=== PATIENT | male | born 1940 | race Caucasian/White ===

== ENCOUNTER 2018-02-20 15:48 | Inpatient (IN) ==
--- NOTE | 2018-02-20 17:19 | ED ---
HPI General Chief complaint: Altered Mental Status Stated complaint: altered mental Time Seen by Provider: 02/20/18 15:52 Source: patient, family and EMS Mode of arrival: EMS Limitations: altered mental status History of Present Illness HPI narrative: 77yM presenting with confusion. The patient's friend called EMS because he was speaking to the patient on the phone and said that he sounded confused. The patient states that he came to the ED today because of "chest congestion". He reports chills and cough productive of clear sputum but denies fever, chest pain, nausea or vomiting. The patient is a very poor historian and is unable to provide further meaningful contribution to HPI. The patient's is at his bedside but has severe dementia and is also unable to give further details of HPI. Related Data Home Medications Medication Instructions Recorded Confirmed alfuzosin 10 mg PO HS 02/20/18 02/20/18 amiodarone 200 mg PO DAILY 02/20/18 02/20/18 atorvastatin 40 mg PO DAILY 02/20/18 02/20/18 budesonide-formoterol 2 puff INHALATION BID 02/20/18 02/20/18 finasteride 5 mg PO DAILY 02/20/18 02/20/18 gabapentin 600 mg PO TID 02/20/18 02/20/18 lisinopril 10 mg PO DAILY 02/20/18 02/20/18 meclizine 25 mg PO TID PRN 02/20/18 02/20/18 beinximc-dej-LW-lycopen-lutein 1 tab PO DAILY 02/20/18 02/20/18 [Centrum Silver] pantoprazole 40 mg PO DAILY 02/20/18 02/20/18 rivaroxaban [Xarelto] 20 mg PO QPM 02/20/18 02/20/18 ropinirole [Requip XL] 6 mg PO DAILY 02/20/18 02/20/18 ropinirole [Requip] 0.5 - 1 mg PO Q12HR PRN 02/20/18 02/20/18 sertraline [Zoloft] 150 mg PO DAILY 02/20/18 02/20/18 triamcinolone acetonide 1 applic TOPICAL DIRECTED 02/20/18 02/20/18 Allergies Allergy/AdvReac Type Severity Reaction Status Date / Time No Known Allergies Allergy Verified 02/20/18 17:20 Review of Systems ROS Unobtainable unobtainable due to mental status PMFSH History History Provided By: Patient Social History Social History Substance History: No History of Abuse Second Hand Smoke Exposure: No Smoking Status: Never smoker Tobacco Type: Cigarettes How Often Do You Have a Drink Containing Alcohol: Never Recent Travel in [facility] within the Last 8 Weeks: No Recent Out of Country Travel within the Last 8 Weeks: No Exam Const General: healthy appearing and no acute distress HENMT Head: normocephalic and atraumatic Face and sinus: normal facial exam Eyes General: appearance normal, both eyes and all related structures Pupils: PERRL Chest Chest: normal inspection of the chest Resp Effort & Inspection: normal respiratory effort Auscultation: no rhonchi and no wheezes Cardio Rate: regular rate Rhythm: regular rhythm GI Inspection: non-distended Palpation: soft and nontender Skin General: no rashes or lesions noted Neuro Other: Oriented to person and place but not time, easily distractable No slurred speech or aphasia Motor strength 5/5, sensation intact throughout Psych Affect: normal affect Course Consultations Consultation #1: Case discussed with Dr. Cazares of neurosurgery. He would like to keep the patient's systolic BP less than 160 and agrees with admission to ICU. I also spoke with Dr. Parker of [facility], who will admit. Time: 18:53 Initial Documented Vital Signs Temperature 101.0 F H 02/20/18 17:17 Last Documented Vital Signs Temperature 99.1 F 02/20/18 17:39 Pulse Rate 92 H 02/20/18 17:41 Respiratory Rate 18 02/20/18 17:39 Blood Pressure 178/81 H 02/20/18 17:39 Pulse Oximetry 97 02/20/18 17:39 Critical Care Time Critical Care Time: Yes Total Critical Care Time: 32 Attestation: Total critical care time 32 minutes. This includes examining and stabilizing the patient, gathering a history from a source other than the patient (i.e., EMS), formulating a differential diagnosis, ordering and interpreting laboratory tests and EKG, ordering and interpreting radiology tests , discussing the patient's care with other providers (neurosurgery, pharmacy, critical care), and reversal of novel anticoagulation. Medical Decision Making MDM Narrative Medical decision making narrative: Assessment: 77yM presenting with confusion/ AMS Plan: EKG Labs CT head UA CXR Reassess Addendum: Patient found to have intracranial hemorrhage (hypertensive vs mass); he will need admission to the intensive care unit for frequent neuro exams, further workup, neurosurgery consult, and reversal of novel anticoagulant. I discussed these results and plan with the patient, who understands. Differential Diagnosis Differential Diagnosis: Differential diagnosis includes, but is not limited to: UTI, PNA, electrolyte abnormality, dehydration, anemia, ICH Lab Data Lab results reviewed: Yes I reviewed the patient's lab results. Result diagrams: 02/20/18 17:32 02/20/18 17:32 Lab Results 02/20/18 02/20/18 02/20/18 Range/Units 17:32 17:32 17:32 WBC 10.8 (4.0-11.0) th/mm3 RBC 3.99 L (4.50-5.90) mil/mm3 Hgb 13.3 (13.0-17.0) gm/dL Hct 39.9 (39.0-51.0) % MCV 99.9 (80.0-100.0) fL MCH 33.2 (27.0-34.0) pg MCHC 33.3 (32.0-36.0) % RDW 14.7 (11.6-17.2) % Plt Count 181 (150-450) th/mm3 MPV 10.8 (7.0-11.0) fL Neut % (Auto) 64.2 (16.0-70.0) % Lymph % (Auto) 19.5 (9.0-44.0) % [place] % (Auto) 13.6 H (0.0-8.0) % Eos % (Auto) 2.2 (0.0-4.0) % Baso % (Auto) 0.5 (0.0-2.0) % Neut # (Auto) 6.9 (1.8-7.7) th/mm3 Lymph # (Auto) 2.1 (1.0-4.8) th/mm3 [place] # (Auto) 1.5 H (0.0-0.9) th/mm3 Eos # (Auto) 0.2 (0.0-0.4) th/mm3 Baso # (Auto) 0.1 (0.0-0.2) th/mm3 WBC Differential . Differential Comment Auto diff final Sodium 147 H (136-145) meq/L Potassium 4.4 (3.5-5.1) meq/L Chloride 113 H (98-107) meq/L Carbon Dioxide 27.4 (21.0-32.0) meq/L Anion Gap 7 (5-15) meq/L BUN 18 (7-18) mg/dL Creatinine 1.22 (0.60-1.30) mg/dL Estimated GFR 58 L (>89) mL/min Random Glucose 78 (74-106) mg/dL Calcium 8.2 L (8.5-10.1) mg/dL Total Bilirubin 1.6 H (0.2-1.0) mg/dL AST 40 H (15-37) U/L ALT 33 (12-78) U/L Alkaline Phosphatase 67 (45-117) U/L Total Protein 6.0 L (6.4-8.2) g/dL Albumin 3.1 L (3.4-5.0) g/dL Urine Color Haylie (Yellw/Straw) Urine Clarity Hazy H (Clear) Urine pH 6.0 (5.0-8.5) Ur Specific [place] 1.023 (1.002-1.035) Urine Protein 100 H (Neg-Trace) mg/dL Urine Glucose (UA) Negative (Negative) mg/dL Urine Ketones Trace (Negative) mg/dL Urine Occult Blood Negative (Negative) Urine Nitrate Negative (Negative) Urine Bilirubin Negative (Negative) Urine Urobilinogen 4 or greater (Less than 2) mg/dL Ur Leukocyte Esterase Negative (Negative) Urine RBC 1 (0-3) /hpf Urine WBC 1 (0-5) /hpf Urine Mucus Few H (Occasional) /lpf Micro UA Comment Culture not ind Urine Culture Comments Culture not ind Imaging Data Radiologist's impression: Chest X-Ray 02/20/18 17:07 CONCLUSION: The lungs are clear. No infiltrates seen. Head CT 02/20/18 17:21 CONCLUSION: 1. 1.6 cm spontaneously hyperdense lesion in the left striatum with associated mass effect or midline shift. This suggests focal hematoma or hemorrhagic tumor. 2. Low density in the left cerebral peduncle which is nonspecific in appearance , could possibly represent extension of edema from the striatum or second lesion. Recommend further characterization of these abnormalities using MRI of the brain with and without contrast. . ECG Data Interpretation: Rate: 70-150 BPM (average 85 BPM) Rhythm: Atrial fibrillation [place]: Normal Intervals: Normal intervals, no blocks, QTc 410 ms Q waves: V2 T waves: Inverted in II, III, aVF, V4-V6 ST segments: No elevations or depressions, limited analysis due to motion artifact Impression: Rate-controlled A fib, no previous EKG available for comparison Discharge Plan Physicians Team ED Provider: Sheila Young Primary Care Provider: UNKNOWN, Rxs /Orders / Referrals /Forms Prescriptions: No Action atorvastatin 40 mg Tablet 40 mg PO DAILY RF: 0 gabapentin 600 mg Tablet 600 mg PO TID RF: 0 amiodarone 200 mg Tablet 200 mg PO DAILY RF: 0 sertraline [Zoloft] 100 mg Tablet 150 mg PO DAILY RF: 0 triamcinolone acetonide 0.1 % Cream 1 applic Topical DIRECTED RF: 0 meclizine 25 mg Tablet 25 mg PO TID PRN (Reason: Dizziness) RF: 0 pantoprazole 40 mg Tablet,Delayed Release (Dr/Ec) 40 mg PO DAILY RF: 0 ropinirole [Requip] 0.5 mg Tablet 0.5 - 1 mg PO Q12HR PRN (Reason: Restless legs) RF: 0 lisinopril 10 mg Tablet 10 mg PO DAILY RF: 0 finasteride 5 mg Tablet 5 mg PO DAILY RF: 0 alfuzosin 10 mg Tablet Extended Release 24 Hr 10 mg PO HS RF: 0 kjycnpob-xay-KW-lycopen-lutein [Centrum Silver] 0.4-300-250 mg-mcg-mcg Tablet 1 tab PO DAILY RF: 0 budesonide-formoterol 160-4.5 mcg/actuation Hfa Aerosol Inhaler 2 puff INHALATION BID RF: 0 ropinirole [Requip XL] 6 mg Tablet Extended Release 24 Hr 6 mg PO DAILY RF: 0 rivaroxaban [Xarelto] 10 mg Tablet 20 mg PO QPM RF: 0 Discharge Interventions Interventions: Vital Signs Last Done: 02/20/18 17:39 Status ED Status: With Doctor
--- NOTE | 2018-02-20 17:47 | XR ---
EXAM DATE: 02/20/2018 5:35 PM EDT AGE/SEX: 77 years / Male INDICATIONS: . Cough. Congestion. CLINICAL DATA: This is the patient's initial encounter. Patient reports that signs and symptoms have been present for 4 - 6 days and indicates a pain score of 3/10. MEDICAL/SURGICAL HISTORY: None. None. COMPARISON: No prior exams available for comparison. FINDINGS: PA and lateral views of the chest demonstrate the lungs to be symmetrically aerated without evidence of mass, infiltrate or effusion. The cardiomediastinal contours are unremarkable. Mild degenerative c hanges in the thoracic spine. CONCLUSION: The lungs are clear. No infiltrates seen. Electronically signed by: John Cespedes MD 02/20/2018 5:45 PM EDT
[2018-02-20 17:58] LABS: Baso # (Auto) 0.1 th/mm3 (0.0-0.2); Baso % (Auto) 0.5 % (0.0-2.0); Eos # (Auto) 0.2 th/mm3 (0.0-0.4); Eos % (Auto) 2.2 % (0.0-4.0); Hematocrit 39.9 % (39.0-51.0); Hemoglobin 13.3 gm/dL (13.0-17.0); Lymph # (Auto) 2.1 th/mm3 (1.0-4.8); Lymph % (Auto) 19.5 % (9.0-44.0); Mean Corpuscular HGB Conc 33.3 % (32.0-36.0); Mean Corpuscular Hemoglobin 33.2 pg (27.0-34.0); Mean Corpuscular Volume 99.9 fL (80.0-100.0); Mean Platelet Volume 10.8 fL (7.0-11.0); Mono # (Auto) 1.5 th/mm3 (0.0-0.9); Mono % (Auto) 13.6 % (0.0-8.0); Neut # (Auto) 6.9 th/mm3 (1.8-7.7); Neut % (Auto) 64.2 % (16.0-70.0); Platelet Count 181 th/mm3 (150-450); Red Blood Count 3.99 mil/mm3 (4.50-5.90); Red Cell Distribution Width 14.7 % (11.6-17.2); White Blood Count 10.8 th/mm3 (4.0-11.0)
[2018-02-20 18:10] LABS: Bilirubin,Urine Negative (Negative); Clarity,Urine Hazy (Clear); Color,Urine Amber (Yellw/Straw); Glucose,Urine (UA) Negative (Negative); Leukocyte Esterase,Urine Negative (Negative); Mucus,Urine Few /lpf (Occasional); Nitrite,Urine Negative (Negative); Specific Gravity,Urine 1.023 (1.002-1.035); Urobilinogen,Urine 4 or Greater mg/dL (Less than 2)
[2018-02-20 18:20] LABS: Albumin 3.1 g/dL (3.4-5.0); Anion Gap 7 meq/L (5-15); Aspartate Aminotransferase 40 U/L (15-37); Blood Urea Nitrogen 18 mg/dL (7-18); Calcium 8.2 mg/dL (8.5-10.1); Carbon Dioxide 27.4 meq/L (21.0-32.0); Chloride 113 meq/L (98-107); Glomerular Filtration Rate 58 mL/min (>89); Glucose,Random 78 mg/dL (74-106); Potassium 4.4 meq/L (3.5-5.1); Sodium 147 meq/L (136-145)
[2018-02-20 18:21] LABS: Alanine Aminotransferase 33 U/L (12-78)
[2018-02-20 18:23] LABS: Alkaline Phosphatase 67 U/L (45-117)
--- NOTE | 2018-02-20 18:23 | CT ---
EXAM DATE: 02/20/2018 6:03 PM EDT AGE/SEX: 77 years / Male INDICATIONS: Altered mental status; fever with episodes of confusion. CLINICAL DATA: This is the patient's initial encounter. Patient reports that signs and symptoms have been present for 1 day and indicates a pain score of 0/10. MEDICAL/SURGICAL HISTORY: None. None. RADIATION DOSE: 64.63 CTDI (mGy) COMPARISON: No prior exams available for comparison. TECHNIQUE: CT of the head without contrast. Using automated exposure control and adjustment of the mA and/or kV according to patient size, radiation dose was kept as low as reasonably achievable to ob tain optimal diagnostic quality images. DICOM format image data is available electronically for revi ew and comparison. FINDINGS: Cerebrum: Abnormal. There is a 1.6 cm round hyperdense lesion with epicentered in the left striatum causing mass effect upon the body of the left lateral ventricle and 4 mm midline shift towards the ri ght. There is surrounding hypodensity in the striatum and external capsule suggesting edema. No focal lesions in the contralateral (right) side. No extra-axial fluid. Posterior Fossa: Abnormal. There is a 1.6 cm hypodensity involving the entire left cerebral peduncle without associated mass effect. This could represent extension of supratentorial edema into the brai nstem. The michael is normal in configuration and the cerebellum is grossly intact for noncontrast techn ique. The fourth ventricle is normal in size. Extracranial: The visualized portion of the orbits is intact. There is mucosal thickening in the lef t maxillary sinus. Skull: The calvaria is intact. No evidence of skull fracture. CONCLUSION: 1. 1.6 cm spontaneously hyperdense lesion in the left striatum with associated mass effect or midlin e shift. This suggests focal hematoma or hemorrhagic tumor. 2. Low density in the left cerebral peduncle which is nonspecific in appearance, could possibly repr esent extension of edema from the striatum or second lesion. Recommend further characterization of th galdino abnormalities using MRI of the brain with and without contrast. . Electronically signed by: John Cespedes MD 02/20/2018 6:21 PM EDT
[2018-02-20] MEDS ORDERED: PROTHROMBIN COMPLEX IV.SIG ONE (18:36)
[2018-02-20] MEDS ORDERED: Labetalol HCl Inj 100 MG/20 ML Vial IV.PUSH ONE (18:51)
[2018-02-20] MEDS ORDERED: niCARdipine Inj 25 MG/10 ML Vial ONE (19:20)
[2018-02-20] MEDS: niCARdipine Inj 25 MG in Sodium Chlor 0.9% Inj 240 ML IV.CONT PRN ×2 (19:25→19:55)
[2018-02-20] MEDS ORDERED: Acetaminophen 325 MG Tablet PO PRN (20:10)
[2018-02-20] MEDS ORDERED: Bisacodyl 10 MG Supp RECTAL PRN (20:10)
[2018-02-20] MEDS ORDERED: Magnesium Sulfate Inj 2 GM in Sodium Chlor 0.9% Inj 96 ML IV.SIG PRN (20:16)
[2018-02-20] MEDS ORDERED: Potassium Phosphate Inj 30 MMOL in Sodium Chlor 0.9% Inj 250 ML IV.SIG PRN (20:16)
[2018-02-20] MEDS ORDERED: Potassium Phosphate 500 MG Soluble Tablet PO PRN ×2 (20:16)
[2018-02-20] MEDS ORDERED: Potassium Chloride 25 MEQ Effervescent Tablet PO PRN (20:16)
[2018-02-20] MEDS ORDERED: Magnesium Sulfate Inj 4 GM in Sodium Chlor 0.9% Inj 92 ML IV.SIG PRN (20:16)
[2018-02-20] MEDS ORDERED: Potassium Chlor 40 mEq Premix 40 MEQ/100 ML PIGGYBACK IV.SIG PRN ×2 (20:16)
[2018-02-20] MEDS ORDERED: Potassium Chlor 20 mEq Premix 20 MEQ/100 ML PIGGYBACK IV.SIG PRN ×2 (20:16)
[2018-02-20] MEDS ORDERED: Sodium Phosphate Inj 30 MMOL in Sodium Chlor 0.9% Inj 250 ML IV.SIG PRN (20:16)
[2018-02-20] MEDS ORDERED: Magnesium Oxide 400 MG Tablet PO PRN (20:16)
[2018-02-20] MEDS ORDERED: Labetalol HCl Inj 100 MG/20 ML Vial IV.PUSH PRN (20:17)
[2018-02-20] MEDS ORDERED: Gadobutrol PF 15 MMOL/15 ML Vial (for RAD) IV.SIG ONE (20:53)
[2018-02-20] MEDS ORDERED: ALFUZOSIN 10 MG PO SCH (21:00)
--- NOTE | 2018-02-20 21:18 | MR ---
EXAM DATE: 02/20/2018 8:59 PM EDT AGE/SEX: 77 years / Male INDICATIONS: Altered mental status. Twitching. CLINICAL DATA: This is the patient's initial encounter. Patient reports that signs and symptoms have been present for 1 day and indicates a pain score of 0/10. MEDICAL/SURGICAL HISTORY: Hypertension. Renal insufficiency, chronic. Total knee replacement, left. Total knee replacement, right. Splenectomy. COMPARISON: No prior exams available for comparison. TECHNIQUE: Multiplanar, multisequence examination of the brain was performed without and with 12cc ml Gadavist (gadobutrol) contrast as a single exam dose. FINDINGS: Noncontrast CT demonstrated a hyperdensity in the left thalamus and hypodensity in the left striatum extending into the left cerebral peduncle. The MRI examination demonstrates signal abnormality with s ignificant T2 shortening in the left mid thalamus characteristic of intermediate age blood products a nd stop there is no T1 shortening within the hematoma and there is no significant restricted diffusio n. The chronic blood products measure 1.5 cm in size and correlating with the spontaneous hyperdensit y seen on CT. No surrounding cerebral edema in the left striatum with extends into the left cerebral peduncle. No enhancing masses seen. Mild midline shift to the right measures 4 mm. No extra-axial fluid collections. No evidence of acute infarction. Visualized portion of the paranasa l sinuses and orbits demonstrate left maxillary sinus mucosal thickening without air-fluid level. CONCLUSION: 1. 1.5 cm hemorrhage in the left thalamus with signal characteristics characteristic of subacute or chronic blood. No enhancing mass seen. Surrounding cerebral edema does cause 4 mm midline shift towar ds the right and extends into the left cerebral peduncle. Electronically signed by: John Cespedes MD 02/20/2018 9:16 PM EDT
--- NOTE | 2018-02-20 23:09 | P.HPCC ---
History of Present Illness Service: Critical care medicine Primary Care Physician: UNKNOWN Chief Complaint: Altered mental status/ICH History of Present Illness: History obtained by discussion with ED staff. Patient was able to answer some questions. He is accompanied by his who has moderately severe dementia and is not able to provide any history whatsoever. 77-year-old male with past medical history of hypertension, hyperlipidemia, atrial fibrillation status post recent ablation about 2 weeks ago on anticoagulation with Xarelto, prior tobacco abuse, restless leg syndrome who recently moved to [place] from [place] 1 week ago. He presents to [facility] emergency department after his friend was speaking with him on the phone and noticed that his mental status was not at baseline. [facility] was called. Patient states that over the last 2-3 days he has had some headache "on the top of his head" and decreased appetite. He states he has fallen 3 times. He denies nausea, vomiting, photophobia, neck pain, seizures, weight loss. + cough. CT brain report states: 1.6 cm spontaneously hyperdense lesion in the left striatum with associated mass effect or midline shift. This suggests focal hematoma or hemorrhagic tumor. Low density in the left cerebral peduncle which is nonspecific in appearance, could possibly represent extension of edema from the striatum or second lesion. Recommend further characterization of these abnormalities using MRI of the brain with and without contrast. Emergency department physician discussed these findings with Dr. Cazares who recommended blood pressure control with SBP <160 and admit to returns supervisor. Pt states that his last dose of Xarelto was 02/19/18 in the morning. Not sure how reliable this information is. He has received [facility] in the emergency department. - Diagnosis (1) Intracranial hemorrhage (2) Altered mental status (3) Tobacco abuse, in remission (4) Chronic anticoagulation Inpatient Certification: I certify that the inpatient services were ordered in accordance with Medicare regulations governing the order. This includes certification that hospital inpatient services are reasonable and necessary and in the case of services not specified as inpatient-only under 42 CFR 419.22(n), that they are appropriately provided as inpatient services in accordance to with the 2-midnight benchmark under 43 CFR 412.3(e) Estimated Total Length of Stay (Days): 5 Plans for Post Hospital Care: Not yet determined Review of Systems All other systems reviewed negative except as stated in [facility] - History History Provided By: Patient - Medical History Medical History: Medical History (Last Updated 02/21/18 @ 03:47 by Gala Parker MD) Tobacco abuse, in remission (Acute) Chronic anticoagulation (Acute) Peripheral neuropathy (Acute) Anxiety (Acute) BPH (benign prostatic hyperplasia) (Acute) Depression (Acute) Atrial fibrillation (Acute) GERD (gastroesophageal reflux disease) (Acute) HLD (hyperlipidemia) (Acute) RLS (restless legs syndrome) (Acute) - Surgical History Surgical History: Surgical History (Last Updated 02/21/18 @ 03:47 by Gala Parker MD) H/O splenectomy (Acute) History of bilateral knee arthroplasty (Acute) H/O sinus surgery (Acute) - Family History Family History: Family History (Last Updated 02/21/18 @ 09:20 by Gala Parker MD) Mother Diabetes - Tobacco History Second Hand Smoke Exposure: No (. with dementia and depends on him for care. ) Tobacco Use In Past 30 Days: No Smoking Status: Former smoker Tobacco Type: Cigarettes Years Smoked: 15 Smoking End Date: 46 years ago - Alcohol History How Often Do You Have a Drink Containing Alcohol: Never - Substance Use History Substance History: No History of Abuse - Travel History Recent Travel in the [place] Within the Last 8 Weeks: No Recent Travel Out of the Country Within the Last 8 Weeks: No - Immunization History Tetanus Immunization: Unsure Hx Influenza Vaccine This Season: Yes Medications and Allergies Active Medications: Active Medications Acetaminophen (Tylenol) 650 mg PO Q6H PRN PRN Reason: pain or temp >100.4 Al Hydroxide/Mg Hydroxide (Milk Of Frannie Lind) 30 ml PO Q12H PRN PRN Reason: Mild Constipation Albuterol (Albuterol Neb (Prn)) 2.5 mg NEB Q2HR NEB PRN PRN Reason: SHORTNESS OF BREATH/WHEEZING Amiodarone HCl (Cordarone) 200 mg PO DAILY [facility] Atorvastatin Calcium (Lipitor) 40 mg PO DAILY [facility] Bisacodyl (Dulcolax Supp) 10 mg RECTAL DAILY PRN PRN Reason: SEVERE CONSITIPATION Budesonide/Formoterol Fumarate (Symbicort 160/4.5 Mcg Inh) 2 puff INH BID [facility] Chlorhexidine Gluconate (Chlorhexidine 2% Cloth) 3 pack TOPICAL DAILY@0400 [facility] Stop: 02/26/18 03:59 Chlorhexidine Gluconate (Chlorhexidine 2% Cloth) 3 pack TOPICAL DAILY@0400 PRN PRN Reason: Extra cloth needed Stop: 02/26/18 03:59 Finasteride (Proscar) 5 mg PO DAILY [facility] Gabapentin (Neurontin) 600 mg PO TID [facility] Nicardipine HCl 25 mg/ Sodium (Chloride) 250 mls @ 50 mls/hr IV.CONT TITRATE PRN; Protocol PRN Reason: Per Protocol Last Titration: 02/20/18 19:56 Dose: 6 mg/hr, 60 mls/hr Potassium Chloride (Kcl 40 Meq Premix Inj) 40 meq in 100 mls @ 25 mls/hr IV.SIG Q2H PRN PRN Reason: For Potassium 2.8 - 3.2 mEq/L Magnesium Sulfate Inj 4 gm/ (Sodium Chloride) 100 mls @ 50 mls/hr IV.SIG UNSCH PRN PRN Reason: For Magnesium 0.9 - 1.1 mg/dL Magnesium Sulfate Inj 2 gm/ (Sodium Chloride) 100 mls @ 50 mls/hr IV.SIG UNSCH PRN PRN Reason: For Magnesium 1.2 - 1.6 mg/dL Potassium Chloride (Kcl 20 Meq Premix Inj) 20 meq in 100 mls @ 50 mls/hr IV.SIG Q2H PRN PRN Reason: For Potassium 3.3 - 3.5 mEq/L Potassium Chloride (Kcl 40 Meq Premix Inj) 40 meq in 100 mls @ 25 mls/hr IV.SIG UNSCH PRN PRN Reason: For Potassium 3.3 - 3.5 mEq/L Potassium Chloride (Kcl 20 Meq Premix Inj) 20 meq in 100 mls @ 50 mls/hr IV.SIG Q2H PRN PRN Reason: For Potassium 2.8 - 3.2 mEq/L Potassium Phosphate 30 mmol/ (Sodium Chloride) 260 mls @ 42 mls/hr IV.SIG UNSCH PRN PRN Reason: SEE LABEL COMMENTS Sodium Phosphate 30 mmol/ (Sodium Chloride) 260 mls @ 42 mls/hr IV.SIG UNSCH PRN PRN Reason: For Phosphorus < 2.5 mg/dL Labetalol HCl (Trandate Inj) 10 mg IV.PUSH Q4H PRN PRN Reason: SBP >160 Lactulose (Lactulose Liq) 30 ml PO DAILY PRN PRN Reason: SEVERE CONSITIPATION Magnesium Oxide (Mag-Ox) 800 mg PO UNSCH PRN PRN Reason: For Magnesium 1.2 - 1.6 mg/dL Pantoprazole Sodium (Protonix Inj) 40 mg IV.PUSH DAILY [facility] Pt Own Med: (Alfuzosin 10mg) 0 each PO HS [facility] Potassium Bicarb/Potassium Chloride (K-Lyte Cl Eff) 50 meq PO UNSCH PRN PRN Reason: For Potassium 3.3 - 3.5 mEq/L Potassium Phosphate (K-Phos Original) 2,000 mg PO Q4H PRN PRN Reason: Phosphorus Less Than 2.5 mg/dL Potassium Phosphate (K-Phos Original) 2,000 mg PO UNSCH PRN PRN Reason: SEE LABEL COMMENTS Senna/Docusate Sodium (Alanna-Colace) 1 tab PO BID [facility] Sennosides (Senokot) 17.2 mg PO Q12H PRN PRN Reason: Moderate Constipation Sertraline HCl (Zoloft) 150 mg PO DAILY [facility] Sodium Chloride (Ns Flush) 2 ml IV.FLUSH BID [facility] Sodium Chloride (Ns Flush) 2 ml IV.FLUSH PRN PRN PRN Reason: FLUSH AFTER USING IV ACCESS Triamcinolone Acetonide (Aristocort 0.1% Cream) 1 applicatio TOPICAL [facility] Allergies Allergy/AdvReac Type Severity Reaction Status Date / Time No Known Allergies Allergy Verified 02/20/18 17:20 Home Medications Medication Instructions Recorded Confirmed Type alfuzosin 10 mg PO HS 02/20/18 02/20/18 History amiodarone 200 mg PO DAILY 02/20/18 02/20/18 History atorvastatin 40 mg PO DAILY 02/20/18 02/20/18 History budesonide-formoterol 2 puff INHALATION BID 02/20/18 02/20/18 History finasteride 5 mg PO DAILY 02/20/18 02/20/18 History gabapentin 600 mg PO TID 02/20/18 02/20/18 History lisinopril 10 mg PO DAILY 02/20/18 02/20/18 History meclizine 25 mg PO TID PRN 02/20/18 02/20/18 History otwzbzyy-oel-JV-lycopen-lutein 1 tab PO DAILY 02/20/18 02/20/18 History [Centrum Silver] pantoprazole 40 mg PO DAILY 02/20/18 02/20/18 History rivaroxaban [Xarelto] 20 mg PO QPM 02/20/18 02/20/18 History ropinirole [Requip XL] 6 mg PO DAILY 02/20/18 02/20/18 History ropinirole [Requip] 0.5 - 1 mg PO Q12HR PRN 02/20/18 02/20/18 History sertraline [Zoloft] 150 mg PO DAILY 02/20/18 02/20/18 History triamcinolone acetonide 1 applic TOPICAL DIRECTED 02/20/18 02/20/18 History Results - Labs CBC & Chem 7: 02/21/18 03:44 02/21/18 03:44 Labs: Short CBC 02/20/18 Range/Units 17:32 WBC 10.8 (4.0-11.0) th/mm3 Hgb 13.3 (13.0-17.0) gm/dL Hct 39.9 (39.0-51.0) % Plt Count 181 (150-450) th/mm3 BMP 02/20/18 17:32 Sodium 147 H Potassium 4.4 Chloride 113 H Carbon Dioxide 27.4 BUN 18 Creatinine 1.22 Calcium 8.2 L Liver Function 02/20/18 Range/Units 17:32 Total Bilirubin 1.6 H (0.2-1.0) mg/dL AST 40 H (15-37) U/L ALT 33 (12-78) U/L Alkaline Phosphatase 67 (45-117) U/L Albumin 3.1 L (3.4-5.0) g/dL Urine 02/20/18 Range/Units 17:32 Urine Color Haylie (Yellw/Straw) Urine Clarity Hazy H (Clear) Urine pH 6.0 (5.0-8.5) Ur Specific [place] 1.023 (1.002-1.035) Urine Protein 100 H (Neg-Trace) mg/dL Urine Glucose (UA) Negative (Negative) mg/dL - Imaging Impressions Head MRI 02/20/18 00:00 CONCLUSION: 1. 1.5 cm hemorrhage in the left thalamus with signal characteristics characteristic of subacute or chronic blood. No enhancing mass seen. Surrounding cerebral edema does cause 4 mm midline shift towards the right and extends into the left cerebral peduncle. Chest X-Ray 02/20/18 17:07 CONCLUSION: The lungs are clear. No infiltrates seen. Head CT 02/20/18 17:21 CONCLUSION: 1. 1.6 cm spontaneously hyperdense lesion in the left striatum with associated mass effect or midline shift. This suggests focal hematoma or hemorrhagic tumor. 2. Low density in the left cerebral peduncle which is nonspecific in appearance , could possibly represent extension of edema from the striatum or second lesion. Recommend further characterization of these abnormalities using MRI of the brain with and without contrast. . Exam Vital signs: Vital Signs 02/20/18 17:17 02/20/18 17:39 02/20/18 17:41 Temperature 101.0 F H 99.1 F Pulse Rate 97 H 92 H Respiratory Rate 18 Blood Pressure 178/81 H Pulse Oximetry 97 02/20/18 19:01 02/20/18 19:03 02/20/18 19:15 Temperature Pulse Rate 93 H 83 88 Respiratory Rate 18 18 18 Blood Pressure 171/101 H 165/91 H 173/79 H Pulse Oximetry 97 02/20/18 19:24 02/20/18 19:57 02/20/18 21:32 Temperature Pulse Rate 87 93 H 82 Respiratory Rate 18 16 14 Blood Pressure 187/67 H 198/79 H 143/92 H Pulse Oximetry Intake & Output 02/20/18 02/20/18 02/21/18 06:59 18:59 06:59 Intake Total 250 / 250 Balance 250 / 250 Weight 110 kg Intake: IV 250 / 250 Cardene Inj 25 MG In NS Inj 240 250 / 250 ML @ 5 MG/HR 50 mls/hr IV.CONT TITRATE PRN Rx#:[id number] Narrative: GENERAL: Elderly male who is sitting up in ED stretcher. He is alert but at times confused. SKIN: Warm and dry. HEAD: Atraumatic. Normocephalic. EYES: Pupils equal and round 2 mm reactive. No scleral icterus. No injection or drainage. ENT: No nasal bleeding or discharge. Mucous membranes pink and moist. NECK: Trachea midline. No JVD. CARDIOVASCULAR: irregularly irregular. No murmurs rubs or gallops. RESPIRATORY: No accessory muscle use. Clear to auscultation. Breath sounds equal bilaterally. On RA. GASTROINTESTINAL: Abdomen soft, non-tender, nondistended. Bowel sounds present. MUSCULOSKELETAL: Extremities without clubbing, cyanosis, or edema. No obvious deformities. Ecchymosis and tenderness left 5th distal metatarsal and phalynx NEUROLOGICAL: Awake and alert. No obvious cranial nerve deficits. No facial droop. no pronator drift. Five out of 5 muscle strength in the arms and legs. Normal speech. Oriented to self, year, place, state. Caprini VTE Risk Assessment Caprini VTE Risk Assessment: Moderate/High Risk (score >= 2) VTE Pharmacological Exception Reason: Intracranial lesions Caprini Risk Assessment Model: Point Value = 1 Point Value = 2 Point Value = 3 Point Value = 5 Age 41-60 Minor surgery BMI > 25 kg/m2 Swollen legs Varicose veins or History of unexplained or recurrent spontaneous Oral contraceptives or hormone replacement Sepsis (< 1 month) Serious lung disease, including pneumonia (< 1 month) Abnormal pulmonary function Acute myocardial infarction Congestive heart failure (< 1 month) History of inflammatory bowel disease Medical patient at bed rest Age 61-74 Arthroscopic surgery Major open surgery (> 45 min) Laparoscopic surgery (> 45 min) Malignancy Confined to bed (> 72 hours) Immobilizing plaster cast Central venous access Age >= 75 History of VTE Family history of VTE Factor V Leiden Prothrombin [id number] Lupus anticoagulant Anticardiolipin antibodies Elevated serum homocysteine Heparin-induced thrombocytopenia Other congenital or acquired thrombophilia Stroke (< 1 month) Elective arthroplasty Hip, pelvis, or leg fracture Acute spinal cord injury (< 1 month) Prophylaxis Regimen: Total Risk Factor Score Risk Level Prophylaxis Regimen 0-1 Low Early ambulation 2 Moderate Order ONE of the following: *Sequential Compression Device (SCD) *Heparin 5000 units SQ BID 3-4 Higher Order ONE of the following medications: *Heparin 5000 units SQ TID *Enoxaparin/Lovenox 40 mg SQ daily (WT < 150 kg, CrCl > 30 mL/min) *Enoxaparin/Lovenox 30 mg SQ daily (WT < 150 kg, CrCl > 10-29 mL/min) *Enoxaparin/Lovenox 30 mg SQ BID (WT < 150 kg, CrCl > 30 mL/min) AND/OR *Sequential Compression Device (SCD) 5 or more Highest Order ONE of the following medications: *Heparin 5000 units SQ TID (Preferred with Epidurals) *Enoxaparin/Lovenox 40 mg SQ daily (WT < 150 kg, CrCl > 30 mL/min) *Enoxaparin/Lovenox 30 mg SQ daily (WT < 150 kg, CrCl > 10-29 mL/min) *Enoxaparin/Lovenox 30 mg SQ BID (WT < 150 kg, CrCl > 30 mL/min) AND *Sequential Compression Device (SCD) Assessment and Plan - Problem List (1) Intracranial hemorrhage Code(s): I62.9 - Nontraumatic intracranial hemorrhage, unspecified Status: Acute (2) Altered mental status Code(s): R41.82 - Altered mental status, unspecified Status: Acute (3) Tobacco abuse, in remission Code(s): F17.201 - Nicotine dependence, unspecified, in remission Status: Acute (4) Chronic anticoagulation Code(s): Z79.01 - correction (current) use of anticoagulants Status: Acute - Assessment and Plan Plan: NEURO: Subacute L Thalamic and basal ganglia hemorrhage Fall Restless leg syndrome Anxiety Depression MRI with 1.5 cm hemorrhage in left thalamus. There is edema with mass-effect, no mass lesion. Maintain systolic blood pressure less than 160. Hold Xarelto Received [facility] will follow up Continue ropinirole ER 6 mg p.o. (takes at 7 pm, pt to use own med because not on formulary) and 0.5 mg p.o. q12 (takes at bedtime) Continue gabapentin 600 mg p.o. 3 times daily, Zoloft 150 mg daily. RESP: COPD History of tobacco abuse On room air Continue Budesonide/formoterol 2 puffs inh bid. Albuterol prn. CV: Atrial fibrillation status post recent ablation 2weeks ago Chronic anticoagulation with warfarin Hyperlipidemia Continue amiodarone 200 mg daily Continue Lipitor 40 mg p.o. daily Cardene to maintain systolic blood pressure less than 160 GI: GERD Bedside swallow eval and then advance diet as appropriate.. Will request speech therapy consult if needed. FEN/RENAL: BPH Monitor electrolyte and replace as indicated per ICU electrolyte placement protocol Continue tamsulosin ID: Fever Isolated fever. ?secondary to ICH. Ua neg and cXR clear. f.u blood cultures. HAd some viral URI sxs. Watch off abx for now. HEME: Monitor CBC. ENDO: Euglycemic. PROPH: SCDs for DVT prophylaxis. Pharmacologic DVT prophylaxis contraindicated due to intracerebral hemorrhage. Protonix 40 mg IV daily for stress ulcer prophylaxis. ACCESS: Peripheral IV providing adequate access at this time FULL CODE Brother updated (John Patino [phone] and [phone] [place]) Level 3 H&P
[2018-02-21] MEDS ORDERED: Chlorhexidine Gluconate 2% 1 Pack (2 Cloths) TOPICAL PRN (04:00)
[2018-02-21] MEDS: niCARdipine Inj 25 MG in Sodium Chlor 0.9% Inj 240 ML IV.CONT PRN ×5 (04:28→21:43)
[2018-02-21 04:32] LABS: Baso % (Auto) 0.4 % (0.0-2.0); Eos # (Auto) 0.3 th/mm3 (0.0-0.4); Eos % (Auto) 3.2 % (0.0-4.0); Hematocrit 41.7 % (39.0-51.0); Hemoglobin 14.1 gm/dL (13.0-17.0); Lymph # (Auto) 2.2 th/mm3 (1.0-4.8); Lymph % (Auto) 20.9 % (9.0-44.0); Mean Corpuscular HGB Conc 33.9 % (32.0-36.0); Mean Corpuscular Hemoglobin 32.8 pg (27.0-34.0); Mean Corpuscular Volume 96.7 fL (80.0-100.0); Mean Platelet Volume 10.3 fL (7.0-11.0); Mono # (Auto) 1.4 th/mm3 (0.0-0.9); Mono % (Auto) 13.2 % (0.0-8.0); Neut # (Auto) 6.5 th/mm3 (1.8-7.7); Neut % (Auto) 62.3 % (16.0-70.0); Platelet Count 186 th/mm3 (150-450); Red Blood Count 4.31 mil/mm3 (4.50-5.90); Red Cell Distribution Width 14.2 % (11.6-17.2); White Blood Count 10.5 th/mm3 (4.0-11.0)
[2018-02-21 04:53] LABS: Activated Partial Thrombo Time 24.3 sec (24.3-30.1); INR 1.1 Ratio; Prothrombin Time 10.7 sec (9.8-11.6)
[2018-02-21 05:10] LABS: Alanine Aminotransferase 36 U/L (12-78); Albumin 3.6 g/dL (3.4-5.0); Alkaline Phosphatase 75 U/L (45-117); Anion Gap 9 meq/L (5-15); Aspartate Aminotransferase 40 U/L (15-37); Blood Urea Nitrogen 15 mg/dL (7-18); Calcium 8.4 mg/dL (8.5-10.1); Carbon Dioxide 24.9 meq/L (21.0-32.0); Chloride 111 meq/L (98-107); Glomerular Filtration Rate 73 mL/min (>89); Glucose,Random 77 mg/dL (74-106); Potassium 3.2 meq/L (3.5-5.1); Sodium 145 meq/L (136-145); Total Protein 6.7 g/dL (6.4-8.2); Troponin I 0.04 ng/mL (0.02-0.05)
[2018-02-21] MEDS: Budesonide-Formoterol 160/4.5 MCG 6 GM Inhaler INH SCH ×3 (09:26→21:45)
[2018-02-21] MEDS: Senna/Docusate Sodium 8.6/50 MG Tablet PO SCH ×3 (09:26→21:45)
[2018-02-21] MEDS: Chlorhexidine Gluconate 2% 1 Pack (2 Cloths) TOPICAL SCH (09:26)
[2018-02-21] MEDS: Amiodarone 200 MG Tablet PO SCH (09:28)
[2018-02-21] MEDS: Gabapentin 300 MG Capsule PO SCH ×3 (09:28→18:54)
[2018-02-21] MEDS: Pantoprazole Inj 40 MG Vial IV.PUSH SCH (09:28)
[2018-02-21] MEDS: Finasteride 5 MG Tablet PO SCH (09:28)
[2018-02-21] MEDS: Sertraline 100 MG Tablet PO SCH (09:30)
--- NOTE | 2018-02-21 09:43 | XR ---
EXAM DATE: 02/21/2018 9:15 AM EDT AGE/SEX: 77 years / Male INDICATIONS: Left foot pain. Patient stated that he hit it on a tree. CLINICAL DATA: This is the patient's initial encounter. Patient reports that signs and symptoms have been present for 4 - 6 days and indicates a pain score of 6/10. MEDICAL/SURGICAL HISTORY: None. None. COMPARISON: No prior exams available for comparison. FINDINGS: Limited AP and lateral views of the left foot were obtained and not a standard 3 view trauma study li miting the sensitivity for detection of subtle fractures. There is diffuse patchy osteopenia with no visualized fracture or malalignment identified. There are mild degenerative changes. There is a small spur off the inferior calcaneus at the site of attachment of the plantar aponeurosis. CONCLUSION: 1. Limited 2 view exam. 2. No visualized fracture or malalignment. 3. Osteopenia and osteoarthritic change. 4. Small spur off the inferior calcaneus. 5. If clinical concern remains then a standard 3 view trauma study could be performed. Electronically signed by: Augusto Sampson MD 02/21/2018 9:41 AM EDT
--- NOTE | 2018-02-21 10:34 | P.CON ---
History of Present Illness Service: Neurosurgery Consult date: 02/21/18 Requesting Physician: Gala Parker Reason for Consult: Left basal ganglia hemorrhage Primary Care Provider: UNKNOWN Chief Complaint: Altered mental status/ICH History of Present Illness: 77-year-old male with past medical history of hypertension, hyperlipidemia, atrial fibrillation status post recent ablation about 2 weeks ago on anticoagulation with Xarelto, prior tobacco abuse, restless leg syndrome who recently moved to [place] from [place] 1 week ago. He presents to [facility] emergency department after his friend was speaking with him on the phone and noticed that his mental status was not at baseline. [facility] was called. Patient states that over the last 2-3 days he has had some headache "on the top of his head" and decreased appetite. He states he has fallen 3 times. He denies nausea, vomiting, photophobia, neck pain, seizures, weight loss. Brother is at bedside and relates that he is more confused although since last night he has improved. He was hypertensive in the emergency room and has been on Cardene drip overnight. CT scan of the head as well as subsequent MRI scan of the brain with contrast reveals a 1.6 cm left basal ganglia hemorrhage with some surrounding edema but no underlying mass. Review of Systems Constitutional: Reports headache(s), Reports lack of energy, Denies anorexia, Denies body ache(s), Denies chills, Denies daytime sleepiness, Denies excessive sweating, Denies fatigue, Denies fever(s), Denies increased appetite, Denies malaise, Denies night sweats, Denies weakness, Denies weight gain, Denies weight loss, Denies other Eyes: Denies blind spots, Denies blurry vision, Denies bulging eyes, Denies change in vision, Denies double vision, Denies discharge, Denies dry eyes, Denies floaters, Denies irritation, Denies itchy eyes, Denies loss of vision, Denies pain, Denies requires corrective lenses, Denies sensitivity to light, Denies other Ears, Nose, Mouth, and Throat: Denies abnormal hearing, Denies bleeding gums, Denies bad breath, Denies change in voice, Denies dental pain, Denies difficulty swallowing, Denies dizziness, Denies dry mouth, Denies ear discharge , Denies ear pain, Denies facial pain, Denies headache(s), Denies hearing loss, Denies hoarseness, Denies lip swelling, Denies nosebleed, Denies mouth lesions, Denies mouth pain, Denies nasal congestion, Denies nasal discharge, Denies nasal obstruction, Denies nasal trauma, Denies neck lump, Denies neck pain, Denies nose pain, Denies pain with swallowing, Denies poor balance, Denies post nasal drip, Denies ringing in the ears, Denies sinus pain, Denies sinus pressure , Denies sore throat, Denies throat swelling, Denies tongue swelling, Denies other Cardiovascular: Denies chest pain, Denies chest pain at rest, Denies chest pain with activity, Denies excessive sweating, Denies fainting, Denies fast heart rate, Denies foot swelling, Denies generalized swelling, Denies irregular heart rhythm, Denies leg pain with activity, Denies leg sores, Denies leg swelling, Denies lightheadedness, Denies radiating jaw, neck or arm pain, Denies rapid, pounding, or irregular heartbeat, Denies shortness of breath, Denies shortness of breath with activity, Denies shortness of breath when lying down, Denies shortness of breath causing sudden awakening, Denies slow heart rate, Denies other Respiratory: Denies change in phlegm color, Denies chest congestion, Denies cough, Denies coughing up blood, Denies excessive phlegm production, Denies pain on inspiration, Denies pain with cough, Denies shortness of breath, Denies shortness of breath with activity, Denies snoring, Denies stridor, Denies wheezing, Denies other Gastrointestinal: Denies abdominal pain, Denies belching, Denies black, tarry stools, Denies bloating, Denies bright, red blood in stools, Denies change in bowel habits, Denies constant urge to pass stool, Denies change in stools, Denies coffee ground vomit, Denies constipation, Denies cramping, Denies difficulty swallowing, Denies excessive passing of gas, Denies feeling full early, Denies heartburn, Denies incontinent of stools, Denies loose stools, Denies nausea, Denies pain with swallowing, Denies vomiting, Denies vomiting blood, Denies other Genitourinary: Denies blood in semen, Denies blood in urine, Denies decreased urination, Denies difficulty urinating, Denies difficulty with ejaculations, Denies erectile dysfunction, Denies genital lesions, Denies genital pain, Denies painful urination, Denies side pain, Denies frequent nighttime urination , Denies painful ejaculations, Denies penile discharge, Denies scrotal swelling , Denies testicle lump, Denies testicle pain, Denies urinary frequency, Denies urinary hesitancy, Denies urinary incontinence, Denies urinary urgency, Denies other Musculoskeletal: Reports muscle weakness, Reports stiffness, Denies abnormal walking, Denies back pain, Denies body aches, Denies decreased muscle mass, Denies deformity, Denies joint pain, Denies joint swelling, Denies limited joint movement, Denies loss of height, Denies muscle cramps, Denies neck pain, Denies numbness, Denies radiating pain into limb, Denies tingling, Denies other Skin/Breast: Denies acne, Denies bleeding lesions, Denies boil, Denies breast swelling, Denies breast skin changes, Denies breast pain, Denies breast lump, Denies change in breast shape, Denies change in hair, Denies change in skin color, Denies changing lesions, Denies dry skin, Denies excessive hair growth, Denies hair loss, Denies itching, Denies lesions, Denies nail changes, Denies new lesions, Denies nipple discharge, Denies non-healing lesions, Denies redness , Denies sensitivity to light, Denies rash, Denies skin pain, Denies skin ulcer , Denies sores, Denies stretch kidd, Denies unusual bruising, Denies wounds, Denies yellowing of the skin, Denies other Neurologic: Reports abnormal speech, Reports abnormal walking, Reports confusion , Reports headache(s), Reports lack of coordination, Reports unsteadiness, Reports weakness, Denies abnormal hearing, Denies abnormal movements, Denies behavioral changes, Denies burning sensations, Denies dizziness, Denies fainting , Denies frequent falls, Denies localized weakness, Denies loss of vision, Denies memory loss, Denies numbness, Denies other visual disturbances, Denies radiating pain, Denies restless legs, Denies convulsions, Denies seizure-like activity, Denies sensory deficit, Denies tingling, Denies tingling/numbness/ burning sensations, Denies tremor(s), Denies other Psychiatric: Denies abnormal sleep pattern, Denies anxiety, Denies behavioral changes, Denies change in appetite, Denies change in sex drive, Denies confusion , Denies depression, Denies difficulty concentrating, Denies hearing things others do not hear, Denies hopelessness, Denies irritability, Denies lack of enjoyment, Denies memory loss, Denies mood swings, Denies panic attacks, Denies paranoia, Denies seeing things others do not see, Denies sensing things others do not sense, Denies tactile hallucinations, Denies thoughts of hurting/killing others, Denies thoughts of hurting/killing yourself, Denies other Endocrine: Denies cold intolerance, Denies excessive sweating, Denies flushing, Denies heat intolerance, Denies increased hunger, Denies increased thirst, Denies increased urination, Denies rapid, pounding, or irregular heartbeat, Denies other Hematologic/Lymphatic: Reports easy bleeding, Reports easy bruising, Denies enlarged lymph nodes, Denies other Allergic/Immunologic: Denies GI upset with certain foods, Denies hives, Denies itchy eyes, Denies lip swelling, Denies seasonal runny nose, Denies throat swelling, Denies tongue swelling, Denies wheezing, Denies other PMFSH - History History Provided By: Patient - Medical History Medical History: Medical History (Last Updated 02/21/18 @ 03:47 by Gala Parker MD) Tobacco abuse, in remission (Acute) Chronic anticoagulation (Acute) Peripheral neuropathy (Acute) Anxiety (Acute) BPH (benign prostatic hyperplasia) (Acute) Depression (Acute) Atrial fibrillation (Acute) GERD (gastroesophageal reflux disease) (Acute) HLD (hyperlipidemia) (Acute) RLS (restless legs syndrome) (Acute) - Surgical History Surgical History: Surgical History (Last Updated 02/21/18 @ 03:47 by Gala Parker MD) H/O splenectomy (Acute) History of bilateral knee arthroplasty (Acute) H/O sinus surgery (Acute) - Family History Family History: Family History (Last Updated 02/21/18 @ 09:20 by Gala Parker MD) Mother Diabetes - Tobacco History Second Hand Smoke Exposure: No (. with dementia and depends on him for care. ) Tobacco Use In Past 30 Days: No Smoking Status: Former smoker Tobacco Type: Cigarettes Years Smoked: 15 Smoking End Date: 46 years ago - Alcohol History How Often Do You Have a Drink Containing Alcohol: Never - Substance Use History Substance History: No History of Abuse - Travel History Recent Travel in the [place] Within the Last 8 Weeks: No Recent Travel Out of the Country Within the Last 8 Weeks: No - Immunization History Tetanus Immunization: Unsure Hx Influenza Vaccine This Season: Yes Medications and Allergies Active Medications: Active Medications Acetaminophen (Tylenol) 650 mg PO Q6H PRN PRN Reason: pain or temp >100.4 Al Hydroxide/Mg Hydroxide (Milk Of Frannie Lind) 30 ml PO Q12H PRN PRN Reason: Mild Constipation Albuterol (Albuterol Neb (Prn)) 2.5 mg NEB Q2HR NEB PRN PRN Reason: SHORTNESS OF BREATH/WHEEZING Amiodarone HCl (Cordarone) 200 mg PO DAILY [facility] Last Admin: 02/21/18 09:28 Dose: 200 mg Atorvastatin Calcium (Lipitor) 40 mg PO DAILY [facility] Last Admin: 02/21/18 09:32 Dose: 40 mg Bisacodyl (Dulcolax Supp) 10 mg RECTAL DAILY PRN PRN Reason: SEVERE CONSITIPATION Budesonide/Formoterol Fumarate (Symbicort 160/4.5 Mcg Inh) 2 puff INH BID [facility] Last Admin: 02/21/18 09:32 Dose: 2 puff Chlorhexidine Gluconate (Chlorhexidine 2% Cloth) 3 pack TOPICAL DAILY@0400 [facility] Stop: 02/26/18 03:59 Last Admin: 02/21/18 09:26 Dose: Not Given Chlorhexidine Gluconate (Chlorhexidine 2% Cloth) 3 pack TOPICAL DAILY@0400 PRN PRN Reason: Extra cloth needed Stop: 02/26/18 03:59 Finasteride (Proscar) 5 mg PO DAILY [facility] Last Admin: 02/21/18 09:28 Dose: 5 mg Gabapentin (Neurontin) 600 mg PO TID [facility] Last Admin: 02/21/18 09:28 Dose: 600 mg Nicardipine HCl 25 mg/ Sodium (Chloride) 250 mls @ 50 mls/hr IV.CONT TITRATE PRN; Protocol PRN Reason: Per Protocol Last Titration: 07/23/18 07:45 Dose: 5 mg/hr, 50 mls/hr Potassium Chloride (Kcl 40 Meq Premix Inj) 40 meq in 100 mls @ 25 mls/hr IV.SIG Q2H PRN PRN Reason: For Potassium 2.8 - 3.2 mEq/L Magnesium Sulfate Inj 4 gm/ (Sodium Chloride) 100 mls @ 50 mls/hr IV.SIG UNSCH PRN PRN Reason: For Magnesium 0.9 - 1.1 mg/dL Magnesium Sulfate Inj 2 gm/ (Sodium Chloride) 100 mls @ 50 mls/hr IV.SIG UNSCH PRN PRN Reason: For Magnesium 1.2 - 1.6 mg/dL Potassium Chloride (Kcl 20 Meq Premix Inj) 20 meq in 100 mls @ 50 mls/hr IV.SIG Q2H PRN PRN Reason: For Potassium 3.3 - 3.5 mEq/L Potassium Chloride (Kcl 40 Meq Premix Inj) 40 meq in 100 mls @ 25 mls/hr IV.SIG UNSCH PRN PRN Reason: For Potassium 3.3 - 3.5 mEq/L Potassium Chloride (Kcl 20 Meq Premix Inj) 20 meq in 100 mls @ 50 mls/hr IV.SIG Q2H PRN PRN Reason: For Potassium 2.8 - 3.2 mEq/L Potassium Phosphate 30 mmol/ (Sodium Chloride) 260 mls @ 42 mls/hr IV.SIG UNSCH PRN PRN Reason: SEE LABEL COMMENTS Sodium Phosphate 30 mmol/ (Sodium Chloride) 260 mls @ 42 mls/hr IV.SIG UNSCH PRN PRN Reason: For Phosphorus < 2.5 mg/dL Labetalol HCl (Trandate Inj) 10 mg IV.PUSH Q4H PRN PRN Reason: SBP >160 Lactulose (Lactulose Liq) 30 ml PO DAILY PRN PRN Reason: SEVERE CONSITIPATION Magnesium Oxide (Mag-Ox) 800 mg PO UNSCH PRN PRN Reason: For Magnesium 1.2 - 1.6 mg/dL Pantoprazole Sodium (Protonix Inj) 40 mg IV.PUSH DAILY [facility] Last Admin: 02/21/18 09:28 Dose: 40 mg Pt Own Med: (Alfuzosin 10mg) 0 each PO HS [facility] Patient Own Medication (Patient Own Medication) 6 each PO HS [facility] Potassium Bicarb/Potassium Chloride (K-Lyte Cl Eff) 50 meq PO UNSCH PRN PRN Reason: For Potassium 3.3 - 3.5 mEq/L Potassium Phosphate (K-Phos Original) 2,000 mg PO Q4H PRN PRN Reason: Phosphorus Less Than 2.5 mg/dL Potassium Phosphate (K-Phos Original) 2,000 mg PO UNSCH PRN PRN Reason: SEE LABEL COMMENTS Ropinirole HCl (Requip) 0.5 mg PO Q12H PRN PRN Reason: RESTLESS LEGS Senna/Docusate Sodium (Alanna-Colace) 1 tab PO BID [facility] Last Admin: 02/21/18 09:32 Dose: 1 tab Sennosides (Senokot) 17.2 mg PO Q12H PRN PRN Reason: Moderate Constipation Sertraline HCl (Zoloft) 150 mg PO DAILY [facility] Last Admin: 02/21/18 09:30 Dose: 150 mg Sodium Chloride (Ns Flush) 2 ml IV.FLUSH BID [facility] Last Admin: 02/21/18 09:33 Dose: 2 ml Sodium Chloride (Ns Flush) 2 ml IV.FLUSH PRN PRN PRN Reason: FLUSH AFTER USING IV ACCESS Triamcinolone Acetonide (Aristocort 0.1% Cream) 1 applicatio TOPICAL [facility] Allergies Allergy/AdvReac Type Severity Reaction Status Date / Time No Known Allergies Allergy Verified 02/20/18 17:20 Home Medications Medication Instructions Recorded Confirmed Type alfuzosin 10 mg PO HS 02/20/18 02/20/18 History amiodarone 200 mg PO DAILY 02/20/18 02/20/18 History atorvastatin 40 mg PO DAILY 02/20/18 02/20/18 History budesonide-formoterol 2 puff INHALATION BID 02/20/18 02/20/18 History finasteride 5 mg PO DAILY 02/20/18 02/20/18 History gabapentin 600 mg PO TID 02/20/18 02/20/18 History lisinopril 10 mg PO DAILY 02/20/18 02/20/18 History meclizine 25 mg PO TID PRN 02/20/18 02/20/18 History cezxnlde-kxb-RW-lycopen-lutein 1 tab PO DAILY 02/20/18 02/20/18 History [Centrum Silver] pantoprazole 40 mg PO DAILY 02/20/18 02/20/18 History rivaroxaban [Xarelto] 20 mg PO QPM 02/20/18 02/20/18 History ropinirole [Requip XL] 6 mg PO DAILY 02/20/18 02/20/18 History ropinirole [Requip] 0.5 - 1 mg PO Q12HR PRN 02/20/18 02/20/18 History sertraline [Zoloft] 150 mg PO DAILY 02/20/18 02/20/18 History triamcinolone acetonide 1 applic TOPICAL DIRECTED 02/20/18 02/20/18 History Physical Exam Vital signs: Vital Signs 02/20/18 17:17 02/20/18 17:39 02/20/18 17:41 Temperature 101.0 F H 99.1 F Pulse Rate 97 H 92 H Respiratory Rate 18 Blood Pressure 178/81 H Pulse Oximetry 97 02/20/18 19:01 02/20/18 19:03 02/20/18 19:15 Temperature Pulse Rate 93 H 83 88 Respiratory Rate 18 18 18 Blood Pressure 171/101 H 165/91 H 173/79 H Pulse Oximetry 97 02/20/18 19:24 02/20/18 19:57 02/20/18 21:32 Temperature Pulse Rate 87 93 H 82 Respiratory Rate 18 16 14 Blood Pressure 187/67 H 198/79 H 143/92 H Pulse Oximetry 02/20/18 22:00 02/21/18 00:00 02/21/18 02:00 Temperature Pulse Rate 85 86 86 Respiratory Rate Blood Pressure Pulse Oximetry 02/21/18 04:00 02/21/18 06:00 Temperature 98.6 F Pulse Rate 88 88 Respiratory Rate 18 Blood Pressure 128/65 Pulse Oximetry 95 Intake & Output 02/20/18 02/21/18 02/21/18 18:59 06:59 18:59 Intake Total 500 / 500 250 / 250 Output Total 600 / 600 Balance -100 / -100 250 / 250 Weight 110 kg 120.1 kg Intake: IV 500 / 500 250 / 250 Cardene Inj 25 MG In NS Inj 240 500 / 500 250 / 250 ML @ 5 MG/HR 50 mls/hr IV.CONT TITRATE PRN Rx#:[id number] Output: Urine 600 / 600 Other: # Bowel Movements 0 Weight On Admission 120.1 kg - Constitutional no acute distress - Routine HEENT Exam Head: Present: normocephalic, atraumatic Eye: Present: EOMI, PERRL ENT: Present: mucous membranes moist, oropharynx clear, dentition normal, nares patent, external ear normal - Routine Neck Exam Present: supple, full ROM - Routine Respiratory Exam Present: CTA bilaterally - Routine Cardiovascular Exam Present: S1, S2, irregular rhythm, irregularly irregular - Routine Abdominal Exam Present: soft, normoactive bowel sounds - Routine Extremities Exam Present: full ROM, pulses intact, normal capillary refill - Routine Skin Exam Present: intact, normal turgor - Routine Neurological Exam Present: alert, CN II-XII intact, normal reflexes, pronator drift, normal speech He is awake alert he knows his name he knows is in the hospital not oriented to the exact date, extraocular muscles are intact, face is symmetric tongue is midline he moves all 4 extremities although has a right pronator drift. Speech is fluent and appreciates light touch sensation bilaterally. - Routine Psychiatric Exam Present: normal affect, cooperative Assessment and Plan - Assessment (1) Basal ganglia hemorrhage Code(s): I61.0 - Nontraumatic intracerebral hemorrhage in hemisphere, subcortical Status: Acute (2) Hypertension Code(s): I10 - Essential (primary) hypertension Status: Acute (3) Intracranial hemorrhage Code(s): I62.9 - Nontraumatic intracranial hemorrhage, unspecified Status: Acute (4) Medication induced coagulopathy Code(s): D68.9 - Coagulation defect, unspecified; T50.905A - Adverse effect of unspecified drugs, medicaments and biological substances, initial encounter Status: Acute (5) Atrial fibrillation Code(s): I48.91 - Unspecified atrial fibrillation Status: Acute - Plan 77-year-old gentleman with a several day history of confusion after a fall where he tripped and fell forward but did not strike his head or lose consciousness. He is found to have a 1.6 cm left basal ganglia hemorrhage with some surrounding edema which is stable on follow-up MRI scan with no enhancing mass noted. This is characteristic of a hypertensive bleed and he is on Cardene drip for hypertension regulation. He is also on chronic anticoagulation with Xarelto for his atrial fibrillation. Recommend hypertension regulation and holding off anticoagulation for 10-14 days. Increase diet and activity status with the physical therapy, Occupational Therapy and speech therapy involvement. At this point the plan is for nonsurgical medical management. Discussed with patient and updated the brother at bedside. Radiology Note Impressions Head MRI 02/20/18 00:00 CONCLUSION: 1. 1.5 cm hemorrhage in the left thalamus with signal characteristics characteristic of subacute or chronic blood. No enhancing mass seen. Surrounding cerebral edema does cause 4 mm midline shift towards the right and extends into the left cerebral peduncle. Chest X-Ray 02/20/18 17:07 CONCLUSION: The lungs are clear. No infiltrates seen. Head CT 02/20/18 17:21 CONCLUSION: 1. 1.6 cm spontaneously hyperdense lesion in the left striatum with associated mass effect or midline shift. This suggests focal hematoma or hemorrhagic tumor. 2. Low density in the left cerebral peduncle which is nonspecific in appearance , could possibly represent extension of edema from the striatum or second lesion. Recommend further characterization of these abnormalities using MRI of the brain with and without contrast. . Foot X-Ray 02/21/18 00:00 CONCLUSION: 1. Limited 2 view exam. 2. No visualized fracture or malalignment. 3. Osteopenia and osteoarthritic change. 4. Small spur off the inferior calcaneus. 5. If clinical concern remains then a standard 3 view trauma study could be performed. (2) Hypertension Qualifiers: Hypertension type: essential hypertension Qualified Code(s): I10 - Essential (primary) hypertension
--- NOTE | 2018-02-21 16:33 | P.PNCC ---
Subjective Subjective Remarks/Hospital Course: History obtained by discussion with ED staff. Patient was able to answer some questions. He is accompanied by his who has moderately severe dementia and is not able to provide any history whatsoever. 77-year-old male with past medical history of hypertension, hyperlipidemia, atrial fibrillation status post recent ablation about 2 weeks ago on anticoagulation with Xarelto, prior tobacco abuse, restless leg syndrome who recently moved to [place] from [place] 1 week ago. He presents to [facility] emergency department after his friend was speaking with him on the phone and noticed that his mental status was not at baseline. EVAC was called. Patient states that over the last 2-3 days he has had some headache "on the top of his head" and decreased appetite. He states he has fallen 3 times. He denies nausea, vomiting, photophobia, neck pain, seizures, weight loss. + cough. CT brain report states: 1.6 cm spontaneously hyperdense lesion in the left striatum with associated mass effect or midline shift. This suggests focal hematoma or hemorrhagic tumor. Low density in the left cerebral peduncle which is nonspecific in appearance, could possibly represent extension of edema from the striatum or second lesion. Recommend further characterization of these abnormalities using MRI of the brain with and without contrast. Emergency department physician discussed these findings with Dr. Cazares who recommended blood pressure control with SBP <160 and admit to annual giving officer. Pt states that his last dose of Xarelto was 02/19/18 in the morning. Not sure how reliable this information is. He has received [facility] in the emergency department. 02/21: Remains conversant, responsive. Moves 4 limbs to command. Protects airway. MRI with 4 mm midline shift apparent. Objective Vital Signs / I&O: Vital Signs 02/20/18 17:17 02/20/18 17:39 02/20/18 17:41 Temperature 101.0 F H 99.1 F Pulse Rate 97 H 92 H Respiratory Rate 18 Blood Pressure 178/81 H Pulse Oximetry 97 02/20/18 19:01 02/20/18 19:03 02/20/18 19:15 Temperature Pulse Rate 93 H 83 88 Respiratory Rate 18 18 18 Blood Pressure 171/101 H 165/91 H 173/79 H Pulse Oximetry 97 02/20/18 19:24 02/20/18 19:57 02/20/18 21:32 Temperature Pulse Rate 87 93 H 82 Respiratory Rate 18 16 14 Blood Pressure 187/67 H 198/79 H 143/92 H Pulse Oximetry 02/20/18 22:00 02/21/18 00:00 02/21/18 02:00 Temperature Pulse Rate 85 86 86 Respiratory Rate Blood Pressure Pulse Oximetry 02/21/18 04:00 02/21/18 06:00 Temperature 98.6 F Pulse Rate 88 88 Respiratory Rate 18 Blood Pressure 128/65 Pulse Oximetry 95 Intake & Output 02/20/18 02/21/18 02/21/18 18:59 06:59 18:59 Intake Total 500 / 500 750 / 750 Output Total 600 / 600 Balance -100 / -100 750 / 750 Weight 110 kg 120.1 kg Intake: IV 500 / 500 750 / 750 Cardene Inj 25 MG In NS Inj 240 500 / 500 750 / 750 ML @ 5 MG/HR 50 mls/hr IV.CONT TITRATE PRN Rx#:[id number] Output: Urine 600 / 600 Other: # Bowel Movements 0 Weight On Admission 120.1 kg Result Diagrams: 02/21/18 03:44 02/21/18 03:44 Objective Remarks: - Imaging Head MRI 02/20/18 00:00 CONCLUSION: 1. 1.5 cm hemorrhage in the left thalamus with signal characteristics characteristic of subacute or chronic blood. No enhancing mass seen. Surrounding cerebral edema does cause 4 mm midline shift towards the right and extends into the left cerebral peduncle. Chest X-Ray 02/20/18 17:07 CONCLUSION: The lungs are clear. No infiltrates seen. Head CT 02/20/18 17:21 CONCLUSION: 1. 1.6 cm spontaneously hyperdense lesion in the left striatum with associated mass effect or midline shift. This suggests focal hematoma or hemorrhagic tumor. 2. Low density in the left cerebral peduncle which is nonspecific in appearance , could possibly represent extension of edema from the striatum or second lesion. Recommend further characterization of these abnormalities using MRI of the brain with and without contrast. . Exam Vital signs: Vital Signs 02/20/18 17:17 02/20/18 17:39 02/20/18 17:41 Temperature 101.0 F H 99.1 F Pulse Rate 97 H 92 H Respiratory Rate 18 Blood Pressure 178/81 H Pulse Oximetry 97 02/20/18 19:01 02/20/18 19:03 02/20/18 19:15 Temperature Pulse Rate 93 H 83 88 Respiratory Rate 18 18 18 Blood Pressure 171/101 H 165/91 H 173/79 H Pulse Oximetry 97 02/20/18 19:24 02/20/18 19:57 02/20/18 21:32 Temperature Pulse Rate 87 93 H 82 Respiratory Rate 18 16 14 Blood Pressure 187/67 H 198/79 H 143/92 H Pulse Oximetry Intake & Output 02/20/18 02/20/18 02/21/18 06:59 18:59 06:59 Intake Total 250 / 250 Balance 250 / 250 Weight 110 kg Intake: IV 250 / 250 Cardene Inj 25 MG In NS Inj 240 250 / 250 ML @ 5 MG/HR 50 mls/hr IV.CONT TITRATE PRN Rx#:[id number] EXAM: GENERAL: Elderly male in NAD. SKIN: Warm and dry. HEAD: Atraumatic. Normocephalic. EYES: Pupils equal and round 2 mm reactive. No scleral icterus. No injection or drainage. ENT: No nasal bleeding or discharge. Mucous membranes pink and moist. NECK: Trachea midline. Airway widely patent. CARDIOVASCULAR: irregularly irregular. No murmurs rubs or gallops. No JVD. RESPIRATORY: No accessory muscle use. Clear to auscultation. Breath sounds equal bilaterally. Comfortable pattern. GASTROINTESTINAL: Abdomen soft, non-tender, nondistended. Bowel sounds present. MUSCULOSKELETAL: Extremities without clubbing, cyanosis, or edema. No obvious deformities. Ecchymosis and tenderness left 5th distal metatarsal and finger. NEUROLOGICAL: Awake, alert. No obvious cranial nerve deficits. Five out of 5 muscle strength in the arms and legs. Normal speech. Oriented to self, year, place, state. Assessment and Plan - Problem List (1) Intracranial hemorrhage Code(s): I62.9 - Nontraumatic intracranial hemorrhage, unspecified Status: Acute (2) Altered mental status Code(s): R41.82 - Altered mental status, unspecified Status: Acute (3) Tobacco abuse, in remission Code(s): F17.201 - Nicotine dependence, unspecified, in remission Status: Acute (4) Chronic anticoagulation Code(s): Z79.01 - long term care social worker (current) use of anticoagulants Status: Acute - Assessment and Plan Plan: Assessment: - Problem List (1) Intracranial hemorrhage Code(s): I62.9 - Nontraumatic intracranial hemorrhage, unspecified Status: Acute (2) Altered mental status Code(s): R41.82 - Altered mental status, unspecified Status: Acute (3) Tobacco abuse, in remission Code(s): F17.201 - Nicotine dependence, unspecified, in remission Status: Acute (4) Chronic anticoagulation Code(s): Z79.01 - retirement (current) use of anticoagulants Status: Acute Plan: NEURO: Subacute L Thalamic and basal ganglia hemorrhage Fall Restless leg syndrome Anxiety Depression MRI with 1.5 cm hemorrhage in left thalamus. There is edema with mass-effect, no mass lesion. Maintain systolic blood pressure less than 160. Hold Xarelto Received [facility] will follow up Continue ropinirole ER 6 mg p.o. (takes at 7 pm, pt to use own med because not on formulary) and 0.5 mg p.o. q12 (takes at bedtime) Continue gabapentin 600 mg p.o. 3 times daily, Zoloft 150 mg daily. Hold NOAC. RESP: COPD History of tobacco abuse On room air Continue Budesonide/formoterol 2 puffs inh bid. Albuterol prn. CV: Atrial fibrillation status post recent ablation 2weeks ago Chronic anticoagulation with warfarin Hyperlipidemia Continue amiodarone 200 mg daily Continue Lipitor 40 mg p.o. daily Cardene to maintain systolic blood pressure less than 160 Add oral HTN meds GI: GERD Bedside swallow evaluation and then advance diet as appropriate. FEN/RENAL: BPH Monitor electrolyte and replace as indicated per ICU electrolyte placement protocol Continue tamsulosin ID: Fever Isolated fever. ?secondary to ICH. Ua neg and cXR clear. f.u blood cultures. Watch off abx for now. HEME: Monitor CBC. ENDO: Euglycemic. PROPH: SCDs for DVT prophylaxis. Pharmacologic DVT prophylaxis contraindicated due to intracerebral hemorrhage. Protonix 40 mg IV daily for stress ulcer prophylaxis. ACCESS: Peripheral IV providing adequate access at this time FULL CODE Brother updated by Dr. Parker (John Sukumar [phone] and [phone] home) Overall impression: Hypertensive bleed, potentially unstable neurological status. Watch airway closely in [facility].
--- NOTE | 2018-02-21 18:57 | ECHRPT ---
Indication: CVA/TIA CONCLUSIONS Normal left ventricular systolic function with an ejection fraction of 55-60%. Mild concentric left ventricular hypertrophy. A patent foramen ovale is present with a gofz-mq-[id number] shunt demonstrated by color flow Doppler interrogation. Enhjh-sf-wukx mitral valve regurgitation. There is mild tricuspid valve regurgitation. BP: / HR: Rhythm: Sinus MEASUREMENTS (Male / Female) Normal Values Technical Quality:Fair 2D ECHO LV Diastolic Diameter PLAX 4.8 cm 4.2 - 5.9 / 3.9 - 5.3 cm LV Systolic Diameter PLAX 3.7 cm IVS Diastolic Thickness 1.1 cm 0.6 - 1.0 / 0.6 - 0.9 cm LVPW Diastolic Thickness 1.1 cm 0.6 - 1.0 / 0.6 - 0.9 cm LV Relative Wall Thickness 0.5 RV Internal Dim ED PLAX 3.4 cm LVOT Diameter 2.2 cm Aortic Root Diameter 3.8 cm LA Systolic Diameter LX 3.7 cm 3.0 - 4.0 / 2.7 - 3.8 cm M-MODE AV Cusp Separation MM 2.2 cm DOPPLER AV Peak Velocity 168.0 cm/s AV Peak Gradient 11.3 mmHg AV Mean Gradient 6.5 mmHg AV Velocity Time Integral 23.1 cm LVOT Peak Velocity 99.8 cm/s LVOT Peak Gradient 4.0 mmHg LVOT Velocity Time Integral 18.1 cm AV Area Cont Eq vti 3.0 cm AV Area Cont Eq pk 2.3 cm Mitral E Point Velocity 53.6 cm/s LV E' Lateral Velocity 11.7 cm/s Mitral E to LV E' Lateral Ratio 4.6 LV E' Septal Velocity 6.5 cm/s Mitral E to LV E' Septal Ratio 8.3 TR Peak Velocity 248.0 cm/s TR Peak Gradient 24.6 mmHg Right Atrial Pressure 10.0 mmHg Pulmonary Artery Systolic Pressu 34.6 mmHg Right Ventricular Systolic Press 34.6 mmHg PV Peak Velocity 57.9 cm/s PV Peak Gradient 1.3 mmHg FINDINGS LEFT VENTRICLE Normal left ventricular size. Mild concentric left ventricular hypertrophy. Normal left ventricular systolic function with an ejection fraction of 55-60%. RIGHT VENTRICLE Normal right ventricular size and systolic function. A pacemaker wire is noted. LEFT ATRIUM The left atrial size is normal. RIGHT ATRIUM The right atrium is not well visualized. ATRIAL SEPTUM A patent foramen ovale is present with a aeog-eu-vvivg shunt demonstrated by color flow Doppler interrogation. AORTA The aortic root and proximal ascending aorta are normal in size on limited imaging. MITRAL VALVE Structurally normal mitral valve. Nfcxl-[id number]-[id number] mitral valve regurgitation. No mitral valve stenosis. AORTIC VALVE Grossly normal aortic valve. No aortic valve stenosis or regurgitation. TRICUSPID VALVE Grossly normal. There is mild tricuspid valve regurgitation. The estimated pulmonary arterial pressure is 34.6 mmHg. PULMONARY VALVE Trivial pulmonary valve regurgitation. VESSELS The inferior vena cava is normal in size. PERICARDIUM Trace pericardial effusion. Jeffery Castro DO (Electronically Signed) Final Date:21 February 2018 18:56
--- NOTE | 2018-02-22 00:25 | ECG ---
Date Performed: 02/20/2018 Time Performed: 16:00:37 PTAGE: 77 years EKG: ATRIAL FIBRILLATION NONSPECIFIC ST & T-WAVE ABNORMALITY ABNORMAL ECG NO PREVIOUS TRACING DOCTOR: Jeffery Castro Interpretating Date/Time 02/22/2018 00:24:45
[2018-02-22] MEDS: niCARdipine Inj 25 MG in Sodium Chlor 0.9% Inj 240 ML IV.CONT PRN ×2 (06:26→07:59)
[2018-02-22] MEDS: Pantoprazole Inj 40 MG Vial IV.PUSH SCH (08:00)
[2018-02-22] MEDS: Sertraline 100 MG Tablet PO SCH (08:00)
[2018-02-22] MEDS: Gabapentin 300 MG Capsule PO SCH ×3 (08:00→18:15)
[2018-02-22] MEDS: Amiodarone 200 MG Tablet PO SCH (08:01)
[2018-02-22] MEDS: Senna/Docusate Sodium 8.6/50 MG Tablet PO SCH ×2 (08:01→20:16)
[2018-02-22] MEDS: Finasteride 5 MG Tablet PO SCH (08:01)
--- NOTE | 2018-02-22 09:04 | P.PNCC ---
Subjective Subjective Remarks/Hospital Course: History obtained by discussion with ED staff. Patient was able to answer some questions. He is accompanied by his who has moderately severe dementia and is not able to provide any history whatsoever. 77-year-old male with past medical history of hypertension, hyperlipidemia, atrial fibrillation status post recent ablation about 2 weeks ago on anticoagulation with Xarelto, prior tobacco abuse, restless leg syndrome who recently moved to [place] from [place] 1 week ago. He presents to [facility] emergency department after his friend was speaking with him on the phone and noticed that his mental status was not at baseline. EVAC was called. Patient states that over the last 2-3 days he has had some headache "on the top of his head" and decreased appetite. He states he has fallen 3 times. He denies nausea, vomiting, photophobia, neck pain, seizures, weight loss. + cough. CT brain report states: 1.6 cm spontaneously hyperdense lesion in the left striatum with associated mass effect or midline shift. This suggests focal hematoma or hemorrhagic tumor. Low density in the left cerebral peduncle which is nonspecific in appearance, could possibly represent extension of edema from the striatum or second lesion. Recommend further characterization of these abnormalities using MRI of the brain with and without contrast. Emergency department physician discussed these findings with Dr. Cazares who recommended blood pressure control with SBP <160 and admit to conventional mortgage underwriter. Pt states that his last dose of Xarelto was 02/19/18 in the morning. Not sure how reliable this information is. He has received [facility] in the emergency department. 02/21: Remains conversant, responsive. Moves 4 limbs, left side to command. Protects airway. MRI with 4 mm midline shift apparent. 02/22: Conversant today but he complains his memory is not what it used to be a few days ago. He moves 4 limbs to command and his speech is clear. He protects his airway. Objective Vital Signs / I&O: Vital Signs 02/21/18 10:00 02/21/18 12:00 02/21/18 14:00 Temperature 98 F Pulse Rate 92 H 88 86 Respiratory Rate 19 Blood Pressure 140/72 Pulse Oximetry 94 L 02/21/18 16:00 02/21/18 18:00 02/21/18 19:44 Temperature 97.8 F Pulse Rate 81 82 Respiratory Rate 16 Blood Pressure 143/70 H Pulse Oximetry 94 L 93 L 02/21/18 20:00 02/21/18 22:00 02/22/18 00:00 Temperature 98.1 F 98.1 F Pulse Rate 84 84 91 H Respiratory Rate 20 15 Blood Pressure 144/87 H 143/87 H Pulse Oximetry 94 L 97 02/22/18 02:00 02/22/18 04:00 02/22/18 06:00 Temperature 98.0 F Pulse Rate 91 H 91 H 97 H Respiratory Rate 14 Blood Pressure 144/78 H Pulse Oximetry 93 L 02/22/18 08:00 Temperature Pulse Rate 93 H Respiratory Rate Blood Pressure Pulse Oximetry Intake & Output 02/21/18 02/22/18 02/22/18 18:59 06:59 18:59 Intake Total 1230 / 1230 980 / 980 250 / 250 Output Total 750 / 750 500 / 500 Balance 480 / 480 480 / 480 250 / 250 Weight 118.9 kg Intake: IV 750 / 750 500 / 500 250 / 250 Cardene Inj 25 MG In NS Inj 240 750 / 750 500 / 500 250 / 250 ML @ 5 MG/HR 50 mls/hr IV.CONT TITRATE PRN Rx#:[id number] Oral 480 / 480 480 / 480 Output: Urine 750 / 750 500 / 500 Other: # Bowel Movements 0 0 Result Diagrams: 02/21/18 03:44 02/21/18 03:44 Objective Remarks: - Imaging Head MRI 02/20/18 00:00 CONCLUSION: 1. 1.5 cm hemorrhage in the left thalamus with signal characteristics characteristic of subacute or chronic blood. No enhancing mass seen. Surrounding cerebral edema does cause 4 mm midline shift towards the right and extends into the left cerebral peduncle. Chest X-Ray 02/20/18 17:07 CONCLUSION: The lungs are clear. No infiltrates seen. Head CT 02/20/18 17:21 CONCLUSION: 1. 1.6 cm spontaneously hyperdense lesion in the left striatum with associated mass effect or midline shift. This suggests focal hematoma or hemorrhagic tumor. 2. Low density in the left cerebral peduncle which is nonspecific in appearance , could possibly represent extension of edema from the striatum or second lesion. Recommend further characterization of these abnormalities using MRI of the brain with and without contrast. . EXAM: GENERAL: Elderly male in NAD. SKIN: Warm and dry. HEAD: Atraumatic. Normocephalic. EYES: Pupils equal and round 2 mm reactive. No scleral icterus. No injection or drainage. ENT: No nasal bleeding or discharge. Mucous membranes pink and moist. NECK: Trachea midline. CARDIOVASCULAR: Regular with frequent premature beat no murmurs rubs or gallops. No JVD. RESPIRATORY: No accessory muscle use. Clear to auscultation. Breath sounds equal bilaterally. GASTROINTESTINAL: Abdomen soft, non-tender, nondistended. Bowel sounds present. No guarding. MUSCULOSKELETAL: Extremities without clubbing, cyanosis, or edema. No obvious deformities. Ecchymosis and tenderness left 5th distal metatarsal and toe. No fracture on x-ray. NEUROLOGICAL: No obvious cranial nerve deficits. Five out of 5 muscle strength in the arms and legs. Speech clear. Assessment and Plan - Problem List (1) Intracranial hemorrhage Code(s): I62.9 - Nontraumatic intracranial hemorrhage, unspecified Status: Acute (2) Altered mental status Code(s): R41.82 - Altered mental status, unspecified Status: Acute (3) Tobacco abuse, in remission Code(s): F17.201 - Nicotine dependence, unspecified, in remission Status: Acute (4) Chronic anticoagulation Code(s): Z79.01 - alf (current) use of anticoagulants Status: Acute - Assessment and Plan Plan: Assessment: - Problem List (1) Intracranial hemorrhage Code(s): I62.9 - Nontraumatic intracranial hemorrhage, unspecified Status: Acute (2) Altered mental status Code(s): R41.82 - Altered mental status, unspecified Status: Acute (3) Tobacco abuse, in remission Code(s): F17.201 - Nicotine dependence, unspecified, in remission Status: Acute (4) Chronic anticoagulation Code(s): Z79.01 - alf (current) use of anticoagulants Status: Acute Plan: NEURO: Subacute L Thalamic and basal ganglia hemorrhage Fall Restless leg syndrome Anxiety Depression MRI with 1.5 cm hemorrhage in left thalamus. There is edema with mass-effect, no mass lesion. Maintain systolic blood pressure less than 160. Hold Xarelto Received K [facility] will follow up Continue ropinirole ER 6 mg p.o. (takes at 7 pm, pt to use own med because not on formulary) and 0.5 mg p.o. q12 (takes at bedtime) Continue gabapentin 600 mg p.o. 3 times daily, Zoloft 150 mg daily. Hold NOAC. RESP: COPD History of tobacco abuse On room air Continue Budesonide/formoterol 2 puffs inh bid. Albuterol prn. CV: Atrial fibrillation status post recent ablation 2weeks ago Chronic anticoagulation with warfarin Hyperlipidemia Continue amiodarone 200 mg daily Continue Lipitor 40 mg p.o. daily Cardene to maintain systolic blood pressure less than 160 Add oral HTN meds GI: GERD Bedside swallow evaluation and then advance diet as appropriate. FEN/RENAL: BPH Monitor electrolyte and replace as indicated per ICU electrolyte placement protocol Continue tamsulosin ID: Fever Isolated fever. ?secondary to ICH. Ua neg and cXR clear. f.u blood cultures. Watch off abx for now. HEME: Monitor CBC. ENDO: Euglycemic. PROPH: SCDs for DVT prophylaxis. Pharmacologic DVT prophylaxis contraindicated due to intracerebral hemorrhage. Protonix 40 mg IV daily for stress ulcer prophylaxis. ACCESS: Peripheral IV providing adequate access at this time FULL CODE Brother updated by Dr. Parker (John Patino [phone] and [phone] [place]) Overall impression: Hypertensive bleed, potentially unstable neurological status. Watch airway closely in [facility]. Add additional oral antihypertensive and wean off Cardene drip.
--- NOTE | 2018-02-22 09:20 | P.PNNS ---
Subjective Interval history: History of Present Illness: 77-year-old male with past medical history of hypertension, hyperlipidemia, atrial fibrillation status post recent ablation about 2 weeks ago on anticoagulation with Xarelto, prior tobacco abuse, restless leg syndrome who recently moved to [place] from [place] 1 week ago. He presents to [facility] emergency department after his friend was speaking with him on the phone and noticed that his mental status was not at baseline. EVAC was called. Patient states that over the last 2-3 days he has had some headache "on the top of his head" and decreased appetite. He states he has fallen 3 times. He denies nausea, vomiting, photophobia, neck pain, seizures, weight loss. Brother is at bedside and relates that he is more confused although since last night he has improved. He was hypertensive in the emergency room and has been on Cardene drip overnight. CT scan of the head as well as subsequent MRI scan of the brain with contrast reveals a 1.6 cm left basal ganglia hemorrhage with some surrounding edema but no underlying mass. 02/22/18: Pt awake and alert. Expressive aphasia but able to answer questions appropriately. He moves all 4 extremities with a right hemiparesis. He is able to raise his hand above shoulder level and left his right leg off the bed but weaker on right side than left. He has right facial paresis that corrects with forced smile. <Andry Malik - Last Filed: 02/22/18 09:12> Physical Exam Vital signs: Vital Signs 02/21/18 10:00 02/21/18 12:00 02/21/18 14:00 Temperature 98 F Pulse Rate 92 H 88 86 Respiratory Rate 19 Blood Pressure 140/72 Pulse Oximetry 94 L 02/21/18 16:00 02/21/18 18:00 02/21/18 19:44 Temperature 97.8 F Pulse Rate 81 82 Respiratory Rate 16 Blood Pressure 143/70 H Pulse Oximetry 94 L 93 L 02/21/18 20:00 02/21/18 22:00 02/22/18 00:00 Temperature 98.1 F 98.1 F Pulse Rate 84 84 91 H Respiratory Rate 20 15 Blood Pressure 144/87 H 143/87 H Pulse Oximetry 94 L 97 02/22/18 02:00 02/22/18 04:00 02/22/18 06:00 Temperature 98.0 F Pulse Rate 91 H 91 H 97 H Respiratory Rate 14 Blood Pressure 144/78 H Pulse Oximetry 93 L 02/22/18 08:00 Temperature Pulse Rate 93 H Respiratory Rate Blood Pressure Pulse Oximetry Intake & Output 02/21/18 02/22/18 02/22/18 18:59 06:59 18:59 Intake Total 1230 / 1230 980 / 980 250 / 250 Output Total 750 / 750 500 / 500 Balance 480 / 480 480 / 480 250 / 250 Weight 118.9 kg Intake: IV 750 / 750 500 / 500 250 / 250 Cardene Inj 25 MG In NS Inj 240 750 / 750 500 / 500 250 / 250 ML @ 5 MG/HR 50 mls/hr IV.CONT TITRATE PRN Rx#:[id number] Oral 480 / 480 480 / 480 Output: Urine 750 / 750 500 / 500 Other: # Bowel Movements 0 0 - Constitutional no acute distress, obese - Routine HEENT Exam Head: Present: normocephalic, atraumatic Eye: Present: EOMI, PERRL. Absent: conjunctival icterus ENT: Present: mucous membranes moist, oropharynx clear - Routine Neck Exam Present: trachea midline - Routine Respiratory Exam Present: CTA bilaterally. Absent: respiratory distress, rhonchi, wheezes - Routine Cardiovascular Exam Present: S1, S2, irregularly irregular. Absent: murmur - Routine Abdominal Exam Present: soft, normoactive bowel sounds. Absent: tenderness, distended - Routine Extremities Exam Absent: cyanosis - Routine Skin Exam Absent: cyanosis, erythema - Routine Neurological Exam Present: alert, motor deficit (right hemiparesis.), moving all extremities ( with right hemiparesis.), facial asymmetry (Right facial paresis improves with forced smile.). Absent: altered mental status, normal speech (Expressive aphasia.) - Routine Psychiatric Exam Present: normal affect, cooperative <Andry Malik - Last Filed: 02/22/18 09:12> Vital signs: Vital Signs 02/21/18 14:00 02/21/18 16:00 02/21/18 18:00 Temperature 97.8 F Pulse Rate 86 81 82 Respiratory Rate 16 Blood Pressure 143/70 H Pulse Oximetry 94 L 02/21/18 19:44 02/21/18 20:00 02/21/18 22:00 Temperature 98.1 F Pulse Rate 84 84 Respiratory Rate 20 Blood Pressure 144/87 H Pulse Oximetry 93 L 94 L 02/22/18 00:00 02/22/18 02:00 02/22/18 04:00 Temperature 98.1 F 98.0 F Pulse Rate 91 H 91 H 91 H Respiratory Rate 15 14 Blood Pressure 143/87 H 144/78 H Pulse Oximetry 97 93 L 02/22/18 06:00 02/22/18 08:00 Temperature Pulse Rate 97 H 93 H Respiratory Rate Blood Pressure Pulse Oximetry Intake & Output 02/21/18 02/22/18 02/22/18 18:59 06:59 18:59 Intake Total 1230 / 1230 980 / 980 250 / 250 Output Total 750 / 750 500 / 500 Balance 480 / 480 480 / 480 250 / 250 Weight 118.9 kg Intake: IV 750 / 750 500 / 500 250 / 250 Cardene Inj 25 MG In NS Inj 240 750 / 750 500 / 500 250 / 250 ML @ 5 MG/HR 50 mls/hr IV.CONT TITRATE PRN Rx#:[id number] Oral 480 / 480 480 / 480 Output: Urine 750 / 750 500 / 500 Other: # Bowel Movements 0 0 <Rahul Cazares - Last Filed: 02/22/18 12:02> Assessment and Plan - Assessment (1) Intracranial hemorrhage Code(s): I62.9 - Nontraumatic intracranial hemorrhage, unspecified Status: Acute (2) Altered mental status Code(s): R41.82 - Altered mental status, unspecified Status: Acute (3) Medication induced coagulopathy Code(s): D68.9 - Coagulation defect, unspecified; T50.905A - Adverse effect of unspecified drugs, medicaments and biological substances, initial encounter Status: Acute (4) Basal ganglia hemorrhage Code(s): I61.0 - Nontraumatic intracerebral hemorrhage in hemisphere, subcortical Status: Acute (5) Hypertension Code(s): I10 - Essential (primary) hypertension Status: Acute Qualifiers: Hypertension type: essential hypertension Qualified Code(s): I10 - Essential (primary) hypertension (6) H/O splenectomy Code(s): Z90.81 - Acquired absence of spleen Status: Acute (7) History of bilateral knee arthroplasty Code(s): Z96.653 - Presence of artificial knee joint, bilateral Status: Acute (8) H/O sinus surgery Code(s): Z98.890 - Other specified postprocedural states Status: Acute - Plan Continue with blood pressure control. Pt on Cardene drip. Wean to oral medication as tolerated. Continue with PT/OT/Speech therapy Continue with DVT prophylaxis Continue with GI prophylaxis. <Andry Malik - Last Filed: 02/22/18 09:12> - Assessment (1) Basal ganglia hemorrhage Code(s): I61.0 - Nontraumatic intracerebral hemorrhage in hemisphere, subcortical Status: Acute (2) Hypertension Code(s): I10 - Essential (primary) hypertension Status: Acute Qualifiers: Hypertension type: essential hypertension Qualified Code(s): I10 - Essential (primary) hypertension (3) Intracranial hemorrhage Code(s): I62.9 - Nontraumatic intracranial hemorrhage, unspecified Status: Acute (4) Medication induced coagulopathy Code(s): D68.9 - Coagulation defect, unspecified; T50.905A - Adverse effect of unspecified drugs, medicaments and biological substances, initial encounter Status: Acute (5) Atrial fibrillation Code(s): I48.91 - Unspecified atrial fibrillation Status: Acute - Attending Attestation The exam, history, and the medical decision-making described in the above note were completed with the assistance of the mid-level provider. I reviewed and agree with the findings presented. I attest that I had a [id number] encounter with the patient on the same day, and personally performed and documented my assessment and findings in the medical record. <Rahul Cazares - Last Filed: 02/22/18 12:02>
[2018-02-22] MEDS: Chlorhexidine Gluconate 2% 1 Pack (2 Cloths) TOPICAL SCH (11:29)
[2018-02-22] MEDS: Budesonide-Formoterol 160/4.5 MCG 6 GM Inhaler INH SCH ×2 (11:30→20:18)
[2018-02-22] MEDS: Lisinopril 10 MG Tablet PO SCH ×2 (12:00→20:16)
[2018-02-22] MEDS: Metoprolol Tartrate 25 MG Tablet PO SCH ×2 (12:00→20:16)
[2018-02-23 06:24] LABS: Calcium 8.7 mg/dL (8.5-10.1); Carbon Dioxide 26.4 meq/L (21.0-32.0); Potassium 3.9 meq/L (3.5-5.1)
--- NOTE | 2018-02-23 07:54 | P.PNCC ---
Subjective Subjective Remarks/Hospital Course: History obtained by discussion with ED staff. Patient was able to answer some questions. He is accompanied by his who has moderately severe dementia and is not able to provide any history whatsoever. 77-year-old male with past medical history of hypertension, hyperlipidemia, atrial fibrillation status post recent ablation about 2 weeks ago on anticoagulation with Xarelto, prior tobacco abuse, restless leg syndrome who recently moved to [place] from [place] 1 week ago. He presents to [facility] emergency department after his friend was speaking with him on the phone and noticed that his mental status was not at baseline. EVAC was called. Patient states that over the last 2-3 days he has had some headache "on the top of his head" and decreased appetite. He states he has fallen 3 times. He denies nausea, vomiting, photophobia, neck pain, seizures, weight loss. + cough. CT brain report states: 1.6 cm spontaneously hyperdense lesion in the left striatum with associated mass effect or midline shift. This suggests focal hematoma or hemorrhagic tumor. Low density in the left cerebral peduncle which is nonspecific in appearance, could possibly represent extension of edema from the striatum or second lesion. Recommend further characterization of these abnormalities using MRI of the brain with and without contrast. Emergency department physician discussed these findings with Dr. Cazares who recommended blood pressure control with SBP <160 and admit to medical imaging director. Pt states that his last dose of Xarelto was 02/19/18 in the morning. Not sure how reliable this information is. He has received [facility] in the emergency department. 02/21: Remains conversant, responsive. Moves 4 limbs, left side to command. Protects airway. MRI with 4 mm midline shift apparent. 02/22: Conversant today but he complains his memory is not what it used to be a few days ago. He moves 4 limbs to command and his speech is clear. He protects his airway. 02/23: Blood pressure well controlled on oral medications now, he has been off Cardene infusion for 24 hours. Moves 4 limbs though moderately weaker on the right. Speech is clear but he has trouble finding words and thoughts from the past. Protects airway well swallows normally. Objective Vital Signs / I&O: Vital Signs 02/22/18 08:00 02/22/18 10:00 02/22/18 12:00 Temperature 96.5 F L 98.4 F Pulse Rate 90 112 H 84 Respiratory Rate 22 22 Blood Pressure 146/88 H 149/88 H Pulse Oximetry 94 L 94 L 02/22/18 14:00 02/22/18 16:00 02/22/18 18:00 Temperature 98.2 F Pulse Rate 90 72 72 Respiratory Rate 22 Blood Pressure 137/94 H Pulse Oximetry 95 02/22/18 20:00 02/22/18 22:00 02/23/18 00:00 Temperature 98.1 F 98.0 F Pulse Rate 93 H 93 H 67 Respiratory Rate 20 18 Blood Pressure 135/77 119/70 Pulse Oximetry 93 L 96 02/23/18 02:00 02/23/18 04:00 02/23/18 06:00 Temperature 98.1 F Pulse Rate 67 67 67 Respiratory Rate 21 Blood Pressure 118/75 Pulse Oximetry 98 Intake & Output 02/22/18 02/23/18 02/23/18 18:59 06:59 18:59 Intake Total 730 / 730 480 / 480 Output Total 400 / 400 550 / 550 Balance 330 / 330 -70 / -70 Weight 123.6 kg Intake: IV 250 / 250 Cardene Inj 25 MG In NS Inj 240 250 / 250 ML @ 5 MG/HR 50 mls/hr IV.CONT TITRATE PRN Rx#:[id number] Oral 480 / 480 480 / 480 Output: Urine 400 / 400 550 / 550 Other: Date of Last Bowel Movement 02/22/18 02/22/18 # Bowel Movements 0 Result Diagrams: 02/21/18 03:44 02/23/18 04:56 Objective Remarks: - Imaging Head MRI 02/20/18 00:00 CONCLUSION: 1. 1.5 cm hemorrhage in the left thalamus with signal characteristics characteristic of subacute or chronic blood. No enhancing mass seen. Surrounding cerebral edema does cause 4 mm midline shift towards the right and extends into the left cerebral peduncle. Chest X-Ray 02/20/18 17:07 CONCLUSION: The lungs are clear. No infiltrates seen. Head CT 02/20/18 17:21 CONCLUSION: 1. 1.6 cm spontaneously hyperdense lesion in the left striatum with associated mass effect or midline shift. This suggests focal hematoma or hemorrhagic tumor. 2. Low density in the left cerebral peduncle which is nonspecific in appearance , could possibly represent extension of edema from the striatum or second lesion. Recommend further characterization of these abnormalities using MRI of the brain with and without contrast. . EXAM: GENERAL: Elderly male in NAD. SKIN: Warm and dry. HEAD: Atraumatic. Normocephalic. EYES: Pupils equal and round 2 mm reactive. No scleral icterus. No injection or drainage. ENT: No nasal bleeding or discharge. Mucous membranes pink and moist. NECK: Trachea midline. CARDIOVASCULAR: Irreg Irreg.No JVD. RESPIRATORY: No accessory muscle use. Clear to auscultation. Breath sounds equal bilaterally. GASTROINTESTINAL: Abdomen soft, non-tender, nondistended. Bowel sounds present. No guarding. MUSCULOSKELETAL: Extremities without clubbing, cyanosis, or edema. No obvious deformities. Ecchymosis and tenderness left 5th distal metatarsal and toe. No fracture on x-ray. NEUROLOGICAL: No obvious cranial nerve deficits. Five out of 5 muscle strength in the arms and legs but tends to be less vigorous using his right upper and lower extremity.. Speech clear but occasional trouble finding words. Assessment and Plan - Problem List (1) Intracranial hemorrhage Code(s): I62.9 - Nontraumatic intracranial hemorrhage, unspecified Status: Acute (2) Altered mental status Code(s): R41.82 - Altered mental status, unspecified Status: Acute (3) Tobacco abuse, in remission Code(s): F17.201 - Nicotine dependence, unspecified, in remission Status: Acute (4) Chronic anticoagulation Code(s): Z79.01 - snf (current) use of anticoagulants Status: Acute - Assessment and Plan Plan: Assessment: - Problem List (1) Intracranial hemorrhage Code(s): I62.9 - Nontraumatic intracranial hemorrhage, unspecified Status: Acute (2) Altered mental status Code(s): R41.82 - Altered mental status, unspecified Status: Acute (3) Tobacco abuse, in remission Code(s): F17.201 - Nicotine dependence, unspecified, in remission Status: Acute (4) Chronic anticoagulation Code(s): Z79.01 - snf (current) use of anticoagulants Status: Acute Plan: NEURO: Subacute L Thalamic and basal ganglia hemorrhage Fall Restless leg syndrome Anxiety Depression MRI with 1.5 cm hemorrhage in left thalamus. There is edema with mass-effect, no mass lesion. Maintain systolic blood pressure less than 160. Hold Xarelto Received [facility] Neurosurgery will follow up Continue ropinirole ER 6 mg p.o. (takes at 7 pm, pt to use own med because not on formulary) and 0.5 mg p.o. q12 (takes at bedtime) Continue gabapentin 600 mg p.o. 3 times daily, Zoloft 150 mg daily. Hold NOAC. RESP: COPD History of tobacco abuse On room air Continue Budesonide/formoterol 2 puffs inh bid. Albuterol prn. CV: Atrial fibrillation status post recent ablation 2weeks ago Chronic anticoagulation with warfarin Hyperlipidemia Continue amiodarone 200 mg daily Continue Lipitor 40 mg p.o. daily Cardene to maintain systolic blood pressure less than 160 Add oral HTN meds GI: GERD Bedside swallow evaluation past and advance diet as appropriate. FEN/RENAL: BPH Monitor electrolyte and replace as indicated per ICU electrolyte placement protocol Continue tamsulosin ID: Fever Isolated fever. ?secondary to ICH. Ua neg and cXR clear. f.u blood cultures. Watch off abx for now. HEME: Monitor CBC. ENDO: Euglycemic. PROPH: SCDs for DVT prophylaxis. Pharmacologic DVT prophylaxis contraindicated due to intracerebral hemorrhage. Protonix 40 mg IV daily for stress ulcer prophylaxis. ACCESS: Peripheral IV providing adequate access at this time FULL CODE Brother updated by Dr. Parker (John Patino [phone] and [phone] [place]) Overall impression: Hypertensive bleed. Added additional oral antihypertensive and weaned off Cardene drip.
[2018-02-23] MEDS: Senna/Docusate Sodium 8.6/50 MG Tablet PO SCH ×2 (08:30→20:14)
[2018-02-23] MEDS: Sertraline 100 MG Tablet PO SCH (08:31)
[2018-02-23] MEDS: Gabapentin 300 MG Capsule PO SCH ×3 (08:31→17:21)
[2018-02-23] MEDS: Amiodarone 200 MG Tablet PO SCH (08:31)
[2018-02-23] MEDS: Metoprolol Tartrate 25 MG Tablet PO SCH ×2 (08:31→20:14)
[2018-02-23] MEDS: Lisinopril 10 MG Tablet PO SCH ×2 (08:31→20:14)
[2018-02-23] MEDS: Finasteride 5 MG Tablet PO SCH (08:31)
--- NOTE | 2018-02-23 09:10 | P.PNNS ---
Subjective Interval history: History of Present Illness: 77-year-old male with past medical history of hypertension, hyperlipidemia, atrial fibrillation status post recent ablation about 2 weeks ago on anticoagulation with Xarelto, prior tobacco abuse, restless leg syndrome who recently moved to [place] from [place] 1 week ago. He presents to [facility] emergency department after his friend was speaking with him on the phone and noticed that his mental status was not at baseline. EVAC was called. Patient states that over the last 2-3 days he has had some headache "on the top of his head" and decreased appetite. He states he has fallen 3 times. He denies nausea, vomiting, photophobia, neck pain, seizures, weight loss. Brother is at bedside and relates that he is more confused although since last night he has improved. He was hypertensive in the emergency room and has been on Cardene drip overnight. CT scan of the head as well as subsequent MRI scan of the brain with contrast reveals a 1.6 cm left basal ganglia hemorrhage with some surrounding edema but no underlying mass. 02/22/18: Pt awake and alert. Expressive aphasia but able to answer questions appropriately. He moves all 4 extremities with a right hemiparesis. He is able to raise his hand above shoulder level and left his right leg off the bed but weaker on right side than left. He has right facial paresis that corrects with forced smile. 02/23/18: Pt awakens to voice. Denies headache. Pt states he is doing well. Moderate expressive aphasia but improving since admission. Right hemiparesis improving. Off Cardene drip since yesterday. <Andry Malik - Last Filed: 02/23/18 09:10> Physical Exam Vital signs: Vital Signs 02/22/18 10:00 02/22/18 12:00 02/22/18 14:00 Temperature 98.4 F Pulse Rate 112 H 84 90 Respiratory Rate 22 Blood Pressure 149/88 H Pulse Oximetry 94 L 02/22/18 16:00 02/22/18 18:00 02/22/18 20:00 Temperature 98.2 F 98.1 F Pulse Rate 72 72 93 H Respiratory Rate 22 20 Blood Pressure 137/94 H 135/77 Pulse Oximetry 95 93 L 02/22/18 22:00 02/23/18 00:00 02/23/18 02:00 Temperature 98.0 F Pulse Rate 93 H 67 67 Respiratory Rate 18 Blood Pressure 119/70 Pulse Oximetry 96 02/23/18 04:00 02/23/18 06:00 Temperature 98.1 F Pulse Rate 67 67 Respiratory Rate 21 Blood Pressure 118/75 Pulse Oximetry 98 Intake & Output 02/22/18 02/23/18 02/23/18 18:59 06:59 18:59 Intake Total 730 / 730 480 / 480 Output Total 400 / 400 550 / 550 Balance 330 / 330 -70 / -70 Weight 123.6 kg Intake: IV 250 / 250 Cardene Inj 25 MG In NS Inj 240 250 / 250 ML @ 5 MG/HR 50 mls/hr IV.CONT TITRATE PRN Rx#:[id number] Oral 480 / 480 480 / 480 Output: Urine 400 / 400 550 / 550 Other: Date of Last Bowel Movement 02/22/18 02/22/18 # Bowel Movements 0 - Constitutional no acute distress, obese, cooperative - Routine HEENT Exam Head: Present: normocephalic, atraumatic Eye: Present: PERRL. Absent: conjunctival icterus ENT: Present: oropharynx clear - Routine Respiratory Exam Present: CTA bilaterally. Absent: rales, respiratory distress, rhonchi, wheezes - Routine Cardiovascular Exam Present: RRR, S1, S2. Absent: murmur - Routine Abdominal Exam Present: soft, normoactive bowel sounds. Absent: tenderness, distended, guarding - Routine Skin Exam Present: intact. Absent: cyanosis, erythema - Routine Neurological Exam Present: alert, oriented X3, motor deficit (Mild right hemiparesis and right facial paresis.), moving all extremities, facial asymmetry (mild right facial paresis improves with forced smile.). Absent: altered mental status, normal speech (moderate expressive aphasia.) - Routine Psychiatric Exam Present: normal affect. Absent: cooperative <Andry Malik - Last Filed: 02/23/18 09:10> Vital signs: Vital Signs 02/22/18 18:00 02/22/18 20:00 02/22/18 22:00 Temperature 98.1 F Pulse Rate 72 93 H 93 H Respiratory Rate 20 Blood Pressure 135/77 Pulse Oximetry 93 L 02/23/18 00:00 02/23/18 02:00 02/23/18 04:00 Temperature 98.0 F 98.1 F Pulse Rate 67 67 67 Respiratory Rate 18 21 Blood Pressure 119/70 118/75 Pulse Oximetry 96 98 02/23/18 06:00 02/23/18 08:00 02/23/18 10:00 Temperature 98.4 F Pulse Rate 67 68 74 Respiratory Rate 13 Blood Pressure 146/96 H Pulse Oximetry 98 02/23/18 12:00 Temperature 97.7 F Pulse Rate 64 Respiratory Rate 12 Blood Pressure 125/82 Pulse Oximetry 95 Intake & Output 02/22/18 02/23/18 02/23/18 18:59 06:59 18:59 Intake Total 730 / 730 480 / 480 Output Total 400 / 400 550 / 550 Balance 330 / 330 -70 / -70 Weight 123.6 kg Intake: IV 250 / 250 Cardene Inj 25 MG In NS Inj 240 250 / 250 ML @ 5 MG/HR 50 mls/hr IV.CONT TITRATE PRN Rx#:[id number] Oral 480 / 480 480 / 480 Output: Urine 400 / 400 550 / 550 Other: Date of Last Bowel Movement 02/22/18 02/22/18 02/23/18 # Bowel Movements 0 <Rahul Cazares - Last Filed: 02/23/18 16:44> Assessment and Plan - Assessment (1) Intracranial hemorrhage Code(s): I62.9 - Nontraumatic intracranial hemorrhage, unspecified Status: Acute (2) Altered mental status Code(s): R41.82 - Altered mental status, unspecified Status: Acute (3) Medication induced coagulopathy Code(s): D68.9 - Coagulation defect, unspecified; T50.905A - Adverse effect of unspecified drugs, medicaments and biological substances, initial encounter Status: Acute (4) Basal ganglia hemorrhage Code(s): I61.0 - Nontraumatic intracerebral hemorrhage in hemisphere, subcortical Status: Acute (5) Hypertension Code(s): I10 - Essential (primary) hypertension Status: Acute Qualifiers: Hypertension type: essential hypertension Qualified Code(s): I10 - Essential (primary) hypertension (6) H/O splenectomy Code(s): Z90.81 - Acquired absence of spleen Status: Acute (7) History of bilateral knee arthroplasty Code(s): Z96.653 - Presence of artificial knee joint, bilateral Status: Acute (8) H/O sinus surgery Code(s): Z98.890 - Other specified postprocedural states Status: Acute - Plan Continue with blood pressure control. Pt off Cardene drip reportedly since yesterday. Wean to oral medication as tolerated. Continue with PT/OT/Speech therapy Continue with DVT prophylaxis Continue with GI prophylaxis. Continue with medical management. <Andry Malik - Last Filed: 02/23/18 09:10> - Assessment (1) Basal ganglia hemorrhage Code(s): I61.0 - Nontraumatic intracerebral hemorrhage in hemisphere, subcortical Status: Acute (2) Hypertension Code(s): I10 - Essential (primary) hypertension Status: Acute Qualifiers: Hypertension type: essential hypertension Qualified Code(s): I10 - Essential (primary) hypertension (3) Intracranial hemorrhage Code(s): I62.9 - Nontraumatic intracranial hemorrhage, unspecified Status: Acute (4) Medication induced coagulopathy Code(s): D68.9 - Coagulation defect, unspecified; T50.905A - Adverse effect of unspecified drugs, medicaments and biological substances, initial encounter Status: Acute (5) Atrial fibrillation Code(s): I48.91 - Unspecified atrial fibrillation Status: Acute - Attending Attestation The exam, history, and the medical decision-making described in the above note were completed with the assistance of the mid-level provider. I reviewed and agree with the findings presented. I attest that I had a [id number] encounter with the patient on the same day, and personally performed and documented my assessment and findings in the medical record. <Rahul Cazares - Last Filed: 02/23/18 16:44>
[2018-02-23] MEDS: Budesonide-Formoterol 160/4.5 MCG 6 GM Inhaler INH SCH ×2 (09:30→20:14)
[2018-02-24 06:52] LABS: Baso % (Auto) 0.2 % (0.0-2.0); Eos # (Auto) 0.4 th/mm3 (0.0-0.4); Eos % (Auto) 4.2 % (0.0-4.0); Hematocrit 37.9 % (39.0-51.0); Hemoglobin 12.8 gm/dL (13.0-17.0); Lymph % (Auto) 19.2 % (9.0-44.0); Mean Corpuscular HGB Conc 33.7 % (32.0-36.0); Mean Corpuscular Hemoglobin 32.8 pg (27.0-34.0); Mean Corpuscular Volume 97.3 fL (80.0-100.0); Mean Platelet Volume 10.2 fL (7.0-11.0); Mono # (Auto) 1.2 th/mm3 (0.0-0.9); Mono % (Auto) 11.6 % (0.0-8.0); Neut # (Auto) 6.7 th/mm3 (1.8-7.7); Neut % (Auto) 64.8 % (16.0-70.0); Platelet Count 170 th/mm3 (150-450); Red Cell Distribution Width 14.8 % (11.6-17.2); White Blood Count 10.3 th/mm3 (4.0-11.0)
[2018-02-24 07:20] LABS: Albumin 2.9 g/dL (3.4-5.0); Anion Gap 7 meq/L (5-15); Aspartate Aminotransferase 22 U/L (15-37); Blood Urea Nitrogen 25 mg/dL (7-18); Carbon Dioxide 26.8 meq/L (21.0-32.0); Chloride 112 meq/L (98-107); Cholesterol 103 mg/dL (120-200); Glomerular Filtration Rate 60 mL/min (>89); Glucose,Random 92 mg/dL (74-106); Magnesium 1.9 mg/dL (1.5-2.5); Potassium 3.7 meq/L (3.5-5.1); Sodium 146 meq/L (136-145); Triglycerides 55 mg/dL (42-150)
[2018-02-24 07:44] LABS: Alanine Aminotransferase 30 U/L (12-78); Alkaline Phosphatase 65 U/L (45-117); Chol/HDL Ratio 2.68 Ratio; Free T4 (Free Thyroxine) 1.13 ng/dL (0.76-1.46); HDL Cholesterol 38.4 mg/dL (40.0-60.0); LDL Cholesterol,Calculated 54 mg/dL (0-99); Phosphorus 3.3 mg/dL (2.5-4.9); Thyroid Stimulating Hormone 0.993 uIU/mL (0.358-3.740); Total Protein 5.7 g/dL (6.4-8.2)
[2018-02-24] MEDS: Gabapentin 300 MG Capsule PO SCH ×3 (08:07→17:13)
[2018-02-24] MEDS: Lisinopril 10 MG Tablet PO SCH ×2 (08:07→21:25)
[2018-02-24] MEDS: Metoprolol Tartrate 25 MG Tablet PO SCH ×2 (08:08→21:25)
[2018-02-24] MEDS: Finasteride 5 MG Tablet PO SCH (08:08)
[2018-02-24] MEDS: Amiodarone 200 MG Tablet PO SCH (08:08)
[2018-02-24] MEDS: Senna/Docusate Sodium 8.6/50 MG Tablet PO SCH ×2 (08:08→21:26)
[2018-02-24] MEDS: Sertraline 100 MG Tablet PO SCH (08:08)
[2018-02-24] MEDS: Budesonide-Formoterol 160/4.5 MCG 6 GM Inhaler INH SCH ×2 (08:09→21:29)
[2018-02-24 09:38] LABS: Hemoglobin A1c 5.5 % (4.3-6.0)
--- NOTE | 2018-02-24 09:42 | P.PNNS ---
Subjective Interval history: History of Present Illness: 77-year-old male with past medical history of hypertension, hyperlipidemia, atrial fibrillation status post recent ablation about 2 weeks ago on anticoagulation with Xarelto, prior tobacco abuse, restless leg syndrome who recently moved to [place] from [place] 1 week ago. He presents to [facility] emergency department after his friend was speaking with him on the phone and noticed that his mental status was not at baseline. [facility] was called. Patient states that over the last 2-3 days he has had some headache "on the top of his head" and decreased appetite. He states he has fallen 3 times. He denies nausea, vomiting, photophobia, neck pain, seizures, weight loss. Brother is at bedside and relates that he is more confused although since last night he has improved. He was hypertensive in the emergency room and has been on Cardene drip overnight. CT scan of the head as well as subsequent MRI scan of the brain with contrast reveals a 1.6 cm left basal ganglia hemorrhage with some surrounding edema but no underlying mass. 02/22/18: Pt awake and alert. Expressive aphasia but able to answer questions appropriately. He moves all 4 extremities with a right hemiparesis. He is able to raise his hand above shoulder level and left his right leg off the bed but weaker on right side than left. He has right facial paresis that corrects with forced smile. 02/23/18: Pt awakens to voice. Denies headache. Pt states he is doing well. Moderate expressive aphasia but improving since admission. Right hemiparesis improving. Off Cardene drip since yesterday. 02/24/18: Pt awake and alert. Denies headache or n/v. Pt reportedly had one dose of Labetalol yesterday but doing well since. <Andry Malik - Last Filed: 02/24/18 09:42> Physical Exam Vital signs: Vital Signs 02/23/18 10:00 02/23/18 12:00 02/23/18 14:00 Temperature 97.7 F Pulse Rate 74 64 68 Respiratory Rate 12 Blood Pressure 125/82 Pulse Oximetry 95 02/23/18 16:00 02/23/18 18:00 02/23/18 20:00 Temperature 97.9 F 98.6 F Pulse Rate 72 76 75 Respiratory Rate 18 15 Blood Pressure 166/86 H 135/80 Pulse Oximetry 94 L 93 L 02/23/18 22:00 02/24/18 00:00 02/24/18 02:00 Temperature 98.7 F Pulse Rate 70 70 73 Respiratory Rate 20 Blood Pressure 133/73 Pulse Oximetry 95 02/24/18 04:00 02/24/18 06:00 02/24/18 07:44 Temperature 98.5 F Pulse Rate 73 73 Respiratory Rate 16 Blood Pressure 144/91 H Pulse Oximetry 95 96 02/24/18 08:00 Temperature 99.1 F Pulse Rate 100 H Respiratory Rate 14 Blood Pressure 150/70 H Pulse Oximetry 100 Intake & Output 02/23/18 02/24/18 02/24/18 18:59 06:59 18:59 Intake Total 960 / 960 Output Total 1000 / 1000 450 / 450 Balance -40 / -40 -450 / -450 Weight 122.3 kg Intake: Oral 960 / 960 Output: Urine 1000 / 1000 450 / 450 Other: # Voids 22 Date of Last Bowel Movement 02/23/18 02/23/18 02/23/18 # Bowel Movements 1 - Constitutional no acute distress, obese, cooperative - Routine HEENT Exam Head: Present: normocephalic, atraumatic Eye: Present: PERRL. Absent: conjunctival icterus ENT: Present: oropharynx clear - Routine Respiratory Exam Present: CTA bilaterally. Absent: respiratory distress, rhonchi, wheezes - Routine Cardiovascular Exam Present: RRR, S1, S2. Absent: murmur - Routine Abdominal Exam Present: soft, normoactive bowel sounds. Absent: tenderness, distended - Routine Skin Exam Present: intact. Absent: cyanosis, erythema - Routine Neurological Exam Present: alert, motor deficit (Mild right hemiparesis. Improving.), moving all extremities. Absent: altered mental status, normal speech (expressive aphasia with some improvement.) <Andry Malik - Last Filed: 02/24/18 09:42> Vital signs: Vital Signs 02/23/18 18:00 02/23/18 20:00 02/23/18 22:00 Temperature 98.6 F Pulse Rate 76 75 70 Respiratory Rate 15 Blood Pressure 135/80 Pulse Oximetry 93 L 02/24/18 00:00 02/24/18 02:00 02/24/18 04:00 Temperature 98.7 F 98.5 F Pulse Rate 70 73 73 Respiratory Rate 20 16 Blood Pressure 133/73 144/91 H Pulse Oximetry 95 95 02/24/18 06:00 02/24/18 07:44 02/24/18 08:00 Temperature 99.1 F Pulse Rate 73 100 H Respiratory Rate 14 Blood Pressure 150/70 H Pulse Oximetry 96 100 02/24/18 10:00 02/24/18 12:00 02/24/18 15:01 Temperature 97.7 F 97.9 F Pulse Rate 69 71 85 Respiratory Rate 13 14 Blood Pressure 124/66 125/70 Pulse Oximetry 93 L 91 L 02/24/18 16:00 Temperature 97.7 F Pulse Rate 76 Respiratory Rate 12 Blood Pressure 154/78 H Pulse Oximetry 90 L Intake & Output 02/23/18 02/24/18 02/24/18 18:59 06:59 18:59 Intake Total 960 / 960 Output Total 1000 / 1000 450 / 450 Balance -40 / -40 -450 / -450 Weight 122.3 kg Intake: Oral 960 / 960 Output: Urine 1000 / 1000 450 / 450 Other: # Voids 22 Date of Last Bowel Movement 02/23/18 02/23/18 02/23/18 # Bowel Movements 1 <DeboraRahul - Last Filed: 02/24/18 17:28> Assessment and Plan - Assessment (1) Intracranial hemorrhage Code(s): I62.9 - Nontraumatic intracranial hemorrhage, unspecified Status: Acute (2) Altered mental status Code(s): R41.82 - Altered mental status, unspecified Status: Acute (3) Medication induced coagulopathy Code(s): D68.9 - Coagulation defect, unspecified; T50.905A - Adverse effect of unspecified drugs, medicaments and biological substances, initial encounter Status: Acute (4) Basal ganglia hemorrhage Code(s): I61.0 - Nontraumatic intracerebral hemorrhage in hemisphere, subcortical Status: Acute (5) Hypertension Code(s): I10 - Essential (primary) hypertension Status: Acute (6) H/O splenectomy Code(s): Z90.81 - Acquired absence of spleen Status: Acute (7) History of bilateral knee arthroplasty Code(s): Z96.653 - Presence of artificial knee joint, bilateral Status: Acute (8) H/O sinus surgery Code(s): Z98.890 - Other specified postprocedural states Status: Acute - Plan Continue with blood pressure control. Continue with PT/OT/Speech therapy Continue with DVT prophylaxis Continue with GI prophylaxis. Continue with medical management. <Andry Malik - Last Filed: 02/24/18 09:42> - Assessment (1) Basal ganglia hemorrhage Code(s): I61.0 - Nontraumatic intracerebral hemorrhage in hemisphere, subcortical Status: Acute (2) Hypertension Code(s): I10 - Essential (primary) hypertension Status: Acute Qualifiers: Hypertension type: essential hypertension Qualified Code(s): I10 - Essential (primary) hypertension (3) Intracranial hemorrhage Code(s): I62.9 - Nontraumatic intracranial hemorrhage, unspecified Status: Acute (4) Medication induced coagulopathy Code(s): D68.9 - Coagulation defect, unspecified; T50.905A - Adverse effect of unspecified drugs, medicaments and biological substances, initial encounter Status: Acute (5) Atrial fibrillation Code(s): I48.91 - Unspecified atrial fibrillation Status: Acute - Attending Attestation The exam, history, and the medical decision-making described in the above note were completed with the assistance of the mid-level provider. I reviewed and agree with the findings presented. I attest that I had a [id number] encounter with the patient on the same day, and personally performed and documented my assessment and findings in the medical record. <Rahul Cazares - Last Filed: 02/24/18 17:28>
--- NOTE | 2018-02-24 15:41 | P.PN ---
Subjective Interval history: patient tolerating po well- regular diet did states - - some pain back of the head "mild" when asked ff all commands speech soft, slightly slurred Physical Exam Vital signs: Vital Signs 02/23/18 16:00 02/23/18 18:00 02/23/18 20:00 Temperature 97.9 F 98.6 F Pulse Rate 72 76 75 Respiratory Rate 18 15 Blood Pressure 166/86 H 135/80 Pulse Oximetry 94 L 93 L 02/23/18 22:00 02/24/18 00:00 02/24/18 02:00 Temperature 98.7 F Pulse Rate 70 70 73 Respiratory Rate 20 Blood Pressure 133/73 Pulse Oximetry 95 02/24/18 04:00 02/24/18 06:00 02/24/18 07:44 Temperature 98.5 F Pulse Rate 73 73 Respiratory Rate 16 Blood Pressure 144/91 H Pulse Oximetry 95 96 02/24/18 08:00 02/24/18 10:00 02/24/18 12:00 Temperature 99.1 F 97.7 F Pulse Rate 100 H 69 71 Respiratory Rate 14 13 Blood Pressure 150/70 H 124/66 Pulse Oximetry 100 93 L 02/24/18 15:01 Temperature 97.9 F Pulse Rate 85 Respiratory Rate 14 Blood Pressure 125/70 Pulse Oximetry 91 L Intake & Output 02/23/18 02/24/18 02/24/18 18:59 06:59 18:59 Intake Total 960 / 960 Output Total 1000 / 1000 450 / 450 Balance -40 / -40 -450 / -450 Weight 122.3 kg Intake: Oral 960 / 960 Output: Urine 1000 / 1000 450 / 450 Other: # Voids 22 Date of Last Bowel Movement 02/23/18 02/23/18 02/23/18 # Bowel Movements 1 Narrative: awake and alert, oriented to person and year, ff all commands, able to show fingers when asked to, knows the [place] prsident anicteric, pupils equal mild right shallow nasolabial fold tongue midline, good gag neck supple lungs- no rales irregularly irregular rhythm abdomen soft, nontender extremities no edema, moves all extremities equally gait testing deferred Results - Labs CBC & Chem 7: 02/24/18 05:37 02/24/18 05:37 Laboratory Results - last 24 hr 02/24/18 02/24/18 02/24/18 05:37 05:37 05:37 WBC 10.3 RBC 3.90 L Hgb 12.8 L Hct 37.9 L MCV 97.3 MCH 32.8 MCHC 33.7 RDW 14.8 Plt Count 170 MPV 10.2 Neut % (Auto) 64.8 Lymph % (Auto) 19.2 [place] % (Auto) 11.6 H Eos % (Auto) 4.2 H Baso % (Auto) 0.2 Neut # (Auto) 6.7 Lymph # (Auto) 2.0 [place] # (Auto) 1.2 H Eos # (Auto) 0.4 Baso # (Auto) 0.0 WBC Differential . Differential Comment Auto diff final Sodium 146 H Potassium 3.7 Chloride 112 H Carbon Dioxide 26.8 Anion Gap 7 BUN 25 H Creatinine 1.18 Estimated GFR 60 L Random Glucose 92 Hemoglobin A1c 5.5 Calcium 8.0 L Phosphorus 3.3 Magnesium 1.9 Total Bilirubin 0.8 AST 22 ALT 30 Alkaline Phosphatase 65 Total Protein 5.7 L D Albumin 2.9 L Triglycerides 55 Cholesterol 103 L LDL Cholesterol, Calc 54 HDL Cholesterol 38.4 L Cholesterol/HDL Ratio 2.68 TSH 0.993 Free T4 1.13 Microbiology 02/20/18 21:12 Blood - Peripheral Aerobic Blood Culture - Preliminary No growth in 4 days 02/20/18 21:12 Blood - Peripheral Anaerobic Blood Culture - Preliminary No growth in 4 days 02/20/18 21:12 Blood - Peripheral Aerobic Blood Culture - Preliminary No growth in 4 days 02/20/18 21:12 Blood - Peripheral Anaerobic Blood Culture - Preliminary No growth in 4 days Assessment and Plan - Plan 77 years old right handed male Subacute L Thalamic and basal ganglia hemorrhage S/P fall- 02/20 Restless leg syndrome Anxiety Depression MRI with 1.5 cm hemorrhage in left thalamus. There is edema with mass-effect, no mass lesion. Maintain systolic blood pressure less than 160. Hold Xarelto [facility] follow [facility] Continue ropinirole ER 6 mg p.o. (takes at 7 pm, pt to use own med because not on formulary) and 0.5 mg p.o. q12 (takes at bedtime) Continue gabapentin 600 mg p.o. 3 times daily, Zoloft 150 mg daily. Hold OAC- was on coumadin as OP PT eval and treat daily Speech ff- cognitive evaluation and speech therapy- swallowing eval- good- regular diet COPD History of tobacco abuse On room air Continue Budesonide/formoterol 2 puffs inh bid. Albuterol prn. CV: Atrial fibrillation status post recent ablation 2weeks ago- telemetry in a [facility] Chronic anticoagulation with warfarin Hyperlipidemia Hypertension- good readings Continue amiodarone 200 mg daily Continue Lipitor 40 mg p.o. daily Cardene to maintain systolic blood pressure less than 160 continue on Lisinopril 10 mg bid Lopressor 25 mg po bid Coumadin Discontinued GI: GERD Bedside swallow evaluation past and advance diet as appropriate. FEN/RENAL: BPH Monitor electrolyte and replace as indicated per ICU electrolyte placement protocol Continue tamsulosin ID: Fever- T down Isolated fever. ?secondary to ICH. Ua neg and cXR clear. f.u blood cultures. Watch off abx for now. HEME: Monitor CBC. ENDO: Euglycemic. PROPH: SCDs for DVT prophylaxis. Pharmacologic DVT prophylaxis contraindicated due to intracerebral hemorrhage. Protonix 40 mg IV daily for stress ulcer prophylaxis. ACCESS: Peripheral IV providing adequate access at this time FULL CODE CM consult for DC planning
[2018-02-24] MEDS: Chlorhexidine Gluconate 2% 1 Pack (2 Cloths) TOPICAL SCH (21:25)
[2018-02-25] MEDS: Chlorhexidine Gluconate 2% 1 Pack (2 Cloths) TOPICAL SCH (08:38)
[2018-02-25] MEDS: Senna/Docusate Sodium 8.6/50 MG Tablet PO SCH ×2 (08:41→21:45)
[2018-02-25] MEDS: Gabapentin 300 MG Capsule PO SCH ×3 (08:41→17:15)
[2018-02-25] MEDS: Metoprolol Tartrate 25 MG Tablet PO SCH ×3 (08:41→17:15)
[2018-02-25] MEDS: Finasteride 5 MG Tablet PO SCH (08:41)
[2018-02-25] MEDS: Amiodarone 200 MG Tablet PO SCH (08:42)
[2018-02-25] MEDS: Sertraline 100 MG Tablet PO SCH (08:42)
[2018-02-25] MEDS: Lisinopril 10 MG Tablet PO SCH ×2 (08:42→21:39)
[2018-02-25] MEDS: Budesonide-Formoterol 160/4.5 MCG 6 GM Inhaler INH SCH ×2 (08:43→21:42)
--- NOTE | 2018-02-25 10:46 | P.PN ---
Subjective Interval history: seen with daughter at bedside patient with no complains- interactive- speech soft but clear denies any ehadaches. mvoes all extremities spontaenously for me- good strength Physical Exam Vital signs: Vital Signs 02/24/18 12:00 02/24/18 15:01 02/24/18 16:00 Temperature 97.7 F 97.9 F 97.7 F Pulse Rate 71 85 76 Respiratory Rate 13 14 12 Blood Pressure 124/66 125/70 154/78 H Pulse Oximetry 93 L 91 L 90 L 02/24/18 18:14 02/24/18 20:00 02/25/18 00:00 Temperature 98.5 F 99.4 F Pulse Rate 79 77 Respiratory Rate 16 16 Blood Pressure 158/101 H 156/76 H Pulse Oximetry 91 L 94 L 94 L 02/25/18 01:46 02/25/18 03:39 02/25/18 04:00 Temperature 98.4 F Pulse Rate 68 Respiratory Rate 18 18 18 Blood Pressure 185/99 H Pulse Oximetry 96 02/25/18 05:15 02/25/18 07:51 02/25/18 08:00 Temperature 97.8 F Pulse Rate 73 72 Respiratory Rate 18 18 Blood Pressure 146/85 H Pulse Oximetry 96 Intake & Output 02/24/18 02/25/18 02/25/18 18:59 06:59 18:59 Other: # Voids 1 Date of Last Bowel Movement 02/23/18 Narrative: awake and alert, oriented to person and year, ff all commands, interacted appropriately anicteric, pupils equal mild right shallow nasolabial fold tongue midline, good gag neck supple lungs- no rales irregularly irregular rhythm abdomen soft, nontender extremities no edema, moves all extremities equally strength 5/5 gait testing deferred Results - Labs CBC & Chem 7: 02/24/18 05:37 02/24/18 05:37 Laboratory Results - last 24 hr 02/24/18 05:37 Hemoglobin A1c 5.5 Microbiology 02/20/18 21:12 Blood - Peripheral Aerobic Blood Culture - Preliminary No growth in 4 days 02/20/18 21:12 Blood - Peripheral Anaerobic Blood Culture - Preliminary No growth in 4 days 02/20/18 21:12 Blood - Peripheral Aerobic Blood Culture - Preliminary No growth in 4 days 02/20/18 21:12 Blood - Peripheral Anaerobic Blood Culture - Preliminary No growth in 4 days Assessment and Plan - Plan 77 years old right handed male 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 There is edema with mass-effect, no mass lesion. Maintain systolic blood pressure less than 160. Hold Xarelto [facility] Continue ropinirole ER 6 mg p.o. (takes at 7 pm, pt to use own med because not on formulary) and 0.5 mg p.o. q12 (takes at bedtime) Continue gabapentin 600 mg p.o. 3 times daily, Zoloft 150 mg daily. NO OAC- was on coumadin as OP PT eval and treat daily Speech ff- cognitive evaluation and speech therapy- swallowing eval- good- regular diet COPD History of tobacco abuse On room air Continue Budesonide/formoterol 2 puffs inh bid. Albuterol prn. CV: Atrial fibrillation status post recent ablation 2weeks ago- telemetry in [facility] Chronic anticoagulation with warfarin Hyperlipidemia Hypertensive crisis onadmission- was on Cardene drip initially - now with better reading Continue amiodarone 200 mg daily Continue Lipitor 40 mg p.o. daily Cardene to maintain systolic blood pressure less than 160 continue on Lisinopril 10 mg bid Lopressor 25 mg po bid Coumadin Discontinued due to ICH GI: GERD Bedside swallow evaluation past and advance diet as appropriate. FEN/RENAL: BPH Monitor electrolyte and replace as indicated per ICU electrolyte placement protocol Continue tamsulosin ID: Fever- T down Isolated fever. ?secondary to ICH. Ua neg and cXR clear. f.u blood cultures. Watch off abx for now. HEME: Monitor CBC. ENDO: Euglycemic. PROPH: SCDs for DVT prophylaxis. Pharmacologic DVT prophylaxis contraindicated due to intracerebral hemorrhage. Protonix 40 mg daily for GI [[id number] ACCESS: Peripheral IV providing adequate access at this time FULL CODE CM consult for DC planning d/w daughter-she is in the process arranging her parents to take them back to [place] she is from [place] and taking her mom home who has dementia- needs total care- this coming week - d/w that plan is to get patient to rehab she want to know when her Dad is safe to fly back to [place] -sometime next 1-2 weeks if not driving can be an option we will d/w Enoc Pathak
--- NOTE | 2018-02-25 11:53 | P.PNNS ---
Subjective Interval history: Pt awake and alert. Denies headache, nausea, or vomiting. Moderate expressive aphasia and dysarthric speech with improvement. <Andry Malik - Last Filed: 02/25/18 11:42> Physical Exam Vital signs: Vital Signs 02/24/18 12:00 02/24/18 15:01 02/24/18 16:00 Temperature 97.7 F 97.9 F 97.7 F Pulse Rate 71 85 76 Respiratory Rate 13 14 12 Blood Pressure 124/66 125/70 154/78 H Pulse Oximetry 93 L 91 L 90 L 02/24/18 18:14 02/24/18 20:00 02/25/18 00:00 Temperature 98.5 F 99.4 F Pulse Rate 79 77 Respiratory Rate 16 16 Blood Pressure 158/101 H 156/76 H Pulse Oximetry 91 L 94 L 94 L 02/25/18 01:46 02/25/18 03:39 02/25/18 04:00 Temperature 98.4 F Pulse Rate 68 Respiratory Rate 18 18 18 Blood Pressure 185/99 H Pulse Oximetry 96 02/25/18 05:15 02/25/18 07:51 02/25/18 08:00 Temperature 97.8 F Pulse Rate 73 72 Respiratory Rate 18 18 Blood Pressure 146/85 H Pulse Oximetry 96 Intake & Output 02/24/18 02/25/18 02/25/18 18:59 06:59 18:59 Other: # Voids 1 Date of Last Bowel Movement 02/23/18 - Constitutional no acute distress - Routine HEENT Exam Head: Present: normocephalic, atraumatic Eye: Present: PERRL - Routine Respiratory Exam Present: CTA bilaterally. Absent: respiratory distress, rhonchi, wheezes - Routine Cardiovascular Exam Present: RRR, S1, S2. Absent: murmur - Routine Abdominal Exam Present: soft, normoactive bowel sounds. Absent: tenderness, distended - Routine Skin Exam Present: intact. Absent: cyanosis, erythema - Routine Neurological Exam Present: alert, motor deficit (right hemiparesis. Ambulates with short stride gait using walker.), facial asymmetry (right facial paresis.). Absent: altered mental status, normal speech (Dysarthric) - Routine Psychiatric Exam Present: normal affect, cooperative. Absent: anxious, agitated <Andry Malik - Last Filed: 02/25/18 11:42> Vital signs: Vital Signs 02/24/18 15:01 02/24/18 16:00 02/24/18 18:14 Temperature 97.9 F 97.7 F Pulse Rate 85 76 Respiratory Rate 14 12 Blood Pressure 125/70 154/78 H Pulse Oximetry 91 L 90 L 91 L 02/24/18 20:00 02/25/18 00:00 02/25/18 01:46 Temperature 98.5 F 99.4 F Pulse Rate 79 77 Respiratory Rate 16 16 18 Blood Pressure 158/101 H 156/76 H Pulse Oximetry 94 L 94 L 02/25/18 03:39 02/25/18 04:00 02/25/18 05:15 Temperature 98.4 F Pulse Rate 68 Respiratory Rate 18 18 18 Blood Pressure 185/99 H Pulse Oximetry 96 02/25/18 07:51 02/25/18 08:00 02/25/18 11:50 Temperature 97.8 F 97.5 F L Pulse Rate 73 72 81 Respiratory Rate 18 22 Blood Pressure 146/85 H 148/70 H Pulse Oximetry 96 90 L Intake & Output 02/24/18 02/25/18 02/25/18 18:59 06:59 18:59 Other: # Voids 1 Date of Last Bowel Movement 02/23/18 <Rahul Cazares - Last Filed: 02/25/18 12:04> Assessment and Plan - Assessment (1) Intracranial hemorrhage Code(s): I62.9 - Nontraumatic intracranial hemorrhage, unspecified Status: Acute (2) Altered mental status Code(s): R41.82 - Altered mental status, unspecified Status: Acute (3) Medication induced coagulopathy Code(s): D68.9 - Coagulation defect, unspecified; T50.905A - Adverse effect of unspecified drugs, medicaments and biological substances, initial encounter Status: Acute (4) Basal ganglia hemorrhage Code(s): I61.0 - Nontraumatic intracerebral hemorrhage in hemisphere, subcortical Status: Acute (5) Hypertension Code(s): I10 - Essential (primary) hypertension Status: Acute Qualifiers: Hypertension type: essential hypertension Qualified Code(s): I10 - Essential (primary) hypertension (6) H/O splenectomy Code(s): Z90.81 - Acquired absence of spleen Status: Acute (7) History of bilateral knee arthroplasty Code(s): Z96.653 - Presence of artificial knee joint, bilateral Status: Acute (8) H/O sinus surgery Code(s): Z98.890 - Other specified postprocedural states Status: Acute - Plan Continue with blood pressure control. Continue with PT/OT/Speech therapy Continue with DVT prophylaxis Continue with GI prophylaxis. Continue with medical management. Rehab placement. Pt possibly traveling closer to family in [place]. Neurosurgically cleared to fly per Dr. Cazares. Recommend he follow up with Neurosurgery up there if he leaves the area. <Andry Malik - Last Filed: 02/25/18 11:42> - Assessment (1) Basal ganglia hemorrhage Code(s): I61.0 - Nontraumatic intracerebral hemorrhage in hemisphere, subcortical Status: Acute (2) Hypertension Code(s): I10 - Essential (primary) hypertension Status: Acute Qualifiers: Hypertension type: essential hypertension Qualified Code(s): I10 - Essential (primary) hypertension (3) Intracranial hemorrhage Code(s): I62.9 - Nontraumatic intracranial hemorrhage, unspecified Status: Acute (4) Medication induced coagulopathy Code(s): D68.9 - Coagulation defect, unspecified; T50.905A - Adverse effect of unspecified drugs, medicaments and biological substances, initial encounter Status: Acute (5) Atrial fibrillation Code(s): I48.91 - Unspecified atrial fibrillation Status: Acute - Attending Attestation The exam, history, and the medical decision-making described in the above note were completed with the assistance of the mid-level provider. I reviewed and agree with the findings presented. I attest that I had a [id number] encounter with the patient on the same day, and personally performed and documented my assessment and findings in the medical record. <Rahul Cazares - Last Filed: 02/25/18 12:04>
[2018-02-25 12:21] LABS: Calcium 8.6 mg/dL (8.5-10.1); Carbon Dioxide 28.6 meq/L (21.0-32.0)
[2018-02-26] MEDS: Sertraline 100 MG Tablet PO SCH (08:23)
[2018-02-26] MEDS: Senna/Docusate Sodium 8.6/50 MG Tablet PO SCH (08:23)
[2018-02-26] MEDS: Finasteride 5 MG Tablet PO SCH (08:24)
[2018-02-26] MEDS: Amiodarone 200 MG Tablet PO SCH (08:24)
[2018-02-26] MEDS: Gabapentin 300 MG Capsule PO SCH ×3 (08:24→16:59)
[2018-02-26] MEDS: Budesonide-Formoterol 160/4.5 MCG 6 GM Inhaler INH SCH ×2 (08:24→21:55)
[2018-02-26] MEDS: Metoprolol Tartrate 25 MG Tablet PO SCH ×3 (08:24→16:59)
[2018-02-26] MEDS: Lisinopril 10 MG Tablet PO SCH ×2 (08:24→21:55)
--- NOTE | 2018-02-26 10:12 | P.PN ---
Subjective Interval history: cancel- duplicate documentation Physical Exam Vital signs: Vital Signs 02/25/18 11:50 02/25/18 12:00 02/25/18 16:00 Temperature 97.5 F L Pulse Rate 81 82 67 Respiratory Rate 22 Blood Pressure 148/70 H Pulse Oximetry 90 L 02/25/18 16:34 02/25/18 20:00 02/25/18 20:37 Temperature 98.0 F 98.7 F Pulse Rate 66 69 79 Respiratory Rate 18 20 Blood Pressure 132/84 Pulse Oximetry 95 94 L 02/26/18 00:00 02/26/18 01:25 02/26/18 04:00 Temperature 97.3 F L 97.2 F L Pulse Rate 64 70 Respiratory Rate 20 16 20 Blood Pressure 160/95 H Pulse Oximetry 96 95 02/26/18 06:38 02/26/18 08:00 Temperature 98.1 F Pulse Rate 76 Respiratory Rate 16 16 Blood Pressure 168/101 H Pulse Oximetry 94 L Intake & Output 02/25/18 02/26/18 02/26/18 18:59 06:59 18:59 Output Total 650 / 650 200 / 200 Balance -650 / -650 -200 / -200 Weight 136.9 kg Output: Urine 650 / 650 200 / 200 Other: # Voids 2 Date of Last Bowel Movement 02/23/18 # Bowel Movements 1 Results - Labs CBC & Chem 7: 02/24/18 05:37 02/25/18 11:17 Laboratory Results - last 24 hr 02/25/18 11:17 Sodium 144 Potassium 4.0 Chloride 112 H Carbon Dioxide 28.6 Anion Gap 3 L BUN 21 H Creatinine 1.28 Estimated GFR 55 L Random Glucose 76 Calcium 8.6 Microbiology 02/20/18 21:12 Blood - Peripheral Aerobic Blood Culture - Final No growth in 5 days 02/20/18 21:12 Blood - Peripheral Anaerobic Blood Culture - Final No growth in 5 days 02/20/18 21:12 Blood - Peripheral Aerobic Blood Culture - Final No growth in 5 days 02/20/18 21:12 Blood - Peripheral Anaerobic Blood Culture - Final No growth in 5 days
--- NOTE | 2018-02-26 10:23 | P.PN ---
Subjective Interval history: patient awake and alert speech clearer and more spontaenousl but still with some mild expressive aphasia when singing though- words and lyrics came out spontaneously and clearer words no pain complains strength good Physical Exam Vital signs: Vital Signs 02/25/18 11:50 02/25/18 12:00 02/25/18 16:00 Temperature 97.5 F L Pulse Rate 81 82 67 Respiratory Rate 22 Blood Pressure 148/70 H Pulse Oximetry 90 L 02/25/18 16:34 02/25/18 20:00 02/25/18 20:37 Temperature 98.0 F 98.7 F Pulse Rate 66 69 79 Respiratory Rate 18 20 Blood Pressure 132/84 Pulse Oximetry 95 94 L 02/26/18 00:00 02/26/18 01:25 02/26/18 04:00 Temperature 97.3 F L 97.2 F L Pulse Rate 64 70 Respiratory Rate 20 16 20 Blood Pressure 160/95 H Pulse Oximetry 96 95 02/26/18 06:38 02/26/18 08:00 Temperature 98.1 F Pulse Rate 76 Respiratory Rate 16 16 Blood Pressure 168/101 H Pulse Oximetry 94 L Intake & Output 02/25/18 02/26/18 02/26/18 18:59 06:59 18:59 Output Total 650 / 650 200 / 200 Balance -650 / -650 -200 / -200 Weight 136.9 kg Output: Urine 650 / 650 200 / 200 Other: # Voids 2 Date of Last Bowel Movement 02/23/18 # Bowel Movements 1 Narrative: awake and alert, oriented to person and year, ff all commands, interacted - very spontaenously mild expressive aphasia, mild dysarthria anicteric, pupils equal mild right shallow nasolabial fold tongue midline, good gag neck supple lungs- no rales irregularly irregular rhythm abdomen soft, nontender extremities no edema, moves all extremities equally strength 5/5 walker with walker Results - Labs CBC & Chem 7: 02/24/18 05:37 02/25/18 11:17 Laboratory Results - last 24 hr 02/25/18 11:17 Sodium 144 Potassium 4.0 Chloride 112 H Carbon Dioxide 28.6 Anion Gap 3 L BUN 21 H Creatinine 1.28 Estimated GFR 55 L Random Glucose 76 Calcium 8.6 Microbiology 02/20/18 21:12 Blood - Peripheral Aerobic Blood Culture - Final No growth in 5 days 02/20/18 21:12 Blood - Peripheral Anaerobic Blood Culture - Final No growth in 5 days 02/20/18 21:12 Blood - Peripheral Aerobic Blood Culture - Final No growth in 5 days 02/20/18 21:12 Blood - Peripheral Anaerobic Blood Culture - Final No growth in 5 days Assessment and Plan - Plan 77 years old right handed male 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 There is edema with mass-effect, no mass lesion. Maintain systolic blood pressure less than 160. Hold Xarelto Received [facility] Continue ropinirole ER 6 mg p.o. (takes at 7 pm, pt to use own med because not on formulary) and 0.5 mg p.o. q12 (takes at bedtime) Continue gabapentin 600 mg p.o. 3 times daily, Zoloft 150 mg daily. NO OAC- was on coumadin as OP PT eval and treat daily Speech ff- cognitive evaluation and speech therapy- swallowing eval- good- regular diet COPD History of tobacco abuse On room air Continue Budesonide/formoterol 2 puffs inh bid. Albuterol prn. CV: Atrial fibrillation status post recent ablation 2weeks ago- telemetry in a fib Chronic anticoagulation with warfarin Hyperlipidemia Hypertensive crisis on admission- was on Cardene drip initially - still with some occasional elevated redings Continue amiodarone 200 mg daily, LOpressor 25 mg po bid Continue Lipitor 40 mg p.o. daily Cardene to maintain systolic blood pressure less than 160 continue on Lisinopril 10 mg bid - some eelvated readings- add Amlodipine 2.5 mg po daily Coumadin Discontinued due to ICH GI: GERD - tolerating diet -speech ff FEN/RENAL: BPH Monitor electrolyte and replace as indicated per ICU electrolyte placement protocol Continue tamsulosin ID: Fever- T down Isolated fever. ?secondary to ICH. Ua neg and cXR clear. f.u blood cultures. Watch off abx for now. HEME: Monitor CBC. ENDO: Euglycemic. PROPH: SCDs for DVT prophylaxis. Pharmacologic DVT prophylaxis contraindicated due to intracerebral hemorrhage. Protonix 40 mg daily for GI [rp[julaxs ACCESS: Peripheral IV providing adequate access at this time FULL CODE CM consult for DC planning d/w daughter-she is in the process arranging her parents to take them back [place] and taking her mom home who has dementia- needs total care- this coming week - d/w that plan is to get patient to rehab- PO if accepted she want to know when her Dad is safe to fly back to [place] -sometime next 1-2 weeks if not driving can be an option per NS- patient okay to fly home in plane if decides to go back to [place]
[2018-02-26] MEDS: amLODIPine 5 MG Tablet PO SCH (11:30)
[2018-02-27] MEDS: Senna/Docusate Sodium 8.6/50 MG Tablet PO SCH ×3 (00:47→21:38)
[2018-02-27] MEDS: Budesonide-Formoterol 160/4.5 MCG 6 GM Inhaler INH SCH ×2 (10:57→21:40)
[2018-02-27] MEDS: amLODIPine 5 MG Tablet PO SCH (10:58)
[2018-02-27] MEDS: Lisinopril 10 MG Tablet PO SCH ×2 (10:58→21:38)
[2018-02-27] MEDS: Finasteride 5 MG Tablet PO SCH (10:58)
[2018-02-27] MEDS: Sertraline 100 MG Tablet PO SCH (10:59)
[2018-02-27] MEDS: Amiodarone 200 MG Tablet PO SCH (10:59)
[2018-02-27] MEDS: Metoprolol Tartrate 25 MG Tablet PO SCH ×3 (10:59→17:10)
[2018-02-27] MEDS: Gabapentin 300 MG Capsule PO SCH ×4 (10:59→17:10)
[2018-02-27] MEDS ORDERED: amLODIPine 5 MG Tablet PO ONE (14:39)
--- NOTE | 2018-02-27 14:48 | P.PN ---
Subjective Interval history: no complains speech more spontaenousl no aphaia Physical Exam Vital signs: Vital Signs 02/26/18 15:33 02/26/18 16:00 02/26/18 20:00 Temperature 97.7 F 98.2 F Pulse Rate 71 70 67 Respiratory Rate 14 18 Blood Pressure 158/94 H 133/90 Pulse Oximetry 96 95 02/26/18 23:51 02/27/18 00:00 02/27/18 04:00 Temperature 98 F 98.2 F Pulse Rate 68 78 62 Respiratory Rate 18 18 Blood Pressure 132/87 131/94 H Pulse Oximetry 96 97 02/27/18 08:00 02/27/18 12:00 Temperature 97.6 F 97.7 F Pulse Rate 75 82 Respiratory Rate 14 15 Blood Pressure 152/101 H 160/97 H Pulse Oximetry 94 L 92 L Intake & Output 02/26/18 02/27/18 02/27/18 18:59 06:59 18:59 Intake Total 960 / 960 Output Total 200 / 200 Balance 760 / 760 Weight 136.2 kg Intake: Oral 960 / 960 Output: Urine 200 / 200 Other: # Voids 2 Date of Last Bowel Movement 02/23/18 02/25/18 02/25/18 # Bowel Movements 1 Narrative: awake and alert, oriented to person and year, ff all commands, interacted - very spontaenous speech clear , no dyarthria anicteric, pupils equal mild right shallow nasolabial fold tongue midline, good gag neck supple lungs- no rales irregularly irregular rhythm abdomen soft, nontender extremities no edema, moves all extremities equally strength 5/5 walker with walker Results - Labs CBC & Chem 7: 02/24/18 05:37 02/25/18 11:17 Assessment and Plan - Plan 77 years old right handed male 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 There is edema with mass-effect, no mass lesion. Maintain systolic blood pressure less than 160. Hold Xarelto Received [facility] Continue ropinirole ER 6 mg p.o. (takes at 7 pm, pt to use own med because not on formulary) and 0.5 mg p.o. q12 (takes at bedtime) Continue gabapentin 600 mg p.o. 3 times daily, Zoloft 150 mg daily. NO OAC- was on coumadin as OP PT eval and treat daily Speech ff- cognitive evaluation and speech therapy- swallowing eval- good- regular diet COPD History of tobacco abuse On room air Continue Budesonide/formoterol 2 puffs inh bid. Albuterol prn. CV: Atrial fibrillation status post recent ablation 2weeks ago- telemetry in a fib Chronic anticoagulation with warfarin Hyperlipidemia Hypertensive crisis on admission- was on Cardene drip initially - still with some occasional elevated redings Continue amiodarone 200 mg daily, LOpressor 25 mg po bid Continue Lipitor 40 mg p.o. daily Cardene to maintain systolic blood pressure less than 160 continue on Lisinopril 10 mg bid - some eelvated readings- Increase amlodpine Coumadin Discontinued due to ICH GI: GERD - tolerating diet -speech ff FEN/RENAL: BPH Continue tamsulosin ID: Fever- T down Isolated fever. ?secondary to ICH. Ua neg and cXR clear. f.u blood cultures. Watch off abx for now. HEME: Monitor CBC. ENDO: Euglycemic. PROPH: SCDs for DVT prophylaxis. Pharmacologic DVT prophylaxis contraindicated due to intracerebral hemorrhage. Protonix 40 mg daily for GI [rp[julaxs ACCESS: Peripheral IV providing adequate access at this time FULL CODE CM consult for DC planning d/w daughter-she is in the process arranging her parents to take them back to [place] she is from [place] and taking her mom home who has dementia- needs total care- this coming week - d/w that plan is to get patient to rehab- PO if accepted- hopefully tomrrow she want to know when her Dad is safe to fly back to [place] -sometime next 1-2 weeks if not driving can be an option per NS- patient okay to fly home in plane if decides to go back to [place]
[2018-02-28] MEDS: Amiodarone 200 MG Tablet PO SCH (08:43)
[2018-02-28] MEDS: Metoprolol Tartrate 25 MG Tablet PO SCH ×2 (08:43→12:21)
[2018-02-28] MEDS: Finasteride 5 MG Tablet PO SCH (08:43)
[2018-02-28] MEDS: Sertraline 100 MG Tablet PO SCH (08:43)
[2018-02-28] MEDS: Gabapentin 300 MG Capsule PO SCH ×2 (08:43→12:21)
[2018-02-28] MEDS: Senna/Docusate Sodium 8.6/50 MG Tablet PO SCH (08:44)
[2018-02-28] MEDS: Lisinopril 10 MG Tablet PO SCH (08:44)
[2018-02-28] MEDS: Budesonide-Formoterol 160/4.5 MCG 6 GM Inhaler INH SCH (08:44)
[2018-02-28] MEDS ORDERED: REQUIP 6 MG PO SCH (09:00)
[2018-02-28] MEDS ORDERED: amLODIPine 10 MG Tablet PO SCH (09:00)
[2018-02-28 09:58] VITALS: RESP 20
[2018-02-28 14:04] VITALS: BP 117/73; TEMP 97.9; O2SAT 92
--- NOTE | 2018-02-28 14:10 | P.PN ---
Subjective Interval history: no complains good po no ehadaches, speech spontaneousl Physical Exam Vital signs: Vital Signs 02/27/18 16:00 02/27/18 20:00 02/28/18 00:00 Temperature 98.3 F 98.2 F 98.1 F Pulse Rate 75 74 68 Respiratory Rate 16 18 18 Blood Pressure 137/85 128/70 126/68 Pulse Oximetry 91 L 92 L 93 L 02/28/18 04:00 02/28/18 08:00 02/28/18 12:00 Temperature 98.2 F 97.7 F 97.9 F Pulse Rate 68 72 73 Respiratory Rate 18 20 20 Blood Pressure 117/76 170/72 H 117/73 Pulse Oximetry 96 93 L 92 L Intake & Output 02/27/18 02/28/18 02/28/18 18:59 06:59 18:59 Output Total 150 / 150 Balance -150 / -150 Output: Urine 150 / 150 Other: # Voids 5 3 Date of Last Bowel Movement 02/25/18 02/27/18 # Bowel Movements 1 Narrative: awake and alert, oriented to person and year, ff all commands, interacted - very spontaenous speech clear , no dysarthria anicteric, pupils equal mild right shallow nasolabial fold tongue midline, good gag neck supple lungs- no rales irregularly irregular rhythm abdomen soft, nontender extremities no edema, moves all extremities equally strength 5/5 walker with walker Results - Labs CBC & Chem 7: 02/24/18 05:37 02/25/18 11:17 Assessment and Plan - Plan 77 years old right handed male 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 There is edema with mass-effect, no mass lesion. Maintain systolic blood pressure less than 160. Hold Xarelto Received [facility] Continue ropinirole ER 6 mg p.o. (takes at 7 pm, pt to use own med because not on formulary) and 0.5 mg p.o. q12 (takes at bedtime) Continue gabapentin 600 mg p.o. 3 times daily, Zoloft 150 mg daily. NO OAC- was on coumadin as OP PT eval and treat daily Speech ff- cognitive evaluation and speech therapy- swallowing eval- good- regular diet COPD History of tobacco abuse On room air Continue Budesonide/formoterol 2 puffs inh bid. Albuterol prn. CV: Atrial fibrillation status post recent ablation 2weeks ago- telemetry in a fib Chronic anticoagulation with warfarin Hyperlipidemia Hypertensive crisis on admission- was on Cardene drip initially Continue amiodarone 200 mg daily, LOpressor 25 mg po bid Continue Lipitor 40 mg p.o. daily Cardene to maintain systolic blood pressure less than 160 continue on Lisinopril 10 mg bid - some eelvated readings- Increase amlodpine Coumadin Discontinued due to ICH GI: GERD - tolerating diet -speech ff FEN/RENAL: BPH Continue tamsulosin ID: Fever- T down Isolated fever. ?secondary to ICH. Ua neg and cXR clear. f.u blood cultures. Watch off abx for now. HEME: Monitor CBC. ENDO: Euglycemic. PROPH: SCDs for DVT prophylaxis. Pharmacologic DVT prophylaxis contraindicated due to intracerebral hemorrhage. Protonix 40 mg daily for GI [rp[julaxs ACCESS: Peripheral IV providing adequate access at this time FULL CODE CM consult for DC planning d/w daughter-she is in the process arranging her parents to take them back to [place] is from [place] and taking her mom home who has dementia- needs total care- this coming week - d/w that plan is to get patient to rehab- PO if accepted- hopefully tomrrow she want to know when her Dad is safe to fly back to [place] -sometime next 1-2 weeks if not driving can be an option per NS- patient okay to fly home in plane if decides to go back to [place] DC to PO rehab today
[2018-02-28 14:11] VITALS: PULSE 71
--- NOTE | 2018-02-28 14:18 | P.DS ---
Date of admission: 02/20/18 18:56 Primary care physician: UNKNOWN Anticipated date of discharge: 02/28/18 Brief History from admission: History obtained by discussion with ED staff. Patient was able to answer some questions. He is accompanied by his who has moderately severe dementia and is not able to provide any history whatsoever. 77-year-old male with past medical history of hypertension, hyperlipidemia, atrial fibrillation status post recent ablation about 2 weeks ago on anticoagulation with Xarelto, prior tobacco abuse, restless leg syndrome who recently moved to [place] from [place] 1 week ago. He presents to [facility] emergency department after his friend was speaking with him on the phone and noticed that his mental status was not at baseline. [facility] was called. Patient states that over the last 2-3 days he has had some headache "on the top of his head" and decreased appetite. He states he has fallen 3 times. He denies nausea, vomiting, photophobia, neck pain, seizures, weight loss. + cough. CT brain report states: 1.6 cm spontaneously hyperdense lesion in the left striatum with associated mass effect or midline shift. This suggests focal hematoma or hemorrhagic tumor. Low density in the left cerebral peduncle which is nonspecific in appearance, could possibly represent extension of edema from the striatum or second lesion. Recommend further characterization of these abnormalities using MRI of the brain with and without contrast. Emergency department physician discussed these findings with Dr. Cazares who recommended blood pressure control with SBP <160 and admit to family medicine physician. Pt states that his last dose of Xarelto was 02/19/18 in the morning. Not sure how reliable this information is. He has received [facility] in the emergency department. 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 There is edema with mass-effect, no mass lesion. Maintain systolic blood pressure less than 160. Hold Xarelto Received [facility] ff Continue ropinirole ER 6 mg p.o. (takes at 7 pm, pt to use own med because not on formulary) and 0.5 mg p.o. q12 (takes at bedtime) Continue gabapentin 600 mg p.o. 3 times daily, Zoloft 150 mg daily. NO OAC- was on coumadin as OP PT eval and treat daily Speech ff- cognitive evaluation and speech therapy- swallowing eval- good- regular diet COPD History of tobacco abuse On room air Continue Budesonide/formoterol 2 puffs inh bid. Albuterol prn. CV: Atrial fibrillation status post recent ablation 2weeks ago- telemetry in a fib Chronic anticoagulation with warfarin Hyperlipidemia Hypertensive crisis on admission- was on Cardene drip initially Continue amiodarone 200 mg daily, LOpressor 25 mg po bid Continue Lipitor 40 mg p.o. daily Cardene to maintain systolic blood pressure less than 160 continue on Lisinopril 10 mg bid - some eelvated readings- Increase amlodpine Coumadin Discontinued due to ICH GI: GERD - tolerating diet -speech ff FEN/RENAL: BPH Continue tamsulosin ID: Fever- T down Isolated fever. ?secondary to ICH. Ua neg and cXR clear. f.u blood cultures. Watch off abx for now. HEME: Monitor CBC. ENDO: Euglycemic. PROPH: SCDs for DVT prophylaxis. Pharmacologic DVT prophylaxis contraindicated due to intracerebral hemorrhage. Protonix 40 mg daily for GI [rp[julaxs ACCESS: Peripheral IV providing adequate access at this time FULL CODE CM consult for DC planning d/w daughter-she is in the process arranging her parents to take them back to [place] from [place] and taking her mom home who has dementia- needs total care- this coming week - d/w that plan is to get patient to rehab- PO if accepted- hopefully tomrrow she want to know when her Dad is safe to fly back to [place] -sometime next 1-2 weeks if not driving can be an option per NS- patient okay to fly home in plane if decides to go back to [place] DC to PO rehab today - Time Spent with Patient Total time spent providing and/or coordinating discharge services: Greater than 30 minutes - Quality: VTE Deep Vein Thrombosis/Pulmonary Embolism Present on Admission: Yes Exam Vital signs: Vital Signs 02/27/18 16:00 02/27/18 20:00 02/28/18 00:00 Temperature 98.3 F 98.2 F 98.1 F Pulse Rate 75 74 68 Respiratory Rate 16 18 18 Blood Pressure 137/85 128/70 126/68 Pulse Oximetry 91 L 92 L 93 L 02/28/18 04:00 02/28/18 08:00 02/28/18 12:00 Temperature 98.2 F 97.7 F 97.9 F Pulse Rate 68 72 71 Respiratory Rate 18 20 20 Blood Pressure 117/76 170/72 H 117/73 Pulse Oximetry 96 93 L 92 L Intake & Output 02/27/18 02/28/18 02/28/18 18:59 06:59 18:59 Output Total 150 / 150 Balance -150 / -150 Output: Urine 150 / 150 Other: # Voids 5 3 Date of Last Bowel Movement 02/25/18 02/27/18 # Bowel Movements 1 Results Procedures completed during hospitalization: none - Impressions ITS Impressions Head MRI 02/20/18 00:00 CONCLUSION: 1. 1.5 cm hemorrhage in the left thalamus with signal characteristics characteristic of subacute or chronic blood. No enhancing mass seen. Surrounding cerebral edema does cause 4 mm midline shift towards the right and extends into the left cerebral peduncle. Chest X-Ray 02/20/18 17:07 CONCLUSION: The lungs are clear. No infiltrates seen. Head CT 02/20/18 17:21 CONCLUSION: 1. 1.6 cm spontaneously hyperdense lesion in the left striatum with associated mass effect or midline shift. This suggests focal hematoma or hemorrhagic tumor. 2. Low density in the left cerebral peduncle which is nonspecific in appearance , could possibly represent extension of edema from the striatum or second lesion. Recommend further characterization of these abnormalities using MRI of the brain with and without contrast. . Foot X-Ray 02/21/18 00:00 CONCLUSION: 1. Limited 2 view exam. 2. No visualized fracture or malalignment. 3. Osteopenia and osteoarthritic change. 4. Small spur off the inferior calcaneus. 5. If clinical concern remains then a standard 3 view trauma study could be performed. Discharge Plan - Discharge Disposition Patient Disposition: 03 Discharge to SNF - Discharge Condition Condition: Stable - Discharge Order Discharge Orders: Discharge Order (Routine); Ordered 02/28/18 Ordered By: Aren Jones - Discharge Details Anticipated Discharge Date: 02/28/18 - Physicians Team Primary Care Provider: UNKNOWN, Attending Provider: Aren Jones Other Providers: Rahul Cazares MD ; [facility],[place]
== END 2018-02-28 18:09 ==
LOC: NEPE 15:48 → NEDA 18:56 → N03 22:22 → N05 02-24 14:10
PROVIDERS: ADMIT Internal Medicine; ATTEND Internal Medicine

== ENCOUNTER 2018-03-18 15:38 | Observation (INO) ==
[2018-03-18] MEDS ORDERED: Sod Chloride 0.9% Inj 1,000 ML IV.SIG ONE (16:23)
[2018-03-18 16:47] LABS: Baso % (Auto) 0.4 % (0.0-2.0); Eos # (Auto) 0.4 th/mm3 (0.0-0.4); Eos % (Auto) 4.1 % (0.0-4.0); Hematocrit 37.9 % (39.0-51.0); Hemoglobin 12.4 gm/dL (13.0-17.0); Lymph # (Auto) 2.1 th/mm3 (1.0-4.8); Lymph % (Auto) 21.4 % (9.0-44.0); Mean Corpuscular HGB Conc 32.8 % (32.0-36.0); Mean Corpuscular Hemoglobin 32.3 pg (27.0-34.0); Mean Corpuscular Volume 98.7 fL (80.0-100.0); Mean Platelet Volume 10.1 fL (7.0-11.0); Mono # (Auto) 0.7 th/mm3 (0.0-0.9); Mono % (Auto) 7.1 % (0.0-8.0); Neut # (Auto) 6.8 th/mm3 (1.8-7.7); Platelet Count 174 th/mm3 (150-450); Red Blood Count 3.84 mil/mm3 (4.50-5.90); Red Cell Distribution Width 13.6 % (11.6-17.2)
[2018-03-18 16:57] LABS: Chloride 110 meq/L (98-107); Sodium 143 meq/L (136-145)
[2018-03-18 17:00] LABS: Calcium 8.5 mg/dL (8.5-10.1)
[2018-03-18 17:01] LABS: Albumin 3.2 g/dL (3.4-5.0); Anion Gap 6 meq/L (5-15); Blood Urea Nitrogen 24 mg/dL (7-18); Carbon Dioxide 27.2 meq/L (21.0-32.0); Glucose,Random 90 mg/dL (74-106); Magnesium 1.8 mg/dL (1.5-2.5)
[2018-03-18 17:04] LABS: Alanine Aminotransferase 25 U/L (12-78); Aspartate Aminotransferase 19 U/L (15-37); Glomerular Filtration Rate 42 mL/min (>89)
[2018-03-18 17:05] LABS: Total Protein 5.9 g/dL (6.4-8.2)
[2018-03-18 17:07] LABS: Alkaline Phosphatase 75 U/L (45-117)
--- NOTE | 2018-03-18 17:17 | XR ---
EXAM DATE: 03/18/2018 5:07 PM EDT AGE/SEX: 77 years / Male INDICATIONS: Trauma to chest post fall today CLINICAL DATA: This is the patient's initial encounter. Patient reports that signs and symptoms have been present for 1 day and indicates a pain score of 0/10. MEDICAL/SURGICAL HISTORY: None. None. COMPARISON: [facility], CHEST 2V PA&LAT, 02/20/2018. . FINDINGS: Heart size mildly enlarged. Minimal basilar atelectasis. No effusion. No pneumothorax. Mildly tortuou s aorta. CONCLUSION: Heart size enlarged. Minimal basilar atelectasis. Electronically signed by: Tj Emanuel MD 03/18/2018 5:16 PM EDT
--- NOTE | 2018-03-18 17:18 | XR ---
EXAM DATE: 03/18/2018 5:11 PM EDT AGE/SEX: 77 years / Male INDICATIONS: Left knee pain post fall today CLINICAL DATA: This is the patient's initial encounter. Patient reports that signs and symptoms have been present for 1 day and indicates a pain score of 10/10. MEDICAL/SURGICAL HISTORY: None. Total knee replacement, left. COMPARISON: No prior exams available for comparison. FINDINGS: Postoperative left total knee replacement. Moderate to large knee joint effusion present. Calcificati ons in the suprapatellar soft tissues. No acute fracture. Normal alignment. CONCLUSION: Left total knee replacement with moderate to large knee joint effusion. Electronically signed by: Tj Emanuel MD 03/18/2018 5:17 PM EDT
--- NOTE | 2018-03-18 17:19 | XR ---
EXAM DATE: 03/18/2018 5:12 PM EDT AGE/SEX: 77 years / Male INDICATIONS: Right knee pain post fall today CLINICAL DATA: This is the patient's initial encounter. Patient reports that signs and symptoms have been present for 1 day and indicates a pain score of 5/10. MEDICAL/SURGICAL HISTORY: None. Total knee replacement, right. COMPARISON: No prior exams available for comparison. FINDINGS: Postoperative knee joint replacement. Normal alignment. Small joint effusion. No acute fracture. CONCLUSION: Postoperative right total knee replacement. Small joint effusion. Electronically signed by: Tj Emanuel MD 03/18/2018 5:18 PM EDT
--- NOTE | 2018-03-18 17:20 | CT ---
EXAM DATE: 03/18/2018 5:07 PM EDT AGE/SEX: 77 years / Male INDICATIONS: Syncope. CLINICAL DATA: This is the patient's initial encounter. Patient reports that signs and symptoms have been present for 1 day and indicates a pain score of 5/10. MEDICAL/SURGICAL HISTORY: Gastroesophageal reflux disease. Cerebrovascular disease. Hypertension. BPH Splenectomy. RADIATION DOSE: 62.61 CTDI (mGy) COMPARISON: [facility], CT HEAD W/O CONTRAST, 03/16/2018. . TECHNIQUE: CT of the head without contrast. Using automated exposure control and adjustment of the mA and/or kV according to patient size, radiation dose was kept as low as reasonably achievable to ob tain optimal diagnostic quality images. DICOM format image data is available electronically for revi ew and comparison. FINDINGS: Small focus of hypodensity with adjacent presumed hemorrhage in the left basal ganglia is unchanged. The brain is elsewhere stable symmetric and benign in appearance. The ventricles are symmetric and no rmal. There is nothing to suggest acute infarction. There is mild mucosal disease in facial sinuses. CONCLUSION: Stable brain appearance . Electronically signed by: Michele Lawson MD 03/18/2018 5:19 PM EDT
--- NOTE | 2018-03-18 17:36 | ED ---
HPI General Chief complaint: Dizziness Stated complaint: Dizziness/Fall Time Seen by Provider: 03/18/18 16:30 Source: patient, EMS and RN notes reviewed Mode of arrival: EMS History of Present Illness HPI narrative: 77yM presenting with syncope vs near-syncope. 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 He was seen in our ED 2 days ago for fall, had no significant traumatic injuries on workup, and was discharged back to rehab. The patient presents again today after another fall; he says that he went out to lunch, stood up from his chair and felt "dizzy like I was going to pass out". He does not know if he lost consciousness but fell to his knees, injuring his left knee. He is also unsure if he hit his head. He denies fever, chills, chest pain, cough, or dyspnea. He has right-sided upper and lower extremity weakness from his recent hemorrhagic lesions/ subsequent cerebral edema. Related Data Home Medications Medication Instructions Recorded Confirmed alfuzosin 10 mg PO HS 02/20/18 03/18/18 amiodarone 200 mg PO DAILY 02/20/18 03/18/18 atorvastatin 40 mg PO DAILY 02/20/18 03/18/18 budesonide-formoterol 2 puff INHALATION BID 02/20/18 03/18/18 finasteride 5 mg PO DAILY 02/20/18 03/18/18 gabapentin 600 mg PO TID 02/20/18 03/18/18 lisinopril 10 mg PO DAILY 02/20/18 03/18/18 esrnldix-ldl-EI-lycopen-lutein 1 tab PO DAILY 02/20/18 03/18/18 [Centrum Silver] pantoprazole 40 mg PO DAILY 02/20/18 03/18/18 ropinirole [Requip XL] 6 mg PO DAILY 02/20/18 03/18/18 ropinirole [Requip] 0.5 - 1 mg PO Q12HR PRN 02/20/18 03/18/18 sertraline [Zoloft] 150 mg PO DAILY 02/20/18 03/18/18 triamcinolone acetonide 1 applic TOPICAL DIRECTED 02/20/18 03/18/18 fluticasone-vilanterol [Breo 1 inh INHALATION DAILY 03/18/18 03/18/18 Ellipta] metoprolol tartrate 25 mg PO BID 03/18/18 03/18/18 Previous Rx's Medication Instructions Recorded albuterol sulfate 2.5 mg NEB Q2HR NEB PRN ml 02/28/18 amlodipine [Norvasc] 10 mg PO DAILY tab 02/28/18 Allergies Allergy/AdvReac Type Severity Reaction Status Date / Time No Known Allergies Allergy Verified 03/18/18 17:21 Review of Systems ROS: all other systems reviewed are negative Constitutional Denies fever(s) Eyes Denies blurry vision Cardiovascular Denies chest pain Respiratory Denies cough Gastrointestinal Denies nausea Genitourinary Denies dysuria Musculoskeletal Denies back pain Neurologic Reports confusion Psychiatric Reports confusion PMFSH History History Provided By: Patient Medical History Medical History History of CVA (cerebrovascular accident) (Acute) Hx of fall (Acute) Hypertension (Acute) Polyneuropathy in other diseases classified elsewhere (Acute) Anxiety (Acute) Atrial fibrillation (Acute) BPH (benign prostatic hyperplasia) (Acute) Chronic anticoagulation (Acute) Depression (Acute) GERD (gastroesophageal reflux disease) (Acute) HLD (hyperlipidemia) (Acute) Peripheral neuropathy (Acute) RLS (restless legs syndrome) (Acute) Tobacco abuse, in remission (Acute) Surgical History Surgical History H/O sinus surgery (Acute) H/O splenectomy (Acute) History of bilateral knee arthroplasty (Acute) Family History Family History Mother Diabetes Social History Social History Substance History: No History of Abuse Second Hand Smoke Exposure: No Smoking Status: Former smoker Tobacco Type: Cigarettes Years Smoked: 15 Smoking End Date: 46 years ago How Often Do You Have a Drink Containing Alcohol: Never Recent Travel in [facility] within the Last 8 Weeks: No Recent Out of Country Travel within the Last 8 Weeks: No Immunization History Tetanus Immunization: Unsure Exam Const General: healthy appearing and no acute distress HENMT Head: normocephalic and atraumatic Face and sinus: normal facial exam Eyes General: appearance normal, both eyes and all related structures Pupils: PERRL Chest Chest: normal inspection of the chest Resp Effort & Inspection: normal respiratory effort Auscultation: no rhonchi and no wheezes Cardio Rate: regular rate Rhythm: regular rhythm GI Inspection: non-distended Palpation: soft and nontender Skin General: no rashes or lesions noted Neuro General: alert, awake and oriented x3 Other: Mild expressive aphasia Follows all commands Speech clear, no slurring Pupils 3 mm and reactive bilaterally Motor strength 5/5 in LUE/ LLE, 4/5 in RUE/ RLE Extrem Other: Tenderness and mild swelling to left anterior knee, no ecchymoses or abrasions Pelvis stable, leg lengths equal Psych Affect: normal affect Course Initial Documented Vital Signs Temperature 98.3 F 03/18/18 15:42 Pulse Rate 62 03/18/18 15:42 Respiratory Rate 18 03/18/18 15:42 Blood Pressure 103/63 03/18/18 15:42 Pulse Oximetry 96 03/18/18 15:42 Last Documented Vital Signs Temperature 98.4 F 03/18/18 17:16 Pulse Rate 62 03/18/18 18:30 Respiratory Rate 16 03/18/18 18:30 Blood Pressure 157/77 H 03/18/18 18:30 Pulse Oximetry 96 03/18/18 17:16 Medical Decision Making [facility] Narrative Medical decision making narrative: Assessment: 77yM presenting with recurrent falls and ? syncopal episode Plan: EKG and monitor Labs CTH CXR X-ray bilateral knees Addendum: This patient cannot go home as he has recurrent falls concerning for possible syncopal episodes, possible non-convulsive seizures given known brain lesions. He will need cardiac monitoring and further workup. Case discussed with Dr. Davis of [facility]. Patient understands and agrees with plan. Medical Screen Exam Complete: Yes Emergency Medical Condition: Yes Differential Diagnosis Differential Diagnosis: Differential diagnosis includes, but is not limited to: syncope, near-syncope, arrhythmia, recurrent ICH, non-convulsive seizure, electrolyte abnormality, anemia, dehydration Medical Records Medical records reviewed: Yes I reviewed the patient's medical records. Lab Data Lab results reviewed: Yes I reviewed the patient's lab results. Result diagrams: 03/18/18 16:40 03/18/18 16:40 Lab Results 03/18/18 03/18/18 Range/Units 16:40 16:40 CBC w Diff Auto diff final WBC 10.0 (4.0-11.0) th/mm3 RBC 3.84 L (4.50-5.90) mil/mm3 Hgb 12.4 L (13.0-17.0) gm/dL Hct 37.9 L (39.0-51.0) % MCV 98.7 (80.0-100.0) fL MCH 32.3 (27.0-34.0) pg MCHC 32.8 (32.0-36.0) % RDW 13.6 (11.6-17.2) % Plt Count 174 (150-450) th/mm3 MPV 10.1 (7.0-11.0) fL Neut % (Auto) 67.0 (16.0-70.0) % Lymph % (Auto) 21.4 (9.0-44.0) % [place] % (Auto) 7.1 (0.0-8.0) % Eos % (Auto) 4.1 H (0.0-4.0) % Baso % (Auto) 0.4 (0.0-2.0) % Neut # (Auto) 6.8 (1.8-7.7) th/mm3 Lymph # (Auto) 2.1 (1.0-4.8) th/mm3 [place] # (Auto) 0.7 (0.0-0.9) th/mm3 Eos # (Auto) 0.4 (0.0-0.4) th/mm3 Baso # (Auto) 0.0 (0.0-0.2) th/mm3 WBC Differential . Differential Comment . Sodium 143 (136-145) meq/L Potassium 4.0 (3.5-5.1) meq/L Chloride 110 H (98-107) meq/L Carbon Dioxide 27.2 (21.0-32.0) meq/L Anion Gap 6 (5-15) meq/L BUN 24 H (7-18) mg/dL Creatinine 1.60 H (0.60-1.30) mg/dL Estimated GFR 42 L (>89) mL/min Random Glucose 90 (74-106) mg/dL Calcium 8.5 (8.5-10.1) mg/dL Magnesium 1.8 (1.5-2.5) mg/dL Total Bilirubin 0.5 (0.2-1.0) mg/dL AST 19 (15-37) U/L ALT 25 (12-78) U/L Alkaline Phosphatase 75 (45-117) U/L Troponin I Less than 0.02 L (0.02-0.05) ng/mL Total Protein 5.9 L (6.4-8.2) g/dL Albumin 3.2 L (3.4-5.0) g/dL Imaging Data Radiologist's impression: Chest X-Ray 03/18/18 16:23 CONCLUSION: Heart size enlarged. Minimal basilar atelectasis. Head CT 03/18/18 16:23 CONCLUSION: Stable brain appearance . Knee X-Ray 03/18/18 16:23 CONCLUSION: Left total knee replacement with moderate to large knee joint effusion. Knee X-Ray 03/18/18 16:23 CONCLUSION: Postoperative right total knee replacement. Small joint effusion. ECG Data Attestation: I personally reviewed and interpreted this ECG as follows: Interpretation: Rate: 75 BPM Rhythm: Atrial fibrillation with PVC x 1 [place]: Normal Intervals: Normal intervals, no blocks, QTc 463 ms Q waves: III, V2 T waves: Upright, no inversions ST segments: No elevations or depressions Impression: No changes as compared to EKG from 02/20/2018. Discharge Plan Discharge Disposition Patient Disposition: 30 Still Patient Discharge Condition Condition: Good Discharge Details Diagnosis: Syncope, Multiple falls Physicians Team ED Provider: Sheila Young Primary Care Provider: Primary Care Dequani,Gini Attending Provider: Rasta Davis Discharge Interventions Interventions: ED Discharge Assessment Last Done: 03/18/18 18:46 Vital Signs Last Done: 03/18/18 17:20 Status ED Status: Left Department Discharge Information Discharge Date/Time: 03/18/18 18:47
[2018-03-18] MEDS ORDERED: Acetaminophen 325 MG Tablet PO PRN (18:20)
[2018-03-18] MEDS ORDERED: Bisacodyl 10 MG Supp RECTAL PRN (18:20)
--- NOTE | 2018-03-18 20:53 | US ---
EXAM DATE: 03/18/2018 8:17 PM EDT AGE/SEX: 77 years / Male INDICATIONS: Near syncope with frequent falls. CLINICAL DATA: This is the patient's initial encounter. Patient reports that signs and symptoms have been present for 2 weeks and indicates a pain score of 0/10. MEDICAL/SURGICAL HISTORY: Cerebrovascular disease. Stroke. Hypertension. Hyperlipidemia. Pe ripheral neuropathy. Hemorrhagic brain lesions. Cerebral edema. Splenectomy. Bilateral knee arthro plasty. Sinus surgery. COMPARISON: No prior exams available for comparison. VELOCITY PARAMETERS: ICA/CCA Ratio: Right 1.2 , Left 1.7 ICA: Right 64 cm/sec, Left 65 cm/sec CCA: Right 56 cm/sec, Left 39 cm/sec ECA: Right 73 cm/sec, Left 61 cm/sec Vertebral: Right 40 cm/sec antegrade, Left 82 cm/sec antegrade FINDINGS: Right Carotid: Mild arteriosclerotic plaque is visualized.The waveforms are within normal limits. Left Carotid: Mild arteriosclerotic plaque is visualized. The waveforms are within normal limits. Other: None. CONCLUSION: Bilateral plaquing with less than 40% diameter stenosis by velocity criteria. Electronically signed by: Augusto Sampson MD 03/18/2018 8:51 PM EDT
[2018-03-18] MEDS: Budesonide-Formoterol 160/4.5 MCG 6 GM Inhaler INH SCH (21:52)
[2018-03-18] MEDS: Senna/Docusate Sodium 8.6/50 MG Tablet PO SCH (21:52)
[2018-03-18] MEDS: Metoprolol Tartrate 25 MG Tablet PO SCH (21:52)
[2018-03-18] MEDS: Sod Chloride 0.9% Inj 1,000 ML IV.CONT SCH (21:53)
[2018-03-18 23:16] LABS: Creatine Kinase 53 U/L (39-308)
[2018-03-19 06:22] LABS: Bilirubin,Urine Negative (Negative); Clarity,Urine Clear (Clear); Color,Urine Yellow (Yellw/Straw); Glucose,Urine (UA) Negative (Negative); Leukocyte Esterase,Urine Negative (Negative); Nitrite,Urine Negative (Negative); PH,Urine 6.5 (5.0-8.5); Specific Gravity,Urine 1.015 (1.002-1.035)
[2018-03-19 06:32] LABS: Amorphous Sediment,Urine Rare /hpf; Hyaline Casts,Urine 0-3 /lpf (0-3); Squamous Epithelial Cell,Urine 0-5 /hpf (0-5)
[2018-03-19] MEDS: Sod Chloride 0.9% Inj 1,000 ML IV.CONT SCH ×3 (06:34→17:57)
[2018-03-19 06:54] LABS: Baso % (Auto) 0.3 % (0.0-2.0); Eos # (Auto) 0.4 th/mm3 (0.0-0.4); Eos % (Auto) 3.4 % (0.0-4.0); Hematocrit 36.8 % (39.0-51.0); Hemoglobin 12.2 gm/dL (13.0-17.0); Lymph # (Auto) 2.2 th/mm3 (1.0-4.8); Lymph % (Auto) 17.8 % (9.0-44.0); Mean Corpuscular HGB Conc 33.1 % (32.0-36.0); Mean Corpuscular Volume 99.7 fL (80.0-100.0); Mono # (Auto) 1.4 th/mm3 (0.0-0.9); Mono % (Auto) 11.5 % (0.0-8.0); Neut # (Auto) 8.1 th/mm3 (1.8-7.7); Platelet Count 164 th/mm3 (150-450); Red Cell Distribution Width 13.3 % (11.6-17.2); White Blood Count 12.1 th/mm3 (4.0-11.0)
[2018-03-19 07:08] LABS: Potassium 3.7 meq/L (3.5-5.1)
[2018-03-19 07:12] LABS: Calcium 8.3 mg/dL (8.5-10.1); Carbon Dioxide 27.3 meq/L (21.0-32.0)
[2018-03-19 07:42] LABS: Creatine Kinase 55 U/L (39-308)
[2018-03-19] MEDS: Gabapentin 300 MG Capsule PO SCH ×3 (09:10→17:58)
[2018-03-19] MEDS: Sertraline 50 MG Tablet PO SCH (09:10)
[2018-03-19] MEDS: Lisinopril 10 MG Tablet PO SCH (09:11)
[2018-03-19] MEDS: Senna/Docusate Sodium 8.6/50 MG Tablet PO SCH ×2 (09:11→20:57)
[2018-03-19] MEDS: Finasteride 5 MG Tablet PO SCH (09:11)
[2018-03-19] MEDS: amLODIPine 10 MG Tablet PO SCH (09:11)
[2018-03-19] MEDS: Metoprolol Tartrate 25 MG Tablet PO SCH ×2 (09:11→20:57)
[2018-03-19] MEDS: Amiodarone 200 MG Tablet PO SCH (09:11)
--- NOTE | 2018-03-19 11:02 | P.HP ---
History of Present Illness Primary Care Physician: No Primary Care Physician Chief Complaint: Syncope History of Present Illness: 77-year-old with known history of hypertension, hyperlipidemia, atrial fibrillation status post ablation, recent history of intracranial hemorrhage who presented the hospital because of recurrent syncope. Patient states that while he was having lunch yesterday he went to stand up and all of a sudden had a syncopal episode landing on the ground. Injuring his knees. Patient states that this is the second time in 2 days of this happened. It did happen the day before and he did come to emergency department that time and was evaluated by the ER physician and discharged home. And then yesterday same thing happened and he discussed in eating, he stood up and collapsed to the floor. He states that both his legs felt very weak in the he lost consciousness. Patient came to the emergency department again and it was requested that the patient be admitted for further evaluation and management. He did have a plethora of radiological studies performed which did not indicate any acute abnormalities. Patient has had follow-up CTs and on 03/16/18 indicated a evolving hemorrhage. Yesterday when he came and showed stable CT. Because of the recurrent syncope is recommended by the ER physician that the patient be observed in the hospital for further evaluation and management. Patient was just admitted in the hospital within the last month for a intracranial hemorrhage. During that visit patient had full workup done to include echocardiogram showing ejection fraction 55-60%. Left ventricular function was normal. Patient on 03/16 and had multiple x-rays performed for evaluation. Everything was unremarkable except for the left knee which did show a moderate to large knee joint effusion. Patient does indicate that both of his knees hurt and are swollen. Patient denies any dysphagia, headache, visual disturbances, unilateral weakness , paresthesia. - Diagnosis (1) Syncope Review of Systems All other systems reviewed negative except as stated in HPI Musculoskeletal: Reports abnormal walking, Reports joint pain Neurologic: Reports fainting PMFSH - History History Provided By: Patient - Medical History Medical History: Medical History (Last Reviewed 03/19/18 @ 11:06 by SEVERINO Argueta) History of CVA (cerebrovascular accident) Hx of fall Hypertension Polyneuropathy in other diseases classified elsewhere Anxiety Atrial fibrillation BPH (benign prostatic hyperplasia) Chronic anticoagulation Depression GERD (gastroesophageal reflux disease) HLD (hyperlipidemia) Peripheral neuropathy RLS (restless legs syndrome) Tobacco abuse, in remission - Surgical History Surgical History: Surgical History (Last Reviewed 03/19/18 @ 11:06 by SEVERINO Argueta) H/O sinus surgery H/O splenectomy History of bilateral knee arthroplasty - Family History Family History: Family History (Last Reviewed 03/19/18 @ 11:06 by SEVERINO Argueta) Mother Diabetes - Tobacco History Second Hand Smoke Exposure: No Tobacco Use In Past 30 Days: No Smoking Status: Former smoker Tobacco Type: Cigarettes Years Smoked: 15 Smoking End Date: 46 years ago - Alcohol History How Often Do You Have a Drink Containing Alcohol: Never - Substance Use History Substance History: No History of Abuse - Travel History Recent Travel in the [place] Within the Last 8 Weeks: No Recent Travel Out of the Country Within the Last 8 Weeks: No - Immunization History Tetanus Immunization: Unsure Medications and Allergies Active Medications: Active Medications Acetaminophen (Tylenol) 650 mg PO Q4H PRN PRN Reason: Temp > 100.4 Al Hydroxide/Mg Hydroxide (Milk Of Magnesia Liq) 30 ml PO Q12H PRN PRN Reason: Mild Constipation Amiodarone HCl (Cordarone) 200 mg PO DAILY [facility] Last Admin: 03/19/18 09:11 Dose: 200 mg Amlodipine Besylate (Norvasc) 10 mg PO DAILY [facility] Last Admin: 03/19/18 09:11 Dose: 10 mg Atorvastatin Calcium (Lipitor) 40 mg PO DAILY [facility] Last Admin: 03/19/18 09:10 Dose: 40 mg Bisacodyl (Dulcolax Supp) 10 mg RECTAL DAILY PRN PRN Reason: SEVERE CONSITIPATION Budesonide/Formoterol Fumarate (Symbicort 160/4.5 Mcg Inh) 2 puff INH BID [facility] Last Admin: 03/18/18 21:52 Dose: 2 puff Finasteride (Proscar) 5 mg PO DAILY [facility] Last Admin: 03/19/18 09:11 Dose: 5 mg Gabapentin (Neurontin) 600 mg PO TID [facility] Last Admin: 03/19/18 09:10 Dose: 600 mg Sodium Chloride (Ns Inj) 1,000 mls @ 100 mls/hr IV.CONT .Q10H [facility] Last Admin: 03/19/18 06:34 Dose: 100 mls/hr Lactulose (Lactulose Liq) 30 ml PO DAILY PRN PRN Reason: SEVERE CONSITIPATION Lisinopril (Prinivil) 10 mg PO DAILY [facility] Last Admin: 03/19/18 09:11 Dose: 10 mg Metoprolol Tartrate (Lopressor) 25 mg PO BID [facility] Last Admin: 03/19/18 09:11 Dose: 25 mg Ondansetron HCl (Zofran Inj) 4 mg IV.PUSH Q6H PRN PRN Reason: NAUSEA OR VOMITING Pantoprazole Sodium (Protonix) 40 mg PO DAILY [facility] Last Admin: 03/19/18 09:10 Dose: 40 mg Senna/Docusate Sodium (Alanna-Colace) 1 tab PO BID [facility] Last Admin: 03/19/18 09:11 Dose: Not Given Sennosides (Senokot) 17.2 mg PO Q12H PRN PRN Reason: Moderate Constipation Sertraline HCl (Zoloft) 150 mg PO DAILY [facility] Last Admin: 03/19/18 09:10 Dose: 150 mg Allergies Allergy/AdvReac Type Severity Reaction Status Date / Time No Known Allergies Allergy Verified 03/18/18 17:21 Home Medications Medication Instructions Recorded Confirmed Type alfuzosin 10 mg PO HS 02/20/18 03/18/18 History amiodarone 200 mg PO DAILY 02/20/18 03/18/18 History atorvastatin 40 mg PO DAILY 02/20/18 03/18/18 History budesonide-formoterol 2 puff INHALATION BID 02/20/18 03/18/18 History finasteride 5 mg PO DAILY 02/20/18 03/18/18 History gabapentin 600 mg PO TID 02/20/18 03/18/18 History lisinopril 10 mg PO DAILY 02/20/18 03/18/18 History eejnpbbt-uav-LT-lycopen-lutein 1 tab PO DAILY 02/20/18 03/18/18 History [Centrum Silver] pantoprazole 40 mg PO DAILY 02/20/18 03/18/18 History ropinirole [Requip XL] 6 mg PO DAILY 02/20/18 03/18/18 History ropinirole [Requip] 0.5 - 1 mg PO Q12HR PRN 02/20/18 03/18/18 History sertraline [Zoloft] 150 mg PO DAILY 02/20/18 03/18/18 History triamcinolone acetonide 1 applic TOPICAL DIRECTED 02/20/18 03/18/18 History fluticasone-vilanterol [Breo 1 inh INHALATION DAILY 03/18/18 03/18/18 History Ellipta] metoprolol tartrate 25 mg PO BID 03/18/18 03/18/18 History Exam Vital signs: Vital Signs 03/18/18 15:42 03/18/18 17:15 03/18/18 17:16 Temperature 98.3 F 98.4 F Pulse Rate 62 75 75 Respiratory Rate 18 18 Blood Pressure 103/63 163/100 H Pulse Oximetry 96 96 03/18/18 17:20 03/18/18 18:30 03/18/18 20:00 Temperature 97 F L Pulse Rate 62 73 Respiratory Rate 16 20 Blood Pressure 171/86 H 157/77 H 150/90 H Pulse Oximetry 95 03/19/18 00:00 03/19/18 07:37 Temperature 96.5 F L 97.9 F Pulse Rate 72 77 Respiratory Rate 20 20 Blood Pressure 127/79 141/85 H Pulse Oximetry 98 94 L Intake & Output 03/18/18 03/19/18 03/19/18 18:59 06:59 18:59 Intake Total 1000 / 1000 1240 / 1240 Output Total 1000 / 1000 Balance 1000 / 1000 240 / 240 Weight 119.295 kg 118.3 kg Intake: IV 1000 / 1000 1000 / 1000 NS Inj 1,000 ML @ 100 mls/hr IV 1000 / 1000 .CONT .Q10H [facility] Rx#:[id number] NS Inj 1,000 ML @ Wide Open IV. 1000 / 1000 SIG BOLUS ONE Rx#:[id number] Oral 240 / 240 Output: Urine 1000 / 1000 Other: Weight On Admission 53.977 kg Narrative: GENERAL: Well-developed, well-nourished, in no acute distress. alert and orientated HEENT: Head is normocephalic without any lesions or masses noted. Facial features are symmetric. Eyes: Pupils equal round reactive to light. Extraocular muscles are intact. Conjunctivae were clear. Oropharyngeal: Pharynx without any erythema edema. Tongue is midline without deviation. Buccal mucosa is moist without any masses or lesions NECK: Supple without any masses. Trachea midline no deviation. No JVD, no bruits are appreciated CARDIAC: Regular rhythm, regular rate. S1/S2 are heard. No murmurs gallops or rubs. LUNGS: Clear to auscultation bilaterally. No wheeze, rhonchi or rales. No use of accessory muscles on inspiration or expiration. ABDOMEN: Soft, nontender. Nondistended. Bowel sounds heard in all 4 quadrants. No organomegaly or masses. Negative rebound, negative guarding EXTREMITIES: No edema, pulses are equal bilaterally. No cyanosis or clubbing NEUROLOGY: Mood and affect appear appropriate. Cranial nerves II through XII grossly intact. Muscle strength 5/5 in upper and lower extremities bilaterally. Deep tendon reflexes are 2+ in upper and lower extremities bilaterally. Results - Labs CBC & Chem 7: 03/19/18 05:41 03/19/18 05:41 Labs: Laboratory Results - last 24 hr 03/18/18 03/18/18 03/18/18 16:40 16:40 22:40 CBC w Diff Auto diff final WBC 10.0 RBC 3.84 L Hgb 12.4 L Hct 37.9 L MCV 98.7 MCH 32.3 MCHC 32.8 RDW 13.6 Plt Count 174 MPV 10.1 Neut % (Auto) 67.0 Lymph % (Auto) 21.4 Walton % (Auto) 7.1 Eos % (Auto) 4.1 H Baso % (Auto) 0.4 Neut # (Auto) 6.8 Lymph # (Auto) 2.1 Walton # (Auto) 0.7 Eos # (Auto) 0.4 Baso # (Auto) 0.0 WBC Differential . Differential Comment . Sodium 143 Potassium 4.0 Chloride 110 H Carbon Dioxide 27.2 Anion Gap 6 BUN 24 H Creatinine 1.60 H Estimated GFR 42 L Random Glucose 90 Calcium 8.5 Magnesium 1.8 Total Bilirubin 0.5 AST 19 ALT 25 Alkaline Phosphatase 75 Total Creatine Kinase 53 Troponin I Less than 0.02 L Less than 0.02 L Total Protein 5.9 L Albumin 3.2 L Urine Color Urine Clarity Urine pH Ur Specific Congers Urine Protein Urine Glucose (UA) Urine Ketones Urine Occult Blood Urine Nitrate Urine Bilirubin Urine Urobilinogen Ur Leukocyte Esterase Urine RBC Ur Squamous Epith Cells Amorphous Sediment Hyaline Casts Micro UA Comment Urine Culture Comments 03/19/18 03/19/18 03/19/18 05:41 05:41 05:41 CBC w Diff Auto diff final WBC 12.1 H RBC 3.70 L Hgb 12.2 L Hct 36.8 L MCV 99.7 MCH 33.0 MCHC 33.1 RDW 13.3 Plt Count 164 MPV 11.0 Neut % (Auto) 67.0 Lymph % (Auto) 17.8 Walton % (Auto) 11.5 H Eos % (Auto) 3.4 Baso % (Auto) 0.3 Neut # (Auto) 8.1 H Lymph # (Auto) 2.2 Walton # (Auto) 1.4 H Eos # (Auto) 0.4 Baso # (Auto) 0.0 WBC Differential . Differential Comment . Sodium 144 Potassium 3.7 Chloride 111 H Carbon Dioxide 27.3 Anion Gap 6 BUN 19 H Creatinine 1.20 Estimated GFR 59 L Random Glucose 84 Calcium 8.3 L Magnesium Total Bilirubin AST ALT Alkaline Phosphatase Total Creatine Kinase 55 Troponin I Less than 0.02 L Total Protein Albumin Urine Color Urine Clarity Urine pH Ur Specific [place] Urine Protein Urine Glucose (UA) Urine Ketones Urine Occult Blood Urine Nitrate Urine Bilirubin Urine Urobilinogen Ur Leukocyte Esterase Urine RBC Ur Squamous Epith Cells Amorphous Sediment Hyaline Casts Micro UA Comment Urine Culture Comments 03/19/18 06:15 CBC w Diff WBC RBC Hgb Hct MCV MCH MCHC RDW Plt Count MPV Neut % (Auto) Lymph % (Auto) Walton % (Auto) Eos % (Auto) Baso % (Auto) Neut # (Auto) Lymph # (Auto) Walton # (Auto) Eos # (Auto) Baso # (Auto) WBC Differential Differential Comment Sodium Potassium Chloride Carbon Dioxide Anion Gap BUN Creatinine Estimated GFR Random Glucose Calcium Magnesium Total Bilirubin AST ALT Alkaline Phosphatase Total Creatine Kinase Troponin I Total Protein Albumin Urine Color Yellow Urine Clarity Clear Urine pH 6.5 Ur Specific [place] 1.015 Urine Protein Negative Urine Glucose (UA) Negative Urine Ketones Negative Urine Occult Blood Negative Urine Nitrate Negative Urine Bilirubin Negative Urine Urobilinogen 1.0 Ur Leukocyte Esterase Negative Urine RBC 4-15 H Ur Squamous Epith Cells 0-5 Amorphous Sediment Rare H Hyaline Casts 0-3 Micro UA Comment Cath-culture not ind Urine Culture Comments Cath-cult not ind - Imaging Impressions Carotid Doppler Study 03/18/18 00:00 CONCLUSION: Bilateral plaquing with less than 40% diameter stenosis by velocity criteria. Chest X-Ray 03/18/18 16:23 CONCLUSION: Heart size enlarged. Minimal basilar atelectasis. Head CT 03/18/18 16:23 CONCLUSION: Stable brain appearance . Knee X-Ray 03/18/18 16:23 CONCLUSION: Left total knee replacement with moderate to large knee joint effusion. Knee X-Ray 18 16:23 CONCLUSION: Postoperative right total knee replacement. Small joint effusion. Caprini VTE Risk Assessment Caprini VTE Risk Assessment: Moderate/High Risk (score >= 2) Caprini Risk Assessment Model: Point Value = 1 Point Value = 2 Point Value = 3 Point Value = 5 Age 41-60 Minor surgery BMI > 25 kg/m2 Swollen legs Varicose veins or History of unexplained or recurrent spontaneous Oral contraceptives or hormone replacement Sepsis (< 1 month) Serious lung disease, including pneumonia (< 1 month) Abnormal pulmonary function Acute myocardial infarction Congestive heart failure (< 1 month) History of inflammatory bowel disease Medical patient at bed rest Age 61-74 Arthroscopic surgery Major open surgery (> 45 min) Laparoscopic surgery (> 45 min) Malignancy Confined to bed (> 72 hours) Immobilizing plaster cast Central venous access Age >= 75 History of VTE Family history of VTE Factor V Leiden Prothrombin [id number] Lupus anticoagulant Anticardiolipin antibodies Elevated serum homocysteine Heparin-induced thrombocytopenia Other congenital or acquired thrombophilia Stroke (< 1 month) Elective arthroplasty Hip, pelvis, or leg fracture Acute spinal cord injury (< 1 month) Prophylaxis Regimen: Total Risk Factor Score Risk Level Prophylaxis Regimen 0-1 Low Early ambulation 2 Moderate Order ONE of the following: *Sequential Compression Device (SCD) *Heparin 5000 units SQ BID 3-4 Higher Order ONE of the following medications: *Heparin 5000 units SQ TID *Enoxaparin/Lovenox 40 mg SQ daily (WT < 150 kg, CrCl > 30 mL/min) *Enoxaparin/Lovenox 30 mg SQ daily (WT < 150 kg, CrCl > 10-29 mL/min) *Enoxaparin/Lovenox 30 mg SQ BID (WT < 150 kg, CrCl > 30 mL/min) AND/OR *Sequential Compression Device (SCD) 5 or more Highest Order ONE of the following medications: *Heparin 5000 units SQ TID (Preferred with Epidurals) *Enoxaparin/Lovenox 40 mg SQ daily (WT < 150 kg, CrCl > 30 mL/min) *Enoxaparin/Lovenox 30 mg SQ daily (WT < 150 kg, CrCl > 10-29 mL/min) *Enoxaparin/Lovenox 30 mg SQ BID (WT < 150 kg, CrCl > 30 mL/min) AND *Sequential Compression Device (SCD) Assessment and Plan - Assessment (1) Syncope Code(s): R55 - Syncope and collapse Status: Acute - Plan Syncope, recurrent -History elicited by patient does sound like orthostasis with syncopal episodes -CT the brain did not indicate any acute abnormality at this time -Carotid ultrasound did not indicate any hemodynamically significant stenosis -MRI of the brain showed no acute findings. Expected single evolution of the left thalamic hematoma -Orthostatic vitals do not indicate any acute abnormality -Recent echocardiogram done within the last month was reviewed in the records and was unremarkable Bilateral knee pain secondary to fall -X-ray does indicate that there is a moderate to large knee effusion on the left knee -Physical therapy evaluation still recommending the patient to continue rehab -Pain control Atrial fibrillation, hypertension, hyperlipidemia -Rate is controlled this time -Home medications were evaluated and resume -Patient is not on any anticoagulation at this time, likely secondary to recent cranial hemorrhage Intracranial hemorrhage, recent history on 02/20/18 -CT on 03/16/18 indicated evolving hemorrhage -CT on 03/18/18 indicated stable finding DVT prevention -Sequential compression devices Discharge Planning: Discharge home in stable condition Activity: Ad deondre. Diet: Healthy heart diet Medication per medication reconciliation Follow-up with primary medical doctor in 1 week
[2018-03-19] MEDS: Budesonide-Formoterol 160/4.5 MCG 6 GM Inhaler INH SCH ×2 (13:00→20:57)
--- NOTE | 2018-03-19 14:56 | ECG ---
Date Performed: 03/18/2018 Time Performed: 17:15:53 PTAGE: 77 years EKG: ATRIAL FIBRILLATION WITH controlled ventricular response. Ventricular ectopic beat present. NONSPECIFIC T-WAVE ABNORMALITY PROLONGED QT INTERVAL When compared to previous tracing, no significa nt change. ABNORMAL ECG PREVIOUS TRACING : 02/20/2018 16.00 DOCTOR: Asim Ceballos Interpretating Date/Time 03/19/2018 14:54:26
--- NOTE | 2018-03-19 14:58 | ECG ---
Date Performed: 03/18/2018 Time Performed: 22:36:39 PTAGE: 77 years EKG: ATRIAL FIBRILLATION with contolled ventricular response. Nonspecific T wave change. SEPTAL MYOCARDIAL INFARCTION Poor initial anterior force, which may be normal variant. When compared to prev ious tracing, premature ventricular Contractions are no longer present. ABNORMAL ECG PREVIOUS TRACING : 03/18/2018 17.15 DOCTOR: Asim Ceballos Interpretating Date/Time 03/19/2018 14:56:50
--- NOTE | 2018-03-19 14:59 | ECG ---
Date Performed: 03/19/2018 Time Performed: 04:30:44 PTAGE: 77 years EKG: ATRIAL FIBRILLATION NONSPECIFIC ST & T-WAVE ABNORMALITY Since previous tracing, no signific ant change noted ABNORMAL RHYTHM ECG PREVIOUS TRACING : 03/18/2018 22.36 DOCTOR: Asim Ceballos Interpretating Date/Time 03/19/2018 14:57:16
--- NOTE | 2018-03-19 18:00 | MR ---
EXAM DATE: 03/19/2018 5:45 PM EDT AGE/SEX: 77 years / Male INDICATIONS: . Syncope. Fall. CLINICAL DATA: This is the patient's initial encounter. Patient reports that signs and symptoms have been present for 2 days and indicates a pain score of 0/10. MEDICAL/SURGICAL HISTORY: Gastroesophageal reflux disease. Cerebrovascular disease. Hyperchol esterolemia. Brain Hemorrhage.HTN,Neuropathy, Afib, BPH Splenectomy. Total knee replacement, left. Total knee replacement, right. Sinus. COMPARISON: [facility] [place], MR HEAD W & W/O CONTRAST, 02/20/2018. O, CT HEAD W/O CONTRAST, 03/18/2018. . TECHNIQUE: Multiplanar, multisequence examination of the brain was performed without contrast. FINDINGS: Cerebrum: Prior MR 02/20/2018 had demonstrated left thalamic hemorrhage. On today's examination, ther e is been a decrease in the amount of surrounding edema and a change in the signal characteristics of the hematoma, now with surrounding areas of absent signal on T2 and central area of T1 shortening an d T2 prolongation and susceptibility artifact, characteristic of subacute and chronic blood products; this is an expected evolution of the hematoma. No new areas of hemorrhage seen. White Matter: Scattered partially confluent areas of T2 prolongation in the supratentorial white mat ter characteristic of diffuse ischemic change. Posterior Fossa: The cerebellum and brainstem are intact. The 4th ventricle is midline. The cerebel lopontine angle is unremarkable. The cerebellar tonsils are normal in position. Diffusion Imaging: No focal areas of restricted diffusion are seen. No evidence of acute infarction . Extracranial: Stable bilateral maxillary sinus disease. CONCLUSION: 1. No acute findings in the brain. 2. Expected signal evolution of the left thalamic hematoma. Electronically signed by: John Cespedes MD 03/19/2018 5:58 PM EDT
[2018-03-20] MEDS: Sod Chloride 0.9% Inj 1,000 ML IV.CONT SCH (04:08)
[2018-03-20 07:24] VITALS: RESP 20; O2SAT 92
--- NOTE | 2018-03-20 07:47 | P.PN ---
Subjective Interval history: 77-year-old male who is seen and examined in follow-up today because of syncopal episode. Patient denies any new complaints. Patient has active discharge and since yesterday. Awaiting case management for discharge back to residential facility. Vital signs are stable. Patient remains afebrile. Physical Exam Vital signs: Vital Signs 03/19/18 11:06 03/19/18 15:06 03/19/18 20:00 Temperature 97.8 F 97.6 F 98.7 F Pulse Rate 64 68 55 L Respiratory Rate 20 20 16 Blood Pressure 111/63 104/68 115/63 Pulse Oximetry 95 95 96 03/20/18 00:00 03/20/18 07:24 Temperature 98.1 F 97.8 F Pulse Rate 72 73 Respiratory Rate 16 20 Blood Pressure 119/69 134/83 Pulse Oximetry 95 92 L Intake & Output 03/19/18 03/20/18 03/20/18 18:59 06:59 18:59 Intake Total 2140 / 2140 1000 / 1000 Output Total 1600 / 1600 625 / 625 Balance 540 / 540 375 / 375 Weight 117.4 kg Intake: IV 1000 / 1000 1000 / 1000 NS Inj 1,000 ML @ 100 mls/hr IV 1000 / 1000 1000 / 1000 .CONT .Q10H [facility] Rx#:[id number] Oral 1140 / 1140 Output: Urine 1600 / 1600 625 / 625 Narrative: GENERAL: Well-developed, well-nourished, in no acute distress. alert and orientated HEENT: Head is normocephalic without any lesions or masses noted. Facial features are symmetric. Eyes: Extraocular muscles are intact. Conjunctivae were clear. NECK: Supple without any masses. Trachea midline no deviation. No JVD, CARDIAC: Regular rhythm, regular rate. S1/S2 are heard. No murmurs gallops or rubs. LUNGS: Clear to auscultation bilaterally. No wheeze, rhonchi or rales. No use of accessory muscles on inspiration or expiration. ABDOMEN: Soft, nontender. Nondistended. Bowel sounds heard in all 4 quadrants. No organomegaly or masses. Negative rebound, negative guarding EXTREMITIES: No edema, pulses are equal bilaterally. No cyanosis or clubbing NEUROLOGY: Mood and affect appear appropriate. Cranial nerves II through XII grossly intact. Results - Labs CBC & Chem 7: 03/19/18 05:41 03/19/18 05:41 - Imaging Impressions Head MRI 03/19/18 18:24 CONCLUSION: 1. No acute findings in the brain. 2. Expected signal evolution of the left thalamic hematoma. Assessment and Plan - Assessment (1) Syncope Code(s): R55 - Syncope and collapse Status: Acute - Plan Syncope, recurrent -History elicited by patient does sound like orthostasis with syncopal episodes -CT the brain did not indicate any acute abnormality at this time -Carotid ultrasound did not indicate any hemodynamically significant stenosis -MRI of the brain showed no acute findings. Expected single evolution of the left thalamic hematoma -Orthostatic vitals do not indicate any acute abnormality -Recent echocardiogram done within the last month was reviewed in the records and was unremarkable Bilateral knee pain secondary to fall -X-ray does indicate that there is a moderate to large knee effusion on the left knee, continue outpatient management -Physical therapy evaluation still recommending the patient to continue rehab -Pain control Atrial fibrillation, hypertension, hyperlipidemia -Rate is controlled this time -Home medications were evaluated and resume -Patient is not on any anticoagulation at this time, likely secondary to recent cranial hemorrhage Intracranial hemorrhage, recent history on 02/20/18 -CT on 03/16/18 indicated evolving hemorrhage -CT on 03/18/18 indicated stable finding DVT prevention -Sequential compression devices Discharge Planning: Awaiting case management to arrange discharge to residential facility in stable condition Activity: Ad deondre. Diet: Healthy heart diet Medication per medication reconciliation Follow-up with primary medical doctor in 1 week
[2018-03-20] MEDS: Finasteride 5 MG Tablet PO SCH (08:01)
[2018-03-20] MEDS: Sertraline 50 MG Tablet PO SCH (08:01)
[2018-03-20] MEDS: Gabapentin 300 MG Capsule PO SCH (08:01)
[2018-03-20] MEDS: Senna/Docusate Sodium 8.6/50 MG Tablet PO SCH (08:03)
[2018-03-20] MEDS: Metoprolol Tartrate 25 MG Tablet PO SCH (08:03)
[2018-03-20] MEDS: amLODIPine 10 MG Tablet PO SCH (08:03)
[2018-03-20] MEDS: Amiodarone 200 MG Tablet PO SCH (08:03)
[2018-03-20] MEDS: Lisinopril 10 MG Tablet PO SCH (08:03)
[2018-03-20] MEDS: Budesonide-Formoterol 160/4.5 MCG 6 GM Inhaler INH SCH (08:04)
[2018-03-20 11:12] VITALS: BP 130/80; PULSE 70; TEMP 97.6
== END 2018-03-20 12:07 ==
LOC: PH3 15:38 → PHED 15:38 → PHEDA 15:38 → PH3 18:46
PROVIDERS: ADMIT Family Medicine; ATTEND Family Medicine